=== PATIENT | male | born 1950 | race Caucasian/White ===

== ENCOUNTER 2025-01-10 10:57 | Outpatient (CLI) | payer MEDICARE, OTHER, SELFPAY ==
[2025-01-10 11:53] LABS: Albumin Level 4.6 g/dl (3.5-5.0); Chloride 103 mmol/L (98-107); Potassium 3.9 mmoL/L (3.5-5.1); Sodium 137 mmol/L (136-145)
[2025-01-10 11:56] LABS: Alanine Aminotransferase 32 U/L (12-78); Albumin/Globulin Ratio 1.7 (1.1-1.8); Alkaline Phosphatase 69 U/L (38-126); Anion Gap 9.9 mEq/L (5-15); Aspartate Amino Transferase 36 U/L (17-59); Bilirubin,Total 0.7 mg/dl (0.2-1.3); Blood Urea Nitrogen 18 mg/dl (9-20); Carbon Dioxide 28 mmol/L (22.0-30.0); Estimated Glomerular Filt Rate 111 ml/min (>60); GFR (African American) 134 ML/MIN (>60); Globulin 2.7 g/dL (1.3-3.2); Glucose 143 mg/dl (74-100); Iron 179 ug/dL (49-181); Total Protein,Serum 7.3 g/dl (6.3-8.2)
[2025-01-10 12:07] LABS: Total Iron Binding Capacity 423 ug/dL (261-462)
[2025-01-10 12:32] LABS: Ferritin 63.5 ng/ml (17.9-464)
[2025-01-10 12:55] LABS: INR 0.94 (0.9-1.1); Prothrombin Time 10.4 seconds (9.2-12.1)
[2025-01-10 14:04] LABS: Basophils % 0.4 % (0.1-2.0); Eosinophils # 0.1 K/mm3 (0.0-0.4); Eosinophils % 1.3 % (0.1-12.0); Hematocrit 44.6 % (42.0-52.0); Hemoglobin 15.1 g/dL (14.1-18.0); Lymphocytes # 2.2 K/mm3 (0.7-4.5); Lymphocytes % 30.2 % (10-50); Mean Corpuscular HGB Conc 33.9 g/dL (31.8-35.4); Mean Corpuscular Hemoglobin 31.2 pg (27.0-31.2); Mean Corpuscular Volume 92.1 fl (80-94); Mean Platelet Volume 9.1 fl (7.4-10.4); Monocytes # 0.4 K/mm3 (0.1-1.0); Monocytes % 5.9 % (1.7-9.3); Neutrophils # 4.4 K/mm3 (1.8-7.8); Neutrophils % 61.9 % (37.0-80.0); Platelet Count 227 K/mm3 (142-424); Red Blood Count 4.84 M/mm3 (4.60-6.20); White Blood Count 7.1 K/mm3 (4.8-10.8)
[2025-01-11 08:17] LABS: AFP, Tumor Marker 3.1 ng/mL (0.0-8.4)
[2025-01-13 00:08] LABS: ALT (SGPT) P5P 28 IU/L (0-55); AST (SGOT) P5P 31 IU/L (0-40); Alpha 2-Macroglobulins, Qn 432 mg/dL (110-276); Apolipoprotein A-1 127 mg/dL (101-178); Bilirubin, Total 0.2 mg/dL (0.0-1.2); Cholesterol, Total 189 mg/dL (100-199); Fibrosis Score 0.56 (0.00-0.21); GGT 52 IU/L (0-65); Glucose 144 mg/dL (70-99); Haptoglobin 285 mg/dL (34-355); NASH Score 0.68 (0.00-0.25); Steatosis Score 0.62 (0.00-0.40); Triglycerides 149 mg/dL (0-149)
== END 2025-01-10 23:59 | disposition home or self-care (01) ==
LOC: LAB 10:59
PROVIDERS: PCP Internal Medicine; Visit Provider Internal Medicine Gastroenterology
DX: K75.81 Nonalcoholic steatohepatitis (NASH) (principal); B19.20 Unspecified viral hepatitis C without hepatic coma; Z86.0101 Personal history of adenomatous and serrated colon polyps
CPT/HCPCS: 36415; 80053; 82105; 82172; 82247; 82465; 82728; 82947; 82977; 83010; 83540; 83550; 83883; 84450; 84460; 84478; 85025; 85610

== ENCOUNTER 2025-01-31 07:45 | Outpatient (CLI) | payer MEDICARE, OTHER, SELFPAY ==
--- NOTE | 2025-01-31 08:00 | US_ITS ---
FINAL REPORT CLINICAL HISTORY: Cirrhosis COMPARISON: None FINDINGS: HEPATIC ULTRASOUND Multiple transverse and longitudinal scans were performed of the right upper quadrant of the abdomen. FINDINGS: The liver is hyperechoic with a mildly nodular contour compatible with cirrhosis. No focal hepatic mass identified. No intrahepatic duct dilatation is identified. No evidence of common bile duct dilatation is identified. Doppler exam shows normal directional flow within patent hepatic and portal veins. No obvious gallstones are seen. No evidence of perihepatic fluid is identified. Right kidney is unremarkable. IMPRESSION: Cirrhotic appearance of the liver without evidence of biliary ductal dilatation Reviewed, Interpreted and Dictated by Skip Ness MD Transcribed by Miriam Chatman Authenticated and [facility]
--- NOTE | 2025-01-31 08:45 | CT_ITS ---
FINAL REPORT TECHNIQUE: Oral and IV contrast enhanced exam. Coronal and sagittal reconstructions obtained and reviewed. This study was performed with techniques to keep radiation doses as low as reasonably achievable, (ALARA). Individualized dose reduction techniques using automated exposure control or adjustment of mA and/or kV according to the patient''s size were employed. CLINICAL HISTORY: .ABD PAIN, HX DIVERTICULITIS, NAUSEA COMPARISON: None FINDINGS: Abdomen: No acute density is seen within the lung bases. The liver has a nodular contour suggestive of cirrhosis. There is a small cyst in the liver dome. The spleen is normal in size. Fatty replacement of the pancreas is noted. The remaining solid organs are negative. The gallbladder is unremarkable. The patient is status post gastric sleeve. No bowel obstruction is present. There is no free air. No fluid collection is seen. There is no adenopathy. Pelvis: No evidence of appendicitis. Pelvic bowel loops are unremarkable. The urinary bladder and prostate are unremarkable. There is no free fluid. No pelvic mass is seen. IMPRESSION: No acute findings. Underlying cirrhosis suspected. Reviewed, Interpreted and Dictated by Skip Ness MD Transcribed by Miriam Chatman Authenticated and [facility]
[2025-01-31] MEDS: SODIUM CHLORIDE 0.9% 10ML SYR (RAD ONLY) 10 ML IV (10:06)
[2025-01-31] MEDS: IOPAMIDOL-370 (76%);100ML BOTTLE 75 ML IV (10:07)
[2025-01-31] MEDS: BARIUM SULFATE(READI-CAT2);450ML BOTTLE 450 ML PO (10:07)
--- OUTSIDE RECORDS SUMMARY | 2025-02-01 21:43 | XMS_ITS | Clinical Summary ---
Author Organization [facility] , [facility] Address [address] [place] [address] Phone Care Team Providers Care Bacteriology Professor Name Role Phone Tiffany SCHMITT, Nikolai Collins Unavailable [phone] Festus Huitron MD Unavailable [phone] Reason for Visit and Chief Complaint [Patient Encounter] Problems Includes: Problems addressed during this encounter and other active Problems All Visits Onset Date Resolved Date Provider Condition S tatus Joint Pain, Localized in the Left Shoulder 11/01/2024 Britni Cutler PA-C Active Last Documented On 5 8:57AM ; [facility] Joint Pain in the Right Knee 11/13/2021 Leta Allen MD Active Last Documented On 2 10:34AM ; [facility] Plan of Treatment Pending Tests Order Diagnosis Results Due Ordering Palmira Allen Labs - Aspiration Aspiration 07/23/22 Nikolai teresa MD Last Documented On 2 3:01PM ; [facility] Assessments Includes: Assessments from this encounter No Assessments Recorded Medical Equipment - Implanted Devices Includes: Current Devices No Medical Equipment Recorded Medications Includes: Medications discussed during this encounter and other current Medications Current Medications (continue as prescribed) Ozempic (0.25 or 0.5 MG/DOSE ) 2 MG/3ML Subcutaneous Solution Pen-injector 07/26/2024 Provider: Diagnosis: Last Documented On 4 10:39AM By Kelsey Parisi ; [facility] Mupirocin 2% External Ointment 07/21/2023 Provider: Mainor Sargent MD Diagnosis: Last Documented On 3 9:11AM By Julianna Saba ; [facility], [facility] HumaLOG Mix 75/25 KwikPen (7 5-25) 100 UNIT/ML Subcutaneous Suspension Pen-injector 07/19/2023 Provider: James Huitron MD Diagnosis: Last Documented On 3 3:35PM By Julianna Saba ; [facility], [facility] Sulfamethoxazole-Trimethoprim 800-160 MG Oral Tablet 0 07/19/2023 Provider: Diagnosis: Last Documented On 3 9:11AM By Julianna Saba ; [facility] metroNIDAZOLE 500 MG Oral Tablet 07/19/2023 Provider : Diagnosis: Last Documented On 3 9:11AM By Julianna Saba ; [facility], [facility] ALPRAZolam 0.5 MG Oral Tablet 07/11/2023 Provider: Festus Huitron MD Diagnosis: Last Documented On 3 9:11AM By Julianna Saba ; [facility] Meloxicam 15 MG Oral Tablet 07/09/2023 Provider: Festus Huitron MD Diagnosis: Last Documented On 3 9:11AM By Julianna Saba ; [facility], [facility] Diclofenac Sodium 1% External Gel 07/08/2023 Provide r: Marquez Landa MD Diagnosis: Last Documented On 3 9:11AM By Julianna Saba ; [facility] Lisinopril 20 MG Oral Tablet 06/30/2023 Provider: Festus Huitron MD Diagnosis: Last Documented On 3 3:35PM By Julianna Saba ; [facility] Medications Administered Includes: Administered Medications from this encounter No Administered Medications Recorded Results Includes: Results discussed during this encounter No Results Recorded For Specified Dates History of Present Illness Includes: History of Present Illness from this encounter No History of Present Illness Recorded Social History No Social History Recorded - Smoking Status Unknown Medical History Includes: Medical History addressed during this encounter No Medical History Recorded Family History Includes: Family History addressed during this encounter No Family History Recorded Review of Systems Includes: Review of Systems from this encounter No Review of Systems Recorded Mental Status Includes: Mental Status from this encounter No Mental Status Recorded Functional Status Includes: Functional Status from this encounter No Functional Status Recorded Physical Exam Includes: Physical Exam from this encounter No Physical Exam Recorded Allergies Includes: Active Allergies No Known Allergies Encounters Encounter Provider Location Date Check-In Time Check-Out Time Diagnosis [Patient Encounter] Nikolai Allen MD 3 4:57PM 11:59PM Insurance Includes: Active Insurance Policies Plan Name Member ID Group # Subscriber Relationship Effect jorje Dates 1 - Medicare Part B [facility] [id number] Leonardo S True Self 10/25/2020 - Un known 2 - [employer] [id number] Leonardo S True Self 10/25/2020 - Unknown Clinical Notes Includes: Clinical Notes from this encounter No Clinical Notes Recorded
--- OUTSIDE RECORDS SUMMARY | 2025-02-01 21:43 | XMS_ITS | Clinical Summary ---
Author Organization [facility] , [facility] Address [address] [place] [address] Phone Care Team Providers Care Inflated Pad Buffer Name Role Phone Tiffany SCHMITT, Nikolai Collins Unavailable U tereso Huitron MD, Festus Unavailable [phone] Reason for Visit and Chief Complaint The Chief Complaint is: L shoulder pain Problems Includes: Problems addressed during this encounter and other active Problems Current Visit Onset Date Resolved Date Provider Condsherieo n Status Joint Pain, Localized in the Left Shoulder 11/01/2024 Britni Cutler PA-C Active Last Documented On 5 8:57AM ; [facility], [facility] Past Visits Onset Date Resolved Date Provider Condition Status Joint Pain in the Right Knee 11/13/2021 Nikolai Allen MD Active Last Documented On 2 10:34AM ; [facility], [facility] Plan of Treatment No Plan of Treatment Recorded Assessments Includes: Assessments from this encounter Findings 74-year-old male presents with left shoulder and arm pain. He states about 2 weeks ago he was opening up a bottle when he felt a pop throughout the left elbow followed by increased pain, bruising and swelling throughout the entirety of the left arm. States over the past couple of weeks he has had worsening pain primarily in the left shoulder as well as significant bruising throughout the upper arm and into the forearm. He states overall his symptoms have improved. He states functionally he has full motion of the elbow and wrist. He does have a known history of rotator cuff injury and has had limited mobility in the left shoulder for quite some time. He does have a bit of weakness with lifting involving the left upper extremity. He has been taking Tylenol for pain. No numbness, tingling. - Last Documented On 11/01/2024 1:17PM ; [facility], [facility] Physical exam: - Last Documented On 11/01/2024 1:17PM ; [facility], [facility] Constitutional: Well-developed, well-groomed, well-nourished patient in no acute distress who appears stated age height and weight - Last Documented On 11/01/2024 1:17PM ; [facility], [facility] Psychiatric: Patient is alert and oriented to person place date and situation. Mood and affect are normal for current situation. - Last Documented On 11/01/2024 1:17PM ; [facility], [facility] Neurological: Sensation normal bilateral upper and lower extremities. - Last Documented On 11/01/2024 1:17PM ; [facility], [facility] Skin: No lesions noted on upper or lower extremities. Skin is dry warm and with normal turgor. - Last Documented On 11/01/2024 1:17PM ; [facility], [facility] Vascular: No swelling in upper or lower extremities. Dorsalis pedis pulses normal in lower extremities. - Last Documented On 11/01/2024 1:17PM ; [facility], [facility] Gait and Station: Normal gait without assistive device. Station normal. - Last Documented On 11/01/2024 1:17PM ; [facility], [facility] Right Shoulder: No atrophy. No tenderness to palpation. No crepitation. Active range of motion: Abduction 150?, forward flexion 170?, external rotation 90?, internal rotation to level T10. Passive range of motion: Not limited. Stability: No anterior, no posterior, no inferior laxity. Strength: Forward flexion 5/5, internal rotation 5/5, external rotation 5/5. Negative drop arm test. Negative empty can test. Negative Orozco. Negative cross arm test. Negative liftoff test. Negative Speed's test. Negative apprehension test. Sensation is intact in the radial, ulnar, and median nerve distributions. 2+ radial pulse. - Last Documented On 11/01/2024 1:17PM ; [facility], [facility] Left Arm: Ecchymosis throughout the upper arm and forearm. No tenderness in the elbow. Distal biceps tendon is intact. Full motion of the elbow and wrist. Active range of motion of the shoulder: Abduction 150?, forward flexion 150?, external rotation 90?, internal rotation to level T10. Passive range of motion: pain with terminal flexion. Stability: No anterior, no posterior, no inferior laxity. Strength: Forward flexion 3/5, internal rotation 4/5, external rotation 4/5. Negative drop arm test. Negative empty can test. Negative Orozco. Negative cross arm test. Negative liftoff test.Positive Speed's test. Negative apprehension test. Sensation is intact in the radial, ulnar, and median nerve distributions. 2+ radial pulse. - Last Documented On 11/01/2024 1:17PM ; [facility], [facility] Cervical spine: No tenderness to palpation. No pain with flexion, extension, lateral rotation, or lateral bending of the cervical spine. Negative Spurling's test. - Last Documented On 11/01/2024 1:17PM ; [facility], [facility] Assessment/plan: - Last Documented On 11/01/2024 1:17PM ; [facility], [facility] Left shoulder proximal biceps tear - Last Documented On 11/01/2024 1:17PM ; [facility], [facility] Physical exam and radiograph findings were discussed with the patient. Discussed he does have degenerative changes in his shoulder and likely has weakness due to chronic cuff tearing. We discussed the bruising is likely a result of injury to the proximal biceps as he does have full function of the elbow and wrist. I am giving him a physical therapy order today to continue working on strengthening. If symptoms worsen any point he will contact our office. For now he can follow up as needed. - Last Documented On 11/01/2024 1:17PM ; [facility], [facility] Medical Equipment - Implanted Devices Includes: Current Devices No Medical Equipment Recorded Medications Includes: Medications discussed during this encounter and other current Medications Current Medications (continue as prescribed) Ozempic (0.25 or 0.5 MG/DOSE ) 2 MG/3ML Subcutaneous Solution Pen-injector 07/26/2024 Provider: Diagnosis: Last Documented On 4 10:39AM By Kelsey Parisi ; [facility], [facility] Mupirocin 2% External Ointment 07/21/2023 Provider: Mainor Sargent MD Diagnosis: Last Documented On 3 9:11AM By Julianna Saba ; [facility], [facility] HumaLOG Mix 75/25 KwikPen (7 5-25) 100 UNIT/ML Subcutaneous Suspension Pen-injector 07/19/2023 Provider: James Huitron MD Diagnosis: Last Documented On 3 3:35PM By Julianna Saba ; [facility], [facility] Sulfamethoxazole-Trimethoprim 800-160 MG Oral Tablet 0 07/19/2023 Provider: Diagnosis: Last Documented On 3 9:11AM By Julianna Saba ; [facility] metroNIDAZOLE 500 MG Oral Tablet 07/19/2023 Provider : Diagnosis: Last Documented On 3 9:11AM By Julianna Saba ; [facility] ALPRAZolam 0.5 MG Oral Tablet 07/11/2023 Provider: Festus Huitron MD Diagnosis: Last Documented On 3 9:11AM By Julianna Saba ; [facility], [facility] Meloxicam 15 MG Oral Tablet 07/09/2023 Provider: Festus Huitron MD Diagnosis: Last Documented On 3 9:11AM By Julianna Saba ; [facility], [facility] Diclofenac Sodium 1% External Gel 07/08/2023 Provide r: Marquez Landa MD Diagnosis: Last Documented On 3 9:11AM By Julianna Saba ; [facility], [facility] Lisinopril 20 MG Oral Tablet 06/30/2023 Provider: Festus Huitron MD Diagnosis: Last Documented On 3 3:35PM By Julianna Saba ; [facility], [facility] Past Medications on file traMADol HCl 50 MG Oral Tablet 12/15/2022 - 12/20/2022 Provider: Nikolai teresa MD Diagnosis: 1-2 po q 4-6h Last Documented On 3 11:51AM By Sourav Allen ; [facility], [facility] HYDROcodone-Acetaminophen 10 -325 MG Oral Tablet 12/15/2022 - 12/25/2022 Provider: Nikolai Allen MD Diagnosis: 1trl0-3m Last Documented On 3 2:08PM By Sourav Allen ; [facility], [facility] Ondansetron HCl 4 MG Oral Tablet 12/07/2022 - 12/12/2022 Provider: Nikolai Allen MD Diagnosis: [id number] Last Documented On 3 9:56AM By Dottie Acosta ; [facility] MS Contin 15 MG Oral Tablet Extended Release 11/24/2022 - 12/01/2022 Provider: Nikolai Allen MD Diagnosis: 1 tab every 12 hours Last Documented On 3 11:22AM By Sourav Allen ; [facility] HYDROcodone-Acetaminophen 10 -325 MG Oral Tablet 11/24/2022 - 12/04/2022 Provider: Nikolai Allen MD Diagnosis: 1-2 po q 4-6h Last Documented On 3 11:21AM By Sourav Allen ; [facility] Ondansetron HCl 4 MG Oral Tablet 11/24/2022 - 11/29/2022 Provider: Nikolai Allen MD Diagnosis: [id number] Last Documented On 3 11:21AM By Sourav Allen ; [facility] Meloxicam 15 MG Oral Tablet 11/24/2022 - 12/24/2022 Provider: Nikolai teresa MD Diagnosis: once a day Last Documented On 3 11:21AM By Sourav Allen ; [facility] Colace 100 MG Oral Capsule 11/24/2022 - 02/22/2023 Provider: Nikolai teresa MD Diagnosis: 1-2 tabs daily Last Documented On 3 11:21AM By Sourav Allen ; [facility] Cefadroxil 500 MG Oral Capsule 11/24/2022 - 11/27/2022 Provider: Nikolai teresa MD Diagnosis: twice a day Last Documented On 3 11:21AM By Sourav Allen ; [facility] Aspirin 81 MG Oral Tablet Delayed Release 11/24/2022 - 03/30/2023 Provider: Nikolai Allen MD Diagnosis: twice a day Last Documented On 3 11:21AM By Sourav Allen ; [facility] traMADol HCl 50 MG Oral Tablet 11/24/2022 - 11/29/2022 Provider: Nikolai teresa MD Diagnosis: 1-2 po q 4-6h Last Documented On 3 11:21AM By Sourav Allen ; [facility] Vitamin D3 50 MCG (1999 [place]) Oral Tablet 11/03/2022 - 12/03/2022 Provider: Carrie PABLO Diagnosis: once a day Last Documented On 3 2:43PM By Carrie Sandoval ; [facility] Medications Administered Includes: Administered Medications from this encounter No Administered Medications Recorded Vital Signs Includes: Vital Signs from this encounter Vital Name 11/01/2024 08:57A Height (in) 76 Weight (lb) 225 Body Mass Index 27.4 Body Surface Area 2.3 Note: hj Last Documented: On 11/01/2024 8:57AM ; [facility] Results Includes: Results discussed during this encounter No Results Recorded For Specified Dates History of Present Illness Includes: History of Present Illness from this encounter ANTHONY Dozier is a 74 year old male. - Allergy list reviewed - Problem list reviewed - Medication list reviewed Social History No Social History Recorded - Smoking Status Unknown Procedures and Surgical History Includes: Procedures from this encounter Procedures Code Diagnosis Performing Provider Service Location Service Date X-RAY EXAM OF SHOULDER 2-3 VIEWS (LEFT) 71958 Strain of musc/fasc/tend prt biceps, left arm, in Britni Cutler PA-C [facility] 11/01/2024 Last Documented On 5 10:02AM ; [facility] X-RAY EXAM OF FOREARM 2 VIEWS (LEFT) 41639 Strain of musc/fasc/tend prt biceps, left arm, in Britni Cutler PA-C [facility] 11/01/2024 Last Documented On 5 10:02AM ; [facility] Medical History Includes: Medical History addressed during [...] Exam Includes: Physical Exam from this encounter Allergies Includes: Active Allergies No Known Allergies Encounters Encounter Provider Location Date Check-In Time Check-Out Time Diagnosis Next Available Non-Specified Physician Britni Cutler PA-C [facility] 11/01/19 25 8:50AM 9:29AM Insurance Includes: Active Insurance Policies Plan Name Member ID Group # Subscriber Relationship Effect jorje Dates 1 - Medicare Part [place] of [place] [id number] Leonardo Dozier Self 10/25/2020 - Un known 2 - [employer] [id number] Leonardo Gaines True Self 10/25/2020 - Unknown Clinical Notes Includes: Clinical Notes from this encounter * Progress note Date Encounter Last Documented by 11/01/2024 Next Available Non-S pecified Physician Last documented on 11/01/2024; 1:17 PM, Britni Cutler PA-C; [facility], [facility] Active Problems & Conditions - Joint Pain in the Right Knee - Joint Pain, Localized in the Left Shoulder Chief Complaint The Chief Complaint is: L shoulder pain. History of Present Illness Leonardo Dozier is a 74 year old male. - Allergy list reviewed - Problem list reviewed - Medication list reviewed Current Medication - ALPRAZolam 0.5 MG Oral Tablet 30 days, 0 refills - Diclofenac Sodium 1% External Gel 7 days, 0 refills - HumaLOG Mix 75/25 KwikPen (75-25) 100 UNIT/ML Subcutaneous Suspension Pen- injector use as directed 81 days, 0 refills - Lisinopril 20 MG Oral Tablet use as directed 90 days, 0 refills - Meloxicam 15 MG Oral Tablet 90 days, 0 refills - metroNIDAZOLE 500 MG Oral Tablet 10 days, 0 refills - Mupirocin 2% External Ointment 30 days, 0 refills - Ozempic (0.25 or 0.5 MG/DOSE) 2 MG/3ML Subcutaneous Solution Pen-injector 28 days, 0 refills - Sulfamethoxazole-Trimethoprim 800-160 MG Oral Tablet 10 days, 0 refills Allergies - No Known Allergies Physical Findings - Vitals taken 11/01/2024 08:57 am hj Height 76 in Weight 225 lbs Body Mass Index 27.4 kg/m2 Body Surface Area 2.3 m2 Tests Two-view radiographs left forearm ordered and reviewed by me reveal no acute bony abnormalities, fracture or dislocation Four view radiographs left shoulder reveal moderate degenerative changes, no acute bony abnormalities, fracture or dislocation Assessment 74-year-old male presents with left shoulder and arm pain. He states about 2 weeks ago he was opening up a bottle when he felt a pop throughout the left elbow followed by increased pain, bruising and swelling throughout the entirety of the left arm. States over the past couple of weeks he has had worsening pain primarily in the left shoulder as well as significant bruising throughout the upper arm and into the forearm. He states overall his symptoms have improved. He states functionally he has full motion of the elbow and wrist. He does have a known history of rotator cuff injury and has had limited mobility in the left shoulder for quite some time. He does have a bit of weakness with lifting involving the left upper extremity. He has been taking Tylenol for pain. No numbness, tingling. Physical exam: Constitutional: Well-developed, well-groomed, well-nourished patient in no acute distress who appears stated age height and weight Psychiatric: Patient is alert and oriented to person place date and situation. Mood and affect are normal for current situation. Neurological: Sensation normal bilateral upper and lower extremities. Skin: No lesions noted on upper or lower extremities. Skin is dry warm and with normal turgor. Vascular: No swelling in upper or lower extremities. Dorsalis pedis pulses normal in lower extremities. Gait and Station: Normal gait without assistive device. Station normal. Right Shoulder: No atrophy. No tenderness to palpation. No crepitation. Active range of motion: Abduction 150-, forward flexion 170-, external rotation 90-, internal rotation to level T10. Passive range of motion: Not limited. Stability: No anterior, no posterior, no inferior laxity. Strength: Forward flexion 5/5, internal rotation 5/5, external rotation 5/5. Negative drop arm test. Negative empty can test. Negative Orozco. Negative cross arm test. Negative liftoff test. Negative Speed's test. Negative apprehension test. Sensation is intact in the radial, ulnar, and median nerve distributions. 2+ radial pulse. Left Arm: Ecchymosis throughout the upper arm and forearm. No tenderness in the elbow. Distal biceps tendon is intact. Full motion of the elbow and wrist. Active range of motion of the shoulder: Abduction 150-, forward flexion 150-, external rotation 90-, internal rotation to level T10. Passive range of motion: pain with terminal flexion. Stability: No anterior, no posterior, no inferior laxity. Strength: Forward flexion 3/5, internal rotation 4/5, external rotation 4/5. Negative drop arm test. Negative empty can test. Negative Orozco. Negative cross arm test. Negative liftoff test.Positive Speed's test. Negative apprehension test. Sensation is intact in the radial, ulnar, and median nerve distributions. 2+ radial pulse. Cervical spine: No tenderness to palpation. No pain with flexion, extension, lateral rotation, or lateral bending of the cervical spine. Negative Spurling's test. Assessment/plan: Left shoulder proximal biceps tear Physical exam and radiograph findings were discussed with the patient. Discussed he does have degenerative changes in his shoulder and likely has weakness due to chronic cuff tearing. We discussed the bruising is likely a result of injury to the proximal biceps as he does have full function of the elbow and wrist. I am giving him a physical therapy order today to continue working on strengthening. If symptoms worsen any point he will contact our office. For now he can follow up as needed. Notes This dictation was done with voice recognition software and may contain errors and omissions. Care Team - Festus Huitron MD
--- OUTSIDE RECORDS SUMMARY | 2025-02-01 21:43 | XMS_ITS ---
Care Plan - [facility] Created on: February 01, 2025 Leonardo Dozier : 1950 Sex: Male Author Organization [facility] Address [address] [place] [address] Phone Care Team Providers Care Insurance Account Assistant Name Role Phone Tiffany SCHMITT, Nikolai Collins Unavailable [phone] Festus Huitron MD Unavailable [phone]
--- OUTSIDE RECORDS SUMMARY | 2025-02-01 21:43 | XMS_ITS | Continuity of Care Document ---
[facility] Organization [facility] Address [address] [place] [address] Care Team Providers Care Spot Worker Name Role Phone PAMELA COVARRUBIAS Primary Care Provider Assessment No assessment recorded. Plan of Treatment Reminders Order Date Submit Date Provider Last Modified By Organization Details Last Modified Time Details Appointments AT RISK/R OUTINE CARE 025 11:00AM Kendal Gannon DPM Not available Not available Not available Lab None record ed. Referral None record ed. Procedures None record ed. Surgeries None record ed. Imaging None record ed. Medication Orders None record ed. Patient TargetsNo targets recorded. Patient InstructionsNo instructions recorded. Reason for Referral None Reported. Problems Name Problem SNOMED Code Status Onset Date Resolution Date Notes Provider Name and Address Organization Details Recorded Time Onychomyco sis 840981543 Active 2022 Linda Alvarado [facility] 3 10:04:19 Pain in left foot 8395341676008 07 Active 2022 Linda Alvarado [facility] 3 10:04:22 Pain in right foot 0660349643087 07 Active 2022 Linda Alvarado [facility] 3 10:04:24 Ulcer of right foot 492310673 Active 2022 Linda Alvarado [facility] 3 10:04:36 Cellulitis of right foot 9056066273554 9105 Active 2022 Linda Alvarado [facility] 3 10:07:04 Peripheral neuropathy due to type 2 diabetes mellitus 8123226933300 Active 2022 Kendal Gannon DPM [address] [place] [address], [phone] , [facility] 3 10:20:48 Chronic osteomyeli tis of right foot 8829438066049 104 Active 2022 Kendal Gannon DPM [address] [place] [address], [phone] , [facility] 3 13:29:50 Acquired hammer toe of right foot 1887909548787 105 Active 2023 Kendal Gannon DPM [address] [place] [address], [phone] , [facility] 4 09:18:54 Acquired keratoderm a 766431380 Active 2024 Kendal Gannon DPM [address] [place] [address], [phone] , [facility] 5 11:05:32 Cirrhosis of liver 20969422 Active 2024 Kendal Gannon DPM [address] [place] [address], [phone] , [facility] 5 11:29:03 Problem Notes None recorded. 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 Procedure Notes None recorded. Medical Equipment None Reported. Medications Name Sig Start Date Stop Date Status Note LastModified by Organization Details LastModified Time amoxicillin 500 mg capsule active Not Available Not Available Not Available doxycycline hyclate 100 mg capsule TAKE 1 CAPSULE BY MOUTH TWICE DAILY TIL GONE active Not Available Not Available No t Available nabumetone 750 mg tablet active Not Available Not Available Not Available clindamycin HCl 300 mg capsule TAKE 1 CAPSULE BY MOUTH EVERY 8 HOURS UNTIL GONE active Not Available Not Available N ot Available tizanidine 4 mg tablet TAKE 1 TABLET BY MOUTH EVERY 12 HOURS NEEDED active Not Available Not Available No t Available meloxicam 15 mg tablet TAKE 1 TABLET BY MOUTH EVERY DAY WITH FOOD active Not Available Not Available No t Available lisinopril 20 mg tablet TAKE 1 TABLET BY MOUTH EVERY OTHER DAY AT BEDTIME active Not Available Not Available N ot Available ondansetron HCl 4 mg tablet TAKE 1 TABLET BY MOUTH EVERY 4 TO 6 HOURS NEEDED active Not Available Not Available No t Available metronidazol e 500 mg tablet TAKE 1 TABLET BY MOUTH FOUR TIMES DAILY FOR 10 DAYS active Not Available Not Available Not Available ciprofloxaci n 500 mg tablet TAKE 1 TABLET BY MOUTH TWICE DAILY FOR 10 DAYS active Not Available Not Available No t Available sulfamethoxa zole 800 mg-trimethop rim 160 mg tablet TAKE 1 TABLET BY MOUTH TWICE DAILY FOR 10 DAYS active Not Available Not Available No t Available hydrocodone 10 mg-acetamino phen 325 mg tablet TAKE 1 TABLET BY MOUTH TWICE DAILY active Not Available Not Available No t Available doxycycline monohydrate 100 mg tablet TAKE 1 TABLET BY MOUTH TWICE DAILY FOR 7 DAYS active Not Available Not Available No t Available tramadol 50 mg tablet TAKE 1-2 TABLETS BY MOUTH EVERY 4-6 HOURS NEEDED. active Not Available Not Available N ot Available ondansetron 8 mg disintegrati ng tablet DISSOLVE 1 TABLET ON THE TONGUE EVERY 12 HOURS active Not Available Not Available No t Available dexamethason e 0.5 mg/5 mL oral solution RINSE AND SPIT OUT THREE TIMES DAILY active Not Available Not Available No t Available dexamethason e 0.5 mg/5 mL oral elixir RINSE AND SPIT THREE TIMES DAILY DIRECTED active Not Available Not Available Not Available cefadroxil 500 mg capsule active Not Available Not Available Not Available alprazolam 0.5 mg tablet active Not Available Not Available Not Available linezolid 600 mg tablet TAKE 1 TABLET BY MOUTH TWICE DAILY active Not Available Not Available No t Available doxycycline monohydrate 100 mg capsule TAKE 1 CAPSULE BY MOUTH TWICE DAILY active Not Available Not Available No t Available hydrocodone 7.5 mg-acetamino phen 325 mg tablet TAKE 1 TABLET BY MOUTH EVERY 4 TO 6 HOURS NEEDED active Not Available Not Available No t Available esomeprazole magnesium 40 mg capsule,rivka yed release TAKE 1 CAPSULE BY MOUTH DAILY active Not Available Not Available Not Available buspirone 10 mg tablet TAKE 1 TABLET BY MOUTH TWICE DAILY active Not Available Not Available No t Available lisinopril 10 mg tablet TAKE 1 TABLET BY MOUTH DAILY active Not Available Not Available Not Available promethazine 25 mg tablet TAKE 1 TABLET BY MOUTH TWICE DAILY active Not Available Not Available No t Available betamethason e dipropionate 0.05 % topical cream APPLY A THIN LAYER TOPICALLY TO THE AFFECTED AREA 3-4 TIMES DAILY active Not Available Not Available Not Available acetaminophe n 300 mg-codeine 60 mg tablet TAKE 1 TABLET BY MOUTH TWICE DAILY active Not Available Not Available No t Available mupirocin 2 % topical ointment APPLY 1 GRAM TOPICALLY TO WOUNDS ONCE DAILY active Not Available Not Available N ot Available levofloxacin 750 mg tablet TAKE 1 TABLET BY MOUTH DAILY active Not Available Not Available Not Available zolpidem 10 mg tablet TAKE 1 TABLET BY MOUTH AT BEDTIME NEEDED FOR SLEEP active Not Available Not Available No t Available methylpredni solone 4 mg tablets in a dose pack FOLLOW PACKAGE DIRECTIONS active Not Available Not Available N ot Available colchicine 0.6 mg tablet TAKE 1 TABLET BY MOUTH THREE TIMES DAILY NEEDED FOR GOUT FLARE UP active Not Available Not Available No t Available ketoconazole 2 % topical cream APPLY TOPICALLY TO THE AFFECTED AREA TWICE DAILY active Not Available Not Available No t Available doxycycline hyclate 100 mg tablet TAKE 1 TABLET BY MOUTH TWICE DAILY FOR 10 DAYS active Not Available Not Available No t Available Ventolin HFA 90 mcg/actuatio n aerosol inhaler INHALE 2 PUFFS BY MOUTH FOUR TIMES DAILY NEEDED active Not Available Not Available No t Available rosuvastatin 10 mg tablet TAKE 1 TABLET BY MOUTH AT BEDTIME active Not Available Not Available No t Available rosuvastatin 20 mg tablet active Not Available Not Available Not Available chlorhexidin e gluconate 0.12 % mouthwash RINSE AND SPIT 15 ML ORALLY TWICE DAILY active Not Available Not Available Not Available Januvia 25 mg tablet active Not Available Not Available No t Available Humalog Mix 75-25 KwikPen U-100 insulin 100 unit/mL subcutaneous pen INJECT 25 UNITS UNDER THE SKIN EVERY MORNING AND 10 UNITS EVERY PM - TITRATE TO A MAX OF 50 UNITS DAILY active Not Available Not Available Not Available diclofenac 1 % topical gel APPLY 4 GRAMS TO AFFECTED AREA FOUR TIMES DAILY active Not Available Not Available Not Available cholecalcife rol (vitamin D3) 50 mcg (2,000 unit) tablet TAKE 1 TABLET BY MOUTH ONCE DAILY active Not Available Not Available No t Available Allergy Relief (fexofenadin e) 180 mg tablet TAKE 1 TABLET BY MOUTH DAILY active Not Available Not Available Not Available Dalvance 500 mg intravenous solution Inject 500 mg by intravenous route, for right foot cellulitis. 2022 active Not Available Not Available Not Avai lable Trulicity 1.5 mg/0.5 mL subcutaneous pen injector ADMINISTER 1.5 MG UNDER THE SKIN 1 TIME EVERY WEEK active Not Available Not Available N ot Available Trulicity 0.75 mg/0.5 mL subcutaneous pen injector ADMINISTER 0.75 MG UNDER THE SKIN 1 TIME EVERY WEEK active Not Available Not Available N ot Available naloxone 4 mg/actuation nasal spray SPRAY 1 SPRAY INTO 1 NOSTRIL NEEDED FOR OPIOID REVERSAL - FOLLOW DIRECTIONS ON PACKAGE active Not Available Not Available N ot Available TRUEplus Ketone strips USE IF NEEDED FOR HIGH BLOOD SUGAR active Not Available Not Available No t Available FreeStyle Neris 2 Sensor kit CHANGE EVERY 10 DAYS active Not Available Not Available No t Available Ozempic 0.25 mg or 0.5 mg (2 mg/3 mL) subcutaneous pen injector INJECT 0.25MG UNDER THE SKIN WEEKLY FOR 4 WEEKS THEN INCREASE TO 0.5 MG WEEKLY active Not Available Not Available No t Available Vitals Date Recorded Body height Body mass index (BMI) Body weight Heart rate Body temperature Pain severity - 0-10 verbal numeric rating [Score] - Reported Systolic blood pressure Diastolic blood pressure Provider Name and Address Organization Details Last Updated DateTime 5 193.04 cm 27.6 kg/m2 233175. 47 g 71 /min 97.8 [degF] 0 120 mm[Hg] 74 mm[Hg] Rose Marie Wen [facility] 5 10:19:39 Social History Question Answer Notes LastModified by Organization D etails LastModified Time Do You Smoke? No Information not available 09/21/2023 Do You Drink? No Information not available 09/21/2023 Illicit Drug Use? No Informa tion not available 09/21/2023 Children? Yes Information no t available 09/21/2023 Sex: Unknown Functional Status None recorded. Mental Status None recorded. Family History Nothing Reported. Medical History Condition Response Diabetes Y Past Encounters Encounter ID Performer Location Encounter Start Date Encounter Closed Date Diagnosis/Indication Diagnosis SNOMED-CT Code Diagnosis ICD10 Code Diagnosis Note [id number] Kendal Gannon DPM [facility] [address] [place] [address] 01/17/2025 10:06:41 01/17/2025 10:58:28 Onychomycosis 618800919 B35.1 Discussed exam findings, diagnosis, and all treatment options with patient Reviewed with patient the causes and etiology of nail fungus vs dystrophic changes in the nails due to other causes not associated with fungal elements. Discussed all treatment options for the nail/s which include, topical medication , oral antifungal medication , permanent removal of the nail/s, and avulsion of the nail/s with PAS stain to check for fungal elements. Patient was informed of risks and side effects associated with each respective treatment. Discussed the nail/s may be dystrophic due to repetitive trauma, and potential for nail appearance to remain as is. Advised the patient that the appearance of nail/s is not considered to be harmful. Peripheral neuropathy due to type 2 diabetes mellitus 3670789778 107 E11.42 ~ Patient has Type 2 Diabetes Mellitus with polyneurop athy. The patient was given a full diabetes assessment which includes assessment of the patient's skin (presence of keratoderm a/ulcer), their neurologic al assessment (neuropath y), the patient's nails, vascular status and the quality and fit of their shoes. The patient was educated regarding their risk for ulceration and amputation . Full assessment of the patient's needs from a palliative standpoint was performed including nails, skin, swelling and need for any other nail or ancillary studies. Pain in right foot 67313 [id number] 76943 M79.671 Pain in left foot 663497 0503 04730 M79.672 Acquired keratoderma 400 875810 L85.1 Discussed in detail the etiology and pathology of keratosisD iscussed in detail treatment options which include shoe accommodat ions, cream applicatio n, and debridemen t.Warned of the potential to return.Dis cussed appropriat e shoe gear in order to reduce the pressure points on the plantar aspect of both feet.Discu ssed appropriat e use of emollient. Cirrhosis of liver 007 K74.60 Stable from podiatric perspectiv e, stated to continue to follow up with treating provider. If any acute issues arise patient advised to immediatel y call treating provider and patient confirms understand ing of such Health Concerns Section Related Observation LastModified by Organization Detai ls LastModified Time None Recorded Concern Status LastModified by Organization Details LastModified Time None Recorded Payers Encounter Date Sequence Insurance Name Policy Number Policy Saez Covered Member ID Saez Member ID Guarantor Name 01/17/2025 1 [place] [id number] Leonardo Gaines True [id number] Leonardo True 01/17/2025 2 [facility] (MEDICARE SUPPLEMENT) [id number] Leonardo Gaines True [id number] Leonardo True Notes Date Note Type Note Provider Name and Address Organization Details Recorded Time 01/17/2025 text/html Patient presents for diabetic evaluation and for diabetic foot care. This patient was last seen by their physician treating their diabetes approximately:1 month ago This patient's last blood sugar was 160mg/dl and last HbA1C 6.7% The patient admits to neuropathy symptoms associated with numbness, tingling, or burning. Patient complains of toenails that are painful, long, thickened, discolored, and interfering with shoe gear. Kendal Gannon DPM [facility] [place], [address], [facility] 01/17/2025 11:29:29
--- OUTSIDE RECORDS SUMMARY | 2025-02-01 21:44 | XMS_ITS | Clinical Summary ---
Author Organization [facility] Address [address] [place] [address] Phone Care Team Providers Care Nurse Practitioner Name Role Phone Tiffany SCHMITT, Nikolai Collins Unavailable [phone] Tomy SCHMITT, Festus Unavailable [phone] Reason for Visit and Chief Complaint The Chief Complaint is: Left knee pain Problems Includes: Problems addressed during this encounter and other active Problems All Visits Onset Date Resolved Date Provider Condition S tatus Joint Pain, Localized in the Left Shoulder 11/01/2024 Britni Cutler PA-C Active Last Documented On 5 8:57AM ; [facility] Joint Pain in the Right Knee 11/13/2021 Leta Allen MD Active Last Documented On 2 10:34AM ; [facility] Plan of Treatment Fall Risk Assessment: This patient has been identified as a fall risk. Balance/gait along with postural blood pressure, vision and home fall hazards have been assessed. Medications have been reviewed, and recommendations made with regard to contributing factors for future falls. Plan of care: Consideration of vitamin D supplementation along with balance and strength training with consideration for formal physical therapy has been discussed with the patient. - Last Documented On 08/04/2024 9:59AM ; [facility], [facility] NON-SURGICAL PLAN: MAINTAIN GOOD SHOES MAINTAIN HEALTHY WEIGHT CAN CALL FOR LEFT KNEE CORTISONE INJECTION PRN PAIN IN INJECTION CLINIC SURGICAL PLAN: CAN CALL TO SCHEDULE LEFT TKA. [facility]. - Last Documented On 08/04/2024 9:59AM ; [facility] PCP CLEARANCE FOLLOW UP: PRN PAIN - Last Documented On 08/04/2024 9:59AM ; [facility] Pending Tests Order Diagnosis Results Due Ordering Palmira Allen Labs - Aspiration Aspiration 07/23/22 Nikolai teresa MD Last Documented On 2 3:01PM ; [facility] Assessments Includes: Assessments from this encounter Findings SEVERE LEFT KNEE DJD. SO FAR DOING WELL WITH INJECTIONS. VERY PLEASED WITH RIGHT TKA. DOUBT REFERRED PAIN FROM LEFT HIP CAUSING KNEE PAIN SINCE PATIENT GETS GOOD RELIEF FROM INJECTIONS AT THIS TIME. - Last Documented On 08/04/2024 9:59AM ; [facility] Medical Equipment - Implanted Devices Includes: Current Devices No Medical Equipment Recorded Medications Includes: Medications discussed during this encounter and other current Medications Current Medications (continue as prescribed) Ozempic (0.25 or 0.5 MG/DOSE ) 2 MG/3ML Subcutaneous Solution Pen-injector 07/26/2024 Provider: Diagnosis: Last Documented On 4 10:39AM By Kelsey Parisi ; [facility] Mupirocin 2% External Ointment 07/21/2023 Provider: Mainor Sargent MD Diagnosis: Last Documented On 3 9:11AM By Julianna Saba ; [facility] HumaLOG Mix 75/25 KwikPen (7 5-25) 100 UNIT/ML Subcutaneous Suspension Pen-injector 07/19/2023 Provider: James Huitron MD Diagnosis: Last Documented On 3 3:35PM By Julianna Saba ; [facility] Sulfamethoxazole-Trimethoprim 800-160 MG Oral Tablet 0 07/19/2023 Provider: Diagnosis: Last Documented On 3 9:11AM By Julianna Saba ; [facility] metroNIDAZOLE 500 MG Oral Tablet 07/19/2023 Provider : Diagnosis: Last Documented On 3 9:11AM By Julianna Saba ; [facility] ALPRAZolam 0.5 MG Oral Tablet 07/11/2023 Provider: Festus Huitron MD Diagnosis: Last Documented On 3 9:11AM By Julianna Saba ; [facility] Meloxicam 15 MG Oral Tablet 07/09/2023 Provider: Festus Huitron MD Diagnosis: Last Documented On 3 9:11AM By Julianna Saba ; [facility] Diclofenac Sodium 1% External Gel 07/08/2023 Provide r: Marquez Landa MD Diagnosis: Last Documented On 3 9:11AM By Julianna Saba ; [facility] Lisinopril 20 MG Oral Tablet 06/30/2023 Provider: Festus Huitron MD Diagnosis: Last Documented On 3 3:35PM By Julianna Saba ; [facility] Past Medications on file traMADol HCl 50 MG Oral Tablet 12/15/2022 - 12/20/2022 Provider: Nikolai teresa MD Diagnosis: 1-2 po q 4-6h Last Documented On 3 11:51AM By Sourav Allen ; [facility] HYDROcodone-Acetaminophen 10 -325 MG Oral Tablet 12/15/2022 - 12/25/2022 Provider: Nikolai Allen MD Diagnosis: [id number] Last Documented On 3 2:08PM By Sourav Allen ; [facility] Ondansetron HCl 4 MG Oral Tablet 12/07/2022 - 12/12/2022 Provider: Nikolai Allen MD Diagnosis: [id number] Last Documented On 3 9:56AM By Dottie Aocsta ; [facility] MS Contin 15 MG Oral Tablet Extended Release 11/24/2022 - 12/01/2022 Provider: Nikolai Allen MD Diagnosis: 1 tab every 12 hours Last Documented On 3 11:22AM By Sourav Allen ; [facility] HYDROcodone-Acetaminophen 10 -325 MG Oral Tablet 11/24/2022 - 12/04/2022 Provider: Nikolai Allen MD Diagnosis: 1-2 po q 4-6h Last Documented On 3 11:21AM By Sourav Allen ; [facility] Ondansetron HCl 4 MG Oral Tablet 11/24/2022 - 11/29/2022 Provider: Nikolai Allen MD Diagnosis: [id number] Last Documented On 3 11:21AM By Sourav Allen ; [facility] Meloxicam 15 MG Oral Tablet 11/24/2022 - 12/24/2022 Provider: Nikolai teresa MD Diagnosis: once a day Last Documented On 3 11:21AM By Sourav Allen ; [facility] Colace 100 MG Oral Capsule 11/24/2022 - 02/22/2023 Provider: Nikolai teresa MD Diagnosis: 1-2 tabs daily Last Documented On 3 11:21AM By Sourav Allen ; [facility] Cefadroxil 500 MG Oral Capsule 11/24/2022 - 11/27/2022 Provider: Nikolai teresa MD Diagnosis: twice a day Last Documented On 11:21AM By Sourav Allen ; [facility] Aspirin 81 MG Oral Tablet Delayed Release 11/24/2022 - 03/30/2023 Provider: Nikolai Allen MD Diagnosis: twice a day Last Documented On 11:21AM By Sourav Allen ; [facility], [facility] traMADol HCl 50 MG Oral Tablet 11/24/2022 - 11/29/2022 Provider: Nikolai teresa MD Diagnosis: 1-2 po q 4-6h Last Documented On 3 11:21AM By Sourav Allen ; [facility] Vitamin D3 50 MCG (1999 [place]) Oral Tablet 11/03/2022 - 12/03/2022 Provider: Carrie PABLO Diagnosis: once a day Last Documented On 2:43PM By Carrie Sandoval ; [facility] Medications Administered Includes: Administered Medications from this encounter No Administered Medications Recorded Vital Signs Includes: Vital Signs from this encounter Vital Name 08/03/2024 10:42A Height (in) 76 Weight (lb) 225 Body Mass Index 27.4 Body Surface Area 2.3 Note: sv Last Documented: On 08/03/2024 10:43A M ; [facility] Results Includes: Results discussed during this encounter No Results Recorded For Specified Dates History of Present Illness Includes: History of Present Illness from this encounter ANTHONY Dozier is a 74 year old male. - Allergy list reviewed - Problem list reviewed - Medication list reviewed - Pain is occasional (25% of the time) - Patient pain level from 1-10: 3 - History of Physical Therapy - History of Injections - No previous treatment. Social History Description Last Updated Exercising regularly 03/04/2023 Last Documented On 4 10:09AM ; [facility] Tobacco non-user 02/19/2023 Last Documented On 4 10:09AM ; [facility] Not a current smoker. 02/19/2023 Last Documented On 4 10:09AM ; [facility] Non-smoker 11/13/2021 Last Documented On 4 10:09AM ; [facility] Caffeine use 11/13/2021 Last Documented On 4 10:09AM ; [facility] No recent change in diet 11/13/2021 Last Documented On 4 10:09AM ; [facility] Not using alcohol 11/13/2021 Last Documented On 4 10:09AM ; [facility] Not using drugs 11/13/2021 Last Documented On 4 10:09AM ; [facility] Smoking Status Unknown Procedures and Surgical History Includes: Procedures from this encounter Procedures Code Diagnosis Performing Provider Service Location Service Date X-RAY EXAM OF KNEE 3 VIEWS (LEFT) 35116 Unilateral primary osteoarthritis, left knee Nikolai Allen MD [facility] 08/03/2024 Last Documented On 4 11:22AM ; [facility] X-RAY EXAM OF PELVIS 1-2 VIEWS [id number] Bilateral primary osteoarthritis of hip Nikolai Allen MD [facility] 08/03/2024 Last Documented On 4 11:22AM ; [facility] an X-ray was performed [facility] 07/29/23 [id number] Last Documented On 4 10:09AM ; [facility] Surgical History Last Updated History of total knee arthroplasty 12/15 Last Documented On 4 10:09AM ; [facility] Medical History Includes: Medical History addressed during this encounter Description Last Updated Use of CPAP 08/03/2024 Last Documented On 4 9:59AM ; [facility] History of arthritis 12/15/2022 Last Documented On 4 10:09AM ; [facility] History of diverticulitis of colon 12/15 Last Documented On 4 10:09AM ; [facility] History of Liver Disease 12/15/2022 Last Documented On 4 10:09AM ; [facility] History of diabetes mellitus 11/13/2021 Last Documented On 4 10:09AM ; [facility] History of Sleep Apnea 11/13/2021 Last Documented On 4 10:09AM ; [facility] Past Surgical History: 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 11/13/2021 Last Documented On 4 10:09AM ; [facility] Recent immunization for flu 06/25/2021 Last Documented On 4 10:09AM ; [facility] Recent immunization for pneumococcal pne umonia 06/25/2021 11/13/2021 Last Documented On 4 10:09AM ; [facility] Past medical and surgical history non-co ntributory 11/13/2021 Last Documented On 4 10:09AM ; [facility] Family History Includes: Family History addressed during this encounter Description Last Updated Diabetes mellitus 12/15/2022 Last Documented On 4 10:09AM ; [facility] Family history of cancer 12/15/2022 Last Documented On 4 10:09AM ; [facility] No significant family history 11/13/2021 Last Documented On 4 10:09AM ; [facility] Review of Systems Includes: Review of Systems from this encounter Systemic: Not feeling tired, no recent weight loss, and no recent weight gain. Head: No headache and no sinus pain. 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 No Glasses/Contacts and no Glaucoma. Otolaryngeal: No hearing loss and no tinnitus. Cardiovascular: No chest pain or discomfort, no palpitations, no Hypertension, and no High Cholesterol. Pulmonary: No daytime asthma symptoms and no chronic cough. No wheezing. Gastrointestinal: No heartburn. Abdominal pain. No Indigestion, no Peptic Ulcer, no GI Stomach Bleed, no Ulcers, and no Acid Reflux. Endocrine: No hot flashes and no muscle weakness. Diabetes. No Hypothyroid and no Hyperthyroid. Hematologic: No easy bleeding, no tendency for easy bruising, and no Anemia. Musculoskeletal: Arthritis. No lower back pain. No soft tissue swelling. Pain localized to one or more joints. Neurological: No dizziness, no convulsions, and no numbness. Psychological: No anxiety, no emotional lability, no depression, and no insomnia. Not crying for no reason. Skin: No dry skin. No Ulcers. Scars. No rash. Allergic and Immunologic: No complaint of seasonal allergic reaction. Mental Status Includes: Mental Status from this encounter Description No anxiety Functional Status Includes: Functional Status from this encounter No Functional Status Recorded Physical Exam Includes: Physical Exam from this encounter Allergies Includes: Active Allergies No Known Allergies Encounters Encounter Provider Location Date Check-In Time Check-Out Time Diagnosis Follow Up Nikolai Allen MD [facility] 08/03/20 9:54AM 11:19AM Insurance Includes: Active Insurance Policies Plan Name Member ID Group # Subscriber Relationship Effect jorje Dates 1 - Medicare Part B [facility] [id number] Leonardo Dozier Self 10/25/2020 - Un known 2 - [employer] [place] [id number] Leonardo Dozier Self 10/25/2020 - Unknown Clinical Notes Includes: Clinical Notes from this encounter * Progress note Date Encounter Last Documented by 08/03/2024 Follow Up Last documented on 08/04/2024; 9:59 AM, Nikolai Allen MD; [facility] Active Problems & Conditions - Joint Pain in the Right Knee Chief Complaint The Chief Complaint is: Left knee pain. Referred Here Referred by self. History of Present Illness Leonardo Dozier is a 74 year old male. - Allergy list reviewed - Problem list reviewed - Medication list reviewed - Pain is occasional (25% of the time) - Patient pain level from 1-10: 3 - History of Physical Therapy - History of Injections - No previous treatment. Current Medication - ALPRAZolam 0.5 MG Oral [...] MG Oral Tablet 10 days, 0 refills Past Medical/Surgical History Reported: Use of CPAP. Immunization History: Recent immunization for flu 06/25/2021 and for pneumococcal pneumonia. Diagnoses: Sleep Apnea Liver Disease. Diverticulitis of colon. Diabetes mellitus. Arthritis Past medical and surgical history non-contributory. Surgical: - Past Surgical History: 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 - Total knee arthroplasty Social History Not a current smoker. Current diet: No recent change in diet. Caffeine use: Caffeine use. Tobacco use: Tobacco non-user and non-smoker. Alcohol: Not using alcohol. Drug Use: Not using drugs. Habits: Exercising regularly. Allergies - No Known Allergies Family History Cancer No significant family history Diabetes mellitus Review Of Systems Systemic: Not feeling tired, no recent weight loss, and no recent weight gain. Head: No headache and no sinus pain. 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 No Glasses/Contacts and no Glaucoma. Otolaryngeal: No hearing loss and no tinnitus. Cardiovascular: No chest pain or discomfort, no palpitations, no Hypertension, and no High Cholesterol. Pulmonary: No daytime asthma symptoms and no chronic cough. No wheezing. Gastrointestinal: No heartburn. Abdominal pain. No Indigestion, no Peptic Ulcer, no GI Stomach Bleed, no Ulcers, and no Acid Reflux. Endocrine: No hot flashes and no muscle weakness. Diabetes. No Hypothyroid and no Hyperthyroid. Hematologic: No easy bleeding, no tendency for easy bruising, and no Anemia. Musculoskeletal: Arthritis. No lower back pain. No soft tissue swelling. Pain localized to one or more joints. Neurological: No dizziness, no convulsions, and no numbness. Psychological: No anxiety, no emotional lability, no depression, and no insomnia. Not crying for no reason. Skin: No dry skin. No Ulcers. Scars. No rash. Allergic and Immunologic: No complaint of seasonal allergic reaction. Physical Findings - Vitals taken 08/03/2024 10:42 am sv Height 76 in Weight 225 lbs Body Mass Index 27.4 kg/m2 Body Surface Area 2.3 m2 PATIENT ORIENTED WITH NORMAL APPEARANCE GAIT: MINIMALLY ANTALGIC BILATERAL HIPS: ROM: FLEXION: 110 DEGREES IR: 20 DEGREES ER: 40 DEGREES RIGHT KNEE: ROM: 0-125 DEGREES NO EFFUSION 1 MM MEDIAL AND LATERAL GAPPING AT DANGLING WELL HEALED INCISION LEFT KNEE: ROM: 5-125 DEGREES MINIMAL EFFUSION POOR PATELLAR MOBILITY SKIN WNL Tests LEFT KNEE XR (3 VIEWS): BONE ON BONE PELVIS XR (1 VIEW): MODERATE BILATERAL HIP DJD Assessment SEVERE LEFT KNEE DJD. SO FAR DOING WELL WITH INJECTIONS. VERY PLEASED WITH RIGHT TKA. DOUBT REFERRED PAIN FROM LEFT HIP CAUSING KNEE PAIN SINCE PATIENT GETS GOOD RELIEF FROM INJECTIONS AT THIS TIME. Previous Tests Imaging: X-Ray: An X-ray was performed bgo 07/29/23. Plan Fall Risk Assessment: This patient has been identified as a fall risk. Balance/gait along with postural blood pressure, vision and home fall hazards have been assessed. Medications have been reviewed, and recommendations made with regard to contributing factors for future falls. Plan of care: Consideration of vitamin D supplementation along with balance and strength training with consideration for formal physical therapy has been discussed with the patient. NON-SURGICAL PLAN: MAINTAIN GOOD SHOES MAINTAIN HEALTHY WEIGHT CAN CALL FOR LEFT KNEE CORTISONE INJECTION PRN PAIN IN INJECTION CLINIC SURGICAL PLAN: CAN CALL TO SCHEDULE LEFT TKA. [facility]ERY [facility] CANDIDATE. PCP CLEARANCE FOLLOW UP: PRN PAIN Notes This dictation was done with voice recognition software and may contain errors and omissions. transcribed by Marco A Cali The patient gave verbal consent in the office today to receive our educational STREAMD text messages as they prepare and recover from surgery. They understand that this is an automated program, that their responses are not monitored by our office, and that they should not use the messaging program to communicate with our office directly. For urgent medical advice, they know to either call our office or 911 for emergencies Care Team - Festus Huitron MD
--- OUTSIDE RECORDS SUMMARY | 2025-02-01 21:44 | XMS_ITS | Data Portability ---
Author Organization [facility] IP Address [address] [place] [address] Care Team Providers Care Fine Arts Instructor Name Role Phone PAMELA COVARRUBIAS Primary Care [...] Address Organization Details Recorded Time Onychomyco sis 324213124 Active 2022 Linda Alvarado [facility] 3 10:04:19 Pain in left foot 9777422875202 07 Active 2022 Linda Alvarado [facility] 3 10:04:22 Pain in right foot 9253201887070 07 Active 2022 Linda Alvarado [facility] 3 10:04:24 Ulcer of right foot 548619014 Active 2022 Linda Alvarado [facility] 3 10:04:36 Cellulitis of right foot 6738330730633 9105 Active 2022 Linda Alvarado [facility] 3 10:07:04 Peripheral neuropathy due to type 2 diabetes mellitus 2818321424976 Active 2022 Kendal Gannon DPM [address] [place] [address], [phone] , [facility] 3 10:20:48 Chronic osteomyeli tis of right foot 3300913624478 104 Active 2022 Kendal Gannon DPM [address] [place] [address], [address] , [facility] 3 13:29:50 Acquired hammer toe of right foot 1292063433235 105 Active 2023 Kendal Gannon DPM [address] [place] [address], [phone] , [facility] 4 09:18:54 Acquired keratoderm a 893921528 Active 2024 Kendal Gannon DPM [address] [place] [address], [phone] , [facility] 5 11:05:32 Cirrhosis of liver 46714519 Active 2024 Kendal Gannon DPM [address] [place] [address], [phone] , [facility] 5 11:29:03 Problem Notes None recorded. Procedures Surgical History Date Name Laterality Status Provider Name and Address Organization Details Recorded Time 01/18/20 25 Nail Debridement (6-10) completed Kendal Gannon DPM [address] [place] [address], [phone], [facility] 01/17/2025 11:28:25 01/18/20 25 DebrideKeratoma CA2-4 completed Kendal Gannon DPM [address] [place] [address], [phone], [facility] 01/17/2025 11:28:41 11/08/19 25 Nail Debridement (6-10) completed Linda Alvarado [facility] 11/08/2024 10:44:41 11/08/19 25 DebrideKeratoma CA2-4 completed Kendal Gannon DPM [address] [place] [address], [phone], [facility] 11/08/2024 11:06:21 05/17/20 24 Nail Debridement (6-10) completed Kendal Gannon DPM [address] [place], [address], [facility] 05/17/2024 09:20:57 09/21/20 23 Ulcer Debridement: all levels completed Linda Alvarado [facility] 09/21/2023 10:06:50 09/21/20 23 Nail Debridement (6-10) completed Linda Alvarado [facility] 09/21/2023 10:04:50 Imaging Results None recorded. Procedure [...] height Body mass index (BMI) Body weight Provider Name and Address Organization Details Last Updated DateTime 07/04/2024 193.04 cm 28 kg/m2 080957.25 g Mikki [facility] 07/04/2024 10:11:38 Date Recorded Body height Body mass index (BMI) Body weight Provider Name and Address Organization Details Last Updated DateTime 07/18/2024 193.04 cm 28 kg/m2 282632.25 g Mikki [facility] 07/18/2024 11:20:06 Date Recorded Body height Body mass index (BMI) Body weight Heart rate Body temperature Pain severity - 0-10 verbal numeric rating [Score] - Reported Systolic blood pressure Diastolic blood pressure Provider Name and Address Organization Details Last Updated DateTime 193.04 cm 27.6 kg/m2 762690. 47 g 71 /min 97.8 [degF] 0 120 mm[Hg] 74 mm[Hg] Rose Marie Wen [facility] 10:19:39 Social History Question Answer Notes LastModified [...] SNOMED-CT Code Diagnosis ICD10 Code Diagnosis Note [id number] Kendal Gannon DPM [place] [address] [place] [address] 09/21/2023 09:15:45 09/21/2023 10:07:28 Onychomycosis 811886795 B35.1 Pain in left foot 933650 3793 55025 M79.672 Pain in right foot 19452 68635 60979 M79.671 Xrays taken, reviewed, and discussed. Ulcer of right foot 8300 58035 L97.512 Culture taken today.Disc ussed importance of offloading , nutrition, and glucose control to optimize healing. Cellulitis of right foot 5327959479 8619440 L03.115 With associated underlying osteomyeli tis.Discus sed condition and treatment options with patient. He has the understand ing of amputation versus 6 weeks PICC versus Dalvance treatment and involved risks and benefits. Will monitor closely. He is okay with amputation if needed. Peripheral neuropathy due to type 2 diabetes mellitus 7831306787 107 E11.42 ~ Patient has Type 2 [...] for any other nail or ancillary studies. [id number] Kendal Gannon DPM [place] [address] [place] [address] 09/28/2023 10:25:37 09/28/2023 11:20:25 Ulcer of right foot 449339340 L97.512 Culture taken 09/21/23 - no resulted yetDiscuss ed importance of offloading , nutrition, and glucose control to optimize healing. Pain in right foot 35294 26575 49122 M79.671 Cellulitis of right foot 9095518778 6831400 L03.115 Resolved with oral antibiotic s.Associat ed with underlying osteomyeli tis.Discus sed condition and treatment options with patient. He has the understand ing of amputation versus 6 weeks PICC versus Dalvance treatment and involved risks and benefits. Discussed possible need to for infectious disease referral if patient wishes to proceed with antibiotic treatment. Peripheral neuropathy due to type 2 diabetes mellitus 9418739678 107 E11.42 ~ Patient has Type 2 [...] for any other nail or ancillary studies. Chronic os teomyelitis of right foot 8094612515 480093 M86.671 Right proximal and distal phalanx on radiograph sMRI performed last week ordered by Dr. Landa - awaiting resultsPat ient currently obtaining multiple opinions on treatment. He has an appointmen t with [facility] in two days and will discuss with them and make his final decision.D iscussed importance of making a decision within the next few days to decrease chances of infection progressin g requiring a more proximal amputation .Patient denies systemic symptoms today.Loca l erythema today on exam without ascending cellulitis .Continue PO antibiotic s per wound care for now.Joierosa t will inform the office of his decision of amputation versus continued wound care and antibiotic treatment after 's appointmen t with wound care. [id number] Kendal Gannon DPM [place] [address] [place] [address] 05/17/2024 08:54:14 05/17/2024 09:32:13 Pain in right foot 7945690110 13313 M79.671 Ulcer of right foot 8300 25281 L97.512 Discussed importance of offloading , nutrition, and glucose control to optimize healing.Co ntinue wound care per [facility] and continue weekly visitsCont inue clindamyci n to complete 10 daysVascul ar: followed by Dr. Reed, no interventi on needed (per patient) Peripheral neuropathy due to type 2 diabetes mellitus 5762435802 107 E11.42 ~ Patient has Type 2 [...] for any other nail or ancillary studies. Onychomycosis 310478842 B35.1 Discussed exam findings, diagnosis, and all [...] nail/s is not considered to be harmful. Pain in left foot 555934 7701 35927 M79.672 Acquired h ammer toe of right foot 6536414351 530148 M20.41 The patient was educated regarding how to mechanical ly stabilize their deformity. The patient was given education about shoe recommenda tions specific to the condition. The patient was educated about custom orthotics and how appropriat e shoes and orthotics can prevent further worsening of the deformity. The patient was educated about how bad shoe habits can worsen the condition. NSAIDs, P.T., injections , and other conservati ve treatments were discussed. Both surgical and non-surgic al treatments were discussed, but conservati ve options were emphasized . [id number] Kendal Gannon DPM [place] [address] [place] [address] 06/06/2024 11:10:10 06/06/2024 11:44:05 Pain in right foot 9112972523 08714 M79.671 Ulcer of right foot 8300 73019 L97.512 Discussed importance of offloading , nutrition, and glucose control to optimize healing.Co no [facility] and continue weekly visitsCurr ently on Linezolid - complete as prescribed Vascular: followed by Dr. Reed, no interventi on needed (per patient)Of fload in surgical shoe.Colla gen powder daily. Per patient wound care clinic had hydrofera blue applicatio n daily - I feel the addition of collagen powder may speed up the healing process. Peripheral neuropathy due to type 2 diabetes mellitus 3163810099 107 E11.42 ~ Patient has Type 2 [...] for any other nail or ancillary studies. [id number] Kendal Gannon DPM [place] [address] [place] [address] 06/20/2024 10:38:51 06/20/2024 11:53:48 Pain in right foot 7598854955 90988 M79.671 Ulcer of right foot 8300 58434 L97.512 Discussed importance of offloading , nutrition, and glucose control to optimize healing.Co [facility] and continue weekly visitsRece syl had one dose of ?Dalvance per ID. MRI 06/13/24: no osteomyeli tis.Vascul ar: followed by Dr. Reed, no interventi on needed (per patient)Of fload in surgical shoe.Colla gen powder daily. Peripheral neuropathy due to type 2 diabetes mellitus 4338698770 107 E11.42 ~ Patient has Type 2 [...] for any other nail or ancillary studies. [id number] [facility] [address] [place] [address] 07/04/2024 10:04:04 07/04/2024 10:50:40 Pain in right foot 3287456103 92381 M79.671 Ulcer of right foot 8300 09426 L97.512 Discussed importance of offloading , nutrition, and glucose control to optimize healing.[facility] and continue weekly visitsMRI 06/13/24: no osteomyeli tis.Vascul ar: followed by Dr. Reed, no interventi on needed (per patient)Of fload in surgical shoe.Colla gen powder daily. Peripheral neuropathy due to type 2 diabetes mellitus 9669406753 107 E11.42 ~ Patient has Type 2 [...] for any other nail or ancillary studies. [id number] RAMON Giron[facility] [address] [place] [address] 07/18/2024 10:45:02 07/18/2024 11:35:00 Ulcer of right foot 880092625 L97.512 Discussed importance of offloading , nutrition, and glucose control to optimize healing.Co [facility] and continue weekly visitsMRI 06/13/24: no osteomyeli tis.Vascul ar: followed by Dr. Reed, no interventi on needed (per patient)Of fload in surgical shoe.Colla gen powder daily. Pain in right foot 70507 00174 72329 M79.671 Peripheral neuropathy due to type 2 diabetes mellitus 1226045040 107 E11.42 ~ Patient has Type 2 [...] for any other nail or ancillary studies. [id number] [facility] [address] [place] [address] 08/01/2024 10:55:18 08/01/2024 11:33:25 Ulcer of right foot 532709539 L97.512 Discussed importance of offloading , nutrition, and glucose control to optimize healing.[facility] and continue weekly visitsMRI 06/13/24: no osteomyeli tis.Vascul ar: followed by Dr. Reed, no interventi on needed (per patient)Of fload in surgical shoe.Padde d bandage daily.Disc ussed flexor right 2nd Pain in right foot 05258 19175 76702 M79.671 Peripheral neuropathy due to type 2 diabetes mellitus 4866531361 107 E11.42 ~ Patient has Type 2 [...] for any other nail or ancillary studies. [id number] Kendal Gannon DPM [place] [address] [place] [address] 11/08/2024 10:21:42 11/08/2024 11:21:34 Pain in right foot 5308830579 09476 M79.671 Peripheral neuropathy due to type 2 diabetes mellitus 9269366233 107 E11.42 ~ Patient has Type 2 [...] other nail or ancillary studies. Pain in left foot 047485 9115 44418 M79.672 Onychomycosis 636136065 B35.1 Discussed exam findings, diagnosis, and all [...] nail/s is not considered to be harmful. Acquired keratoderma 400 608280 L85.1 Discussed in detail the etiology and pathology of keratosisD iscussed in detail treatment options which include shoe accommodat ions, cream applicatio n, and debridemen t.Warned of the potential to return.Dis cussed appropriat e shoe gear in order to reduce the pressure points on the plantar aspect of both feet.Discu ssed appropriat e use of emollient. [id number] Kendal Gannon DPM [place] [address] [place] [address] 01/17/2025 10:06:41 01/17/2025 10:58:28 Onychomycosis 993708470 B35.1 Discussed exam findings, diagnosis, and all [...] neuropathy due to type 2 diabetes mellitus 4027132565 107 E11.42 ~ Patient has Type 2 [...] or ancillary studies. Pain in right foot 16933 47452 44776 M79.671 Pain in left foot 590839 7275 95216 M79.672 Acquired keratoderma 400 306287 L85.1 Discussed in detail the etiology and [...] by Organization Details LastModified Time None Recorded Advance Directives Directive None Recorded Payers Encounter Date Sequence Insurance Name Policy Number Policy Saez Covered Member ID Saez Member ID Guarantor Name 07/04/2024 1 [place] [id number] Leonardo S True [id number] Leonardo True 07/04/2024 2 [employer] [place] [place] [place]PP[place]) [id number] Leonardo S True [id number] Leonardo True 07/18/2024 1 [place] [id number] Leonardo S True [id number] Leonardo True 07/18/2024 2 [employer] [place] (MEDICARE [place]PP[place]) [id number] Leonardo S True [id number] Leonardo True 08/01/2024 1 [place] [id number] Leonardo S True [id number] Leonardo True 08/01/2024 2 [employer] [place] (MEDICARE [place]PP[place]) [id number] Leonardo S True [id number] Leonardo True 11/08/2024 1 [place] [id number] Leonardo S True [id number] Leonardo True 11/08/2024 2 [employer] [place]MEDICARE SUPP[place]) [id number] Leonardo S True [id number] Leonardo True 01/17/2025 1 [place] [id number] Leonardo S True [id number] Leonardo True 01/17/2025 2 [employer] [place] (MEDICARE SUPPLEMENT) [id number] Leonardo S True [id number] Leonardo True Notes Date Note Type Note Provider Name and Address Organization Details Recorded Time 07/04/2024 text/html Patient presents today for right foot ulcer f/u. Kendal Gannon DPM [address] [place] [address], [address] [place] [address], [facility] 07/04/2024 10:51:10 07/18/2024 text/html Patient presents today for a ulcer f/u. patient states he went to wound care today and the doctor debrided the ulcer area. Patient states he does daily dressing changes. Patient states the area looks wet. Patient is a diabetic. Patient states the apwbY0V: 6.4%BS: 155DLS by PCP: 06/17/24 Kendal Gannon DPM [address] [place] [address], [address] [place] [address], [facility] 07/18/2024 11:34:03 08/01/2024 text/html Patient presents today for a ulcer f/u. Patient states he seen wound care today, and the doctor told him he is 99% healed. Patient is a diabetic. Patient states the geymD8C: 6.4%BS: 155DLS by PCP: 06/17/24 Kendal Gannon DPM [address] [place] [address], [address] [place] [address], [facility] 08/01/2024 13:13:56 11/08/2024 text/html Patient presents today for medically necessary diabetic foot care and evaluation. They have complaint of continued diabetes with known pedal complaints. They continue to have elongated, dystrophic, thickened, and discolored nails and soft tissue skin lesions that cause problems with ambulation and with shoe gear. They have no new pedal complaints. The patient reports that their blood sugar was; 272 mg/dL The patient reports that their HbA1c was: 6.5 The patient relates that they are following with PCP for their Diabetes Management. The date last seen was: 10/09/24 Kendal Gannon DPM [address] [place] [address], [address] [place] [address], [facility] 11/08/2024 11:06:56 01/17/2025 text/html Patient presents for diabetic evaluation [...] interfering with shoe gear. Kendal Gannon DPM [address] [place], [address], [facility] 01/17/2025 11:29:29
--- OUTSIDE RECORDS SUMMARY | 2025-02-01 21:44 | XMS_ITS | Data Portability ---
Author Organization [facility] Address [address] [place] [address] Assessment Encounter Date Assessment Date Assessment LastModified by Organization Details LastModified Time 11/24/2017 11/24/2017 RTC in 4-6 weeks. UTD flu. He remembers getting both pneumonia vaccines from his pharmacy. He is going to check on records of these. Not available 11/24/2017 15:59:09 12/22/2017 12/22/2017 RTC in 2-3 months, I will get a CXR then. UTD flu. I spent greater than 25 minutes [id number]-bv-fqki time with my patient today and over half of that time was spent in counseling and coordination of care. [email or web address] Not available 12/22/2017 14:04:45 03/02/2018 03/02/2018 RTC in October 2018 with LFTs, CXR, Mark. Get flu shot in fall. [email or web address] Not available 2018 07:11:13 Plan of Treatment Reminders Order Date Submit Date Provider Last Modified By Organization Details Last Modified Time Details Appointments None recorded. Lab None recorded. Referral None recorded. Procedures None recorded. Surgeries None recorded. Imaging None recorded. Medication Orders Ventolin HFA 90 mcg/actuat ion aerosol inhaler 2017 018 INTERFACE [facility] #[id number], [address], [place], [place], [id number], 8 14:31:36 fexofenadi ne 180 mg tablet 2017 018 INTERFACE [facility] #[id number], [address], [place], [place], [id number], 8 14:31:10 fluticason e propionate 50 mcg/actuat ion nasal spray,susp ension 2017 018 INTERFACE [facility] #63760, [address], [place], [place], [id number], 8 14:31:13 ipratropiu m bromide 42 mcg (0.06 %) nasal spray 2017 018 INTERFACE [facility] #[id number], [address], [place], [place], [id number], 8 14:32:19 fexofenadi ne 180 mg tablet [address] [facility] #72954, [address], [place], [place], [id number], 8 11:51:42 fluticason e propionate 50 mcg/actuat ion nasal spray,susp ension 2017 018 INTERFACE [facility] #55501, [address], [place], [place], [id number], 8 11:51:50 ipratropiu m bromide 42 mcg (0.06 %) nasal spray 2017 018 INTERFACE [facility] #69058, [address], [place], [place], [id number], 8 11:51:47 Neilmed Sinus Rinse Complete with packet [address] [facility] #72223, [address], [place], [place], [id number], 8 11:51:42 amoxicilli n 875 mg-potassi um clavulanat e 125 mg tablet 2017 018 [email or web address] [facility] #94844, [address], [place], [place], [id number], 8 14:04:23 Spiriva Respimat 2.5 mcg/actuat ion solution for inhalation 2017 018 [email or web address] [facility] #81185, [address], [place], [place], [id number], 8 15:58:05 Symbicort 80 mcg-4.5 mcg/actuat ion HFA aerosol inhaler 2017 018 [facility] #05168, [address], [place], [place], [id number], 8 15:58:05 fluticason e propionate 50 mcg/actuat ion nasal spray,susp ension 2017 018 [facility]FACE [facility], [address], [place], [place], [id number], 8 15:58:57 ipratropiu m bromide 42 mcg (0.06 %) nasal spray 2017 [facility]FACE [facility], [address], [place], [place], [id number], 8 15:58:54 Patient TargetsNo targets recorded. 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 Results Created Date Observation Date Name Description Value Unit Range Abnormal Flag Note LastModifiedBy Organization Detail LastModifiedTime 12/20/19 18 12/21/2017 eb ia, quant , plasm a ammonia 45 umol/ L < or = 47 normal TEST PERFO RMED AT: [facility] [address] [place] [address] RACHEL JOHNSON M.D. Not Available [facility] [address] [place] [address], [address], 12/21/2017 08:21:02 12/20/19 18 12/20/2017 CBC w/ auto diff white blood cells 7.6 K/uL 3.8-10 .8 normal Not Available [facility] [address] [place] [address], [address], 12/20/2017 16:02:32 12/20/19 18 12/20/2017 CBC w/ auto diff red blood cells 4.81 M/uL 4.20-5 .80 normal Not Available [facility] [address] [place] [address], [address], 12/20/2017 16:02:32 12/20/19 18 12/20/2017 CBC w/ auto diff hemoglobin 15.2 g/dL 14.0-1 8.0 normal Not Available [facility] [address] [place] [address], [address], 12/20/2017 16:02:32 12/20/19 18 12/20/2017 CBC w/ auto diff hematocrit 43.8 % 40.0-5 2.0 normal Not Available [facility] [address] [place] [address], [address], 12/20/2017 16:02:32 12/20/19 18 12/20/2017 CBC w/ auto diff MCV 91 fL 80-100 normal Not Available [facility] [address] [place] [address], [address], 12/20/2017 16:02:32 12/20/19 18 12/20/2017 CBC w/ auto diff MCH 32 pg 26-35 normal Not Available [facility] [address] [place] [address], [address], 12/20/2017 16:02:32 12/20/19 18 12/20/2017 CBC w/ auto diff MCHC 35 g/dL 32-36 normal Not Available [facility] [address] [place] [address], [address], 12/20/2017 16:02:32 12/20/19 18 12/20/2017 CBC w/ auto diff RDW 13.2 % 11.0-1 5.0 normal Not Available [facility] [address] [place] [address], [address], 12/20/2017 16:02:32 12/20/19 18 12/20/2017 CBC w/ auto diff MPV 7.4 fL 6.2-10 .5 normal Not Available [facility] [address] [place] [address], [address], 12/20/2017 16:02:32 12/20/19 18 12/20/2017 CBC w/ auto diff platelet count 229 K/uL 130-40 0 normal Not Available [facility] [address] [place] [address], [address], 12/20/2017 16:02:32 12/20/19 18 12/20/2017 CBC w/ auto diff neutrophil,a bsolute 4.3 K/uL 1.6-8. 4 normal Not Available [facility] [address] [place] [address], [address], 12/20/2017 16:02:32 12/20/19 18 12/20/2017 CBC w/ auto diff lymphocyte,a bsolute 2.5 K/uL 0.4-5. 1 normal Not Available [facility] [address] [place] [address], [address], 12/20/2017 16:02:32 12/20/19 18 12/20/2017 CBC w/ auto diff monocyte,abs olute 0.5 K/uL 0.0-1. 2 normal Not Available [facility] [address] [place] [address], [address], 12/20/2017 16:02:32 12/20/19 18 12/20/2017 CBC w/ auto diff eosinophil,a bsolute 0.2 K/uL 0.0-0. 8 normal Not Available [facility] [address] [place] [address], [address], 12/20/2017 16:02:32 12/20/19 18 12/20/2017 CBC w/ auto diff basophil,abs olute 0.0 K/uL 0.0-0. 3 normal Not Available [facility] [address] [place] [address], [address], 12/20/2017 16:02:32 12/20/19 18 12/20/2017 CBC w/ auto diff % neutrophils 57.1 % 42.0-7 8.0 normal Not Available [facility] [address] [place] [address], [address], 12/20/2017 16:02:32 12/20/19 18 12/20/2017 CBC w/ auto diff % lymphocytes 33.1 % 11.0-4 7.0 normal Not Available [facility] [address] [place] [address], [address], 12/20/2017 16:02:32 12/20/19 18 12/20/2017 CBC w/ auto diff % monocytes 6.8 % 0.0-11 .0 normal Not Available [facility] [address] [place] [address], [address], 12/20/2017 16:02:32 12/20/19 18 12/20/2017 CBC w/ auto diff % eosinophils 2.4 % 0.0-7. 0 normal Not Available [facility] [address] [place] [address], [address], 12/20/2017 16:02:32 12/20/19 18 12/20/2017 CBC w/ auto diff % basophils 0.6 % 0.0-3. 0 normal Not Available [facility] [address] [place] [address], [address], 12/20/2017 16:02:32 12/20/19 18 12/20/2017 CBC w/ auto diff nucleated red cells 0.2 % 0.0-0. 9 normal Not Available [facility] [address] [place] [address], [address], 12/20/2017 16:02:32 12/20/19 18 12/20/2017 CBC w/ auto diff nucleated RBCs, absolute 0.01 K/uL not estab. normal Not Available [facility] [address] [place] [address], [address], 12/20/2017 16:02:32 12/20/19 18 12/20/2017 CMP, serum or plasm a glucose 188 mg/dL 74-100 high Not Available [facility] [address] [place] [address], [address], 12/20/2017 11:50:15 12/20/19 18 12/20/2017 CMP, serum or plasm a blood urea nitrogen 11 mg/dL 6-20 normal Not Available [facility] [address] [place] [address], [address], 12/20/2017 11:50:15 12/20/19 18 12/20/2017 CMP, serum or plasm a creatinine 0.76 mg/dL 0.70-1 .25 normal Not Available [facility] [address] [place] [address], [address], 12/20/2017 11:50:15 12/20/19 18 12/20/2017 CMP, serum or plasm a BUN/creatini ne ratio 14 (calc ) 10-20 normal Not Available [facility] [address] [place] [address], [address], 12/20/2017 11:50:15 12/20/19 18 12/20/2017 CMP, serum or plasm a GFR 110 >= 60 normal Not Available [facility] [address] [place], [address], 12/20/2017 11:50:15 12/20/19 18 12/20/2017 CMP, serum or plasm a GFR non- 95 >= 60 normal NOT E NEW calcu latio n for GFR is based on the Natio nal Kidne y Found ation CKD-E PI equat ion and allow s for repor ting GFR value s great er than 60 mL/mi n/1.7 3 m2. This calcu latio n has not been valid ated for patie nts less than 18 yrs., pregn ant women and Hispa nics. Chron ic kidne y disea se is defin ed as kidne y damag e or GFR less than 60 mL/mi n/1.7 3 m2 for 3 month s or longe r. . Not Available [facility] [address] [place] [address], [address], 12/20/2017 11:50:15 12/20/19 18 12/20/2017 CMP, serum or plasm a sodium 141 mmol/ L 136-14 5 normal Not Available [facility] [address] [place], [address], 12/20/2017 11:50:15 12/20/19 18 12/20/2017 CMP, serum or plasm a potassium 4.3 mmol/ L 3.4-5. 0 normal Not Available [facility] [address] [place] [address], [address], 12/20/2017 11:50:15 12/20/19 18 12/20/2017 CMP, serum or plasm a chloride 101 mmol/ L 98-107 normal Not Available [facility] [address] [place] [address], [address], 12/20/2017 11:50:15 12/20/19 18 12/20/2017 CMP, serum or plasm a carbon dioxide 23 mmol/ L 20-32 normal Not Available [facility] [address] [place] [address], [address], 12/20/2017 11:50:15 12/20/19 18 12/20/2017 CMP, serum or plasm a anion gap 17 (calc ) 7-25 normal Not Available [facility] [address] [place] [address], [address], 12/20/2017 11:50:15 12/20/19 18 12/20/2017 CMP, serum or plasm a calcium 9.0 mg/dL 8.6-10 .2 normal Not Available [facility] [address] [place] [address], [address], 12/20/2017 11:50:15 12/20/19 18 12/20/2017 CMP, serum or plasm a total protein 7.7 g/dL 6.4-8. 3 normal Not Available [facility] [address] [place] [address], [address], 12/20/2017 11:50:15 12/20/19 18 12/20/2017 CMP, serum or plasm a albumin 4.4 g/dL 3.5-5. 2 normal Not Available [facility] [address] [place] [address], [address], 12/20/2017 11:50:15 12/20/19 18 12/20/2017 CMP, serum or plasm a globulin 3.3 g/dL_ (calc ) 1.5-4. 5 normal Not Available [facility] [address] [place] [address], [address], 12/20/2017 11:50:15 12/20/19 18 12/20/2017 CMP, serum or plasm a albumin/glob ulin ratio 1.3 (calc ) 1.1-2. 5 normal Not Available [facility] [address] [place] [address], [address], 12/20/2017 11:50:15 12/20/19 18 12/20/2017 CMP, serum or plasm a bilirubin, total 0.5 mg/dL 0.1-1. 2 normal Not Available [facility] [address] [place] [address], [address], 12/20/2017 11:50:15 12/20/19 18 12/20/2017 CMP, serum or plasm a alkaline phosphatase 46 U/L 40-130 normal Not Available [facility] [address] [place] [address], [address], 12/20/2017 11:50:15 12/20/19 18 12/20/2017 CMP, serum or plasm a AST 37 U/L 0-40 normal Not Available [facility] [address] [place] [address], [address], 12/20/2017 11:50:15 12/20/19 18 12/20/2017 CMP, serum or plasm a ALT 55 U/L 0-41 high Not Available [facility] [address] [place] [address], [address], 12/20/2017 11:50:15 12/20/19 18 12/20/2017 lipid panel , serum HDL cholesterol 56 mg/dL 56-242 normal Not Available [facility] [address] [place] [address], [address], 12/20/2017 11:46:34 12/20/19 18 12/20/2017 lipid panel , serum triglyceride s 170 mg/dL 0-149 high TRIGL YCERI DE RANGE S DORON L: < 150 BORDE RLINE HIGH: 150 - 199 HIGH: 200 - 499 VERY HIGH: > OR = 500 Not Available [facility] [address] [place] [address], [address], 12/20/2017 11:46:34 12/20/19 18 12/20/2017 lipid panel , serum cholesterol 198 mg/dL 0-199 normal FREEDOM STERO L (TOTA L) RANGE S EDGARDO ABLE: < 200 BORDE RLINE : 200 - 239 HIGHE R RISK: > 239 Not Available [facility] [address] [place] [address], [address], 12/20/2017 11:46:34 12/20/19 18 12/20/2017 lipid panel , serum LDL cholesterol 108 mg/dL _(devi c) 0-99 high LDL FREEDOM STERO L RANGE S OPTIM AL: < 100 NEAR/ ABOVE OPTIM AL: 100 - 129 BORDE RLINE HIGH: 130 - 159 HIGH: 160 - 189 VERY HIGH: > OR = 190 Not Available [facility] [address] [place] [address], [address], 12/20/2017 11:46:34 12/20/19 18 12/20/2017 TSH, serum or plasm a TSH 3.510 uIU/m L 0.290- 5.500 normal Not Available [facility] [address] [place] [address], [address], 12/20/2017 11:39:14 12/20/19 18 12/20/2017 T4, free, serum T4,free 0.93 NG/dL 0.93-1 .70 normal Not Available [facility] [address] [place] [address], [address], 12/20/2017 11:37:37 12/20/19 18 12/20/2017 PT/IN R prothrombin time 11.4 secon ds 9.4-11 .4 normal Not Available [facility] [address] [place] [address], [address], 12/20/2017 11:30:37 12/20/19 18 12/20/2017 PT/IN R INR 1.1 2.0-3. 0 low INR OF 2.0 TO 3.0 RECOM PRAVEENA D FOR: PROPH YLAXI S AND TREAT MENT OF VENOU S THROM BOSIS TREAT MENT OF PULMO NARY EMBOL ISM PREVE NTION OF SYSTE JANEY EMBOL ISM TISSU E HEART VALVE S, VALVU LAR HEART DISEA SE ACUTE MYOCA RDIAL INFAR CTION , ATRIA L FIBRI LLATI ON INR OF 2.5 TO 3.5 RECOM PRAVEENA D FOR: RECUR RENT SYSTE JANEY EMBOL ISM MECHA NICAL PROST HETIC VALVE S Not Available [facility] [address] [place] [address], [address], 12/20/2017 11:30:37 04/19/20 18 04/21/2018 eb ia, quant , plasm a ammonia 43 umol/ L < or = 47 normal TEST PERFO RMED AT: [facility] [address] [facility] [place] [address] RACHEL JOHNSON M.D. Not Available [facility] [address] [place] [address], [address], 04/21/2018 08:20:36 04/19/20 18 04/19/2018 CMP, serum or plasm a glucose 256 mg/dL 74-100 high Not Available [facility] [address] [place] [address], [address], 04/19/2018 13:38:40 04/19/20 18 04/19/2018 CMP, serum or plasm a blood urea nitrogen 12 mg/dL 6-20 normal Not Available [facility] [address] [place] [address], [address], 04/19/2018 13:38:40 04/19/20 18 04/19/2018 CMP, serum or plasm a creatinine 0.74 mg/dL 0.70-1 .25 normal Not Available [facility] [address] [place] [address], [address], 04/19/2018 13:38:40 04/19/20 18 04/19/2018 CMP, serum or plasm a BUN/creatini ne ratio 16 (calc ) 10-20 normal Not Available [facility] [address] [place] [address], [address], 04/19/2018 13:38:40 04/19/20 18 04/19/2018 CMP, serum or plasm a sodium 136 mmol/ L 136-14 5 normal Not Available [facility] [address] [place] [address], [address], 04/19/2018 13:38:40 04/19/20 18 04/19/2018 CMP, serum or plasm a potassium 4.0 mmol/ L 3.4-5. 0 normal Not Available [facility] [address] [place] [address], [address], 04/19/2018 13:38:40 04/19/20 18 04/19/2018 CMP, serum or plasm a chloride 96 mmol/ L 98-107 low Not Available [facility] [address] [place] [address], [address], 04/19/2018 13:38:40 04/19/20 18 04/19/2018 CMP, serum or plasm a carbon dioxide 23 mmol/ L 20-32 normal Not Available [facility] [address] [place] [address], [address], 04/19/2018 13:38:40 04/19/20 18 04/19/2018 CMP, serum or plasm a anion gap 17 (calc ) 7-25 normal Not Available [facility] [address] [place] [address], [address], 04/19/2018 13:38:40 04/19/20 18 04/19/2018 CMP, serum or plasm a calcium 9.2 mg/dL 8.6-10 .2 normal Not Available [facility] [address] [place] [address], [address], 04/19/2018 13:38:40 04/19/20 18 04/19/2018 CMP, serum or plasm a total protein 7.4 g/dL 6.4-8. 3 normal Not Available [facility] [address] [place], [address], 04/19/2018 13:38:40 04/19/20 18 04/19/2018 CMP, serum or plasm a albumin 4.4 g/dL 3.5-5. 2 normal Not Available [facility] [address] [place] [address], [address], 04/19/2018 13:38:40 04/19/20 18 04/19/2018 CMP, serum or plasm a globulin 3.0 g/dL_ (calc ) 1.5-4. 5 normal Not Available [facility] [address] [place] [address], [address], 04/19/2018 13:38:40 04/19/20 18 04/19/2018 CMP, serum or plasm a albumin/glob ulin ratio 1.5 (calc ) 1.1-2. 5 normal Not Available [facility] [address] [place] [address], [address], 04/19/2018 13:38:40 04/19/20 18 04/19/2018 CMP, serum or plasm a bilirubin, total 0.4 mg/dL 0.1-1. 2 normal Not Available [facility] [address] [place] [address], [address], 04/19/2018 13:38:40 04/19/20 18 04/19/2018 CMP, serum or plasm a alkaline phosphatase 55 U/L 40-130 normal Not Available [facility] [address] [place] [address], [address], 04/19/2018 13:38:40 04/19/20 18 04/19/2018 CMP, serum or plasm a AST 42 U/L 0-40 high Not Available [facility] [address] [place] [address], [address], 04/19/2018 13:38:40 04/19/20 18 04/19/2018 CMP, serum or plasm a ALT 71 U/L 0-41 high Not Available [facility] [address] [place], [address], 04/19/2018 13:38:40 04/19/20 18 04/19/2018 CMP, serum or plasm a GFR 111 >= 60 normal Not Available [facility] [address] [place], [address], 04/19/2018 13:38:40 04/19/20 18 04/19/2018 CMP, serum or plasm a GFR non- 95 >= 60 normal NOT E Calcu latio n for GFR is based on the Natio nal Kidne y Found ation CKD-E PI equat ion and allow s for repor ting GFR value s great er than 60 mL/mi n/1.7 3 m2. This calcu latio n has not been valid ated for patie nts less than 18 yrs., pregn ant women and Hispa nics. Chron ic kidne y disea se is defin ed as kidne y damag e or GFR less than 60 mL/mi n/1.7 3 m2 for 3 month s or longe r. . Not Available [facility] [address] [place], [address], 04/19/2018 13:38:40 04/19/20 18 04/19/2018 PT/IN R prothrombin time 9.9 secon ds 9.2-11 .2 normal Not Available [facility] [address] [place], [address], 04/19/2018 13:28:51 04/19/20 18 04/19/2018 PT/IN R INR 1.0 2.0-3. 0 low INR OF 2.0 TO 3.0 RECOM PRAVEENA D FOR: PROPH YLAXI S AND TREAT MENT OF VENOU S THROM BOSIS TREAT MENT OF PULMO NARY EMBOL ISM PREVE NTION OF SYSTE JANEY EMBOL ISM TISSU E HEART VALVE S, VALVU LAR HEART DISEA SE ACUTE MYOCA RDIAL INFAR CTION , ATRIA L FIBRI LLATI ON INR OF 2.5 TO 3.5 RECOM PRAVEENA D FOR: RECUR RENT SYSTE JANEY EMBOL ISM MECHA NICAL PROST HETIC VALVE S Not Available [facility] [address] [place] [address], [address], 04/19/2018 13:28:51 04/19/20 18 04/19/2018 CBC w/ auto diff white blood cells 7.6 K/uL 3.8-10 .8 normal Not Available [facility] [address] [place] [address], [address], 04/19/2018 13:03:02 04/19/20 18 04/19/2018 CBC w/ auto diff red blood cells 4.79 M/uL 4.20-5 .80 normal Not Available [facility] [address] [place] [address], [address], 04/19/2018 13:03:02 04/19/20 18 04/19/2018 CBC w/ auto diff hemoglobin 15.3 g/dL 14.0-1 8.0 normal Not Available [facility] [address] [place] [address], [address], 04/19/2018 13:03:02 04/19/20 18 04/19/2018 CBC w/ auto diff hematocrit 43.5 % 40.0-5 2.0 normal Not Available [facility] [address] [place] [address], [address], 04/19/2018 13:03:02 04/19/20 18 04/19/2018 CBC w/ auto diff MCV 91 fL 80-100 normal Not Available [facility] [address] [place] [address], [address], 04/19/2018 13:03:02 04/19/20 18 04/19/2018 CBC w/ auto diff MCH 32 pg 26-35 normal Not Available [facility] [address] [place] [address], [address], 04/19/2018 13:03:02 04/19/20 18 04/19/2018 CBC w/ auto diff MCHC 35 g/dL 32-36 normal Not Available [facility] [address] [place] [address], [address], 04/19/2018 13:03:02 04/19/20 18 04/19/2018 CBC w/ auto diff RDW 12.8 % 11.0-1 5.0 normal Not Available [facility] [address] [place] [address], [address], 04/19/2018 13:03:02 04/19/20 18 04/19/2018 CBC w/ auto diff MPV 7.6 fL 6.2-10 .5 normal Not Available [facility] [address] [place] [address], [address], 04/19/2018 13:03:02 04/19/20 18 04/19/2018 CBC w/ auto diff platelet count 204 K/uL 130-40 0 normal Not Available [facility] [address] [place] [address], [address], 04/19/2018 13:03:02 04/19/20 18 04/19/2018 CBC w/ auto diff neutrophil,a bsolute 4.2 K/uL 1.6-8. 4 normal Not Available [facility] [address] [place] [address], [address], 04/19/2018 13:03:02 04/19/20 18 04/19/2018 CBC w/ auto diff lymphocyte,a bsolute 2.5 K/uL 0.4-5. 1 normal Not Available [facility] [address] [place] [address], [address], 04/19/2018 13:03:02 04/19/20 18 04/19/2018 CBC w/ auto diff monocyte,abs olute 0.6 K/uL 0.0-1. 2 normal Not Available [facility] [address] [place] [address], [address], 04/19/2018 13:03:02 04/19/20 18 04/19/2018 CBC w/ auto diff eosinophil,a bsolute 0.3 K/uL 0.0-0. 8 normal Not Available [facility] [address] [place], [place] [address], [address], 04/19/2018 13:03:02 04/19/20 18 04/19/2018 CBC w/ auto diff basophil,abs olute 0.0 K/uL 0.0-0. 3 normal Not Available [facility] [address] [place] [address], [address], 04/19/2018 13:03:02 04/19/20 18 04/19/2018 CBC w/ auto diff % neutrophils 55.0 % 42.0-7 8.0 normal Not Available [facility] [address] [place] [address], [address], 04/19/2018 13:03:02 04/19/20 18 04/19/2018 CBC w/ auto diff % lymphocytes 33.3 % 11.0-4 7.0 normal Not Available [facility] [address] [place] [address], [address], 04/19/2018 13:03:02 04/19/20 18 04/19/2018 CBC w/ auto diff % monocytes 8.0 % 0.0-11 .0 normal Not Available [facility] [address] [place] [address], [address], 04/19/2018 13:03:02 04/19/20 18 04/19/2018 CBC w/ auto diff % eosinophils 3.3 % 0.0-7. 0 normal Not Available [facility] [address] [place] [address], [address], 04/19/2018 13:03:02 04/19/20 18 04/19/2018 CBC w/ auto diff % basophils 0.4 % 0.0-3. 0 normal Not Available [facility] [address] [place] [address], [address], 04/19/2018 13:03:02 04/19/20 18 04/19/2018 CBC w/ auto diff nucleated red cells 0.0 % 0.0-0. 9 normal Not Available [facility] [address] [place] [address], [address], 04/19/2018 13:03:02 04/19/20 18 04/19/2018 CBC w/ auto diff nucleated RBCs, absolute 0.00 K/uL not estab. normal Not Available [facility] [address] [place] [address], [address], 04/19/2018 13:03:02 07/28/20 18 07/28/2018 parti al throm bopla stin time, activ ated (aptt ), plasm a (post -hepa rin) PTT (APTT) 25.3 secon ds 24.2-3 2.2 normal Not Available [facility] [address] [place] [address], [address], 07/28/2018 17:23:02 07/28/20 18 07/28/2018 PT/IN R prothrombin time 10.7 secon ds 9.1-11 .3 normal Not Available [facility] [address] [place] [address], [address], 07/28/2018 17:23:01 07/28/20 18 07/28/2018 PT/IN R INR 1.1 2.0-3. 0 low INR OF 2.0 TO 3.0 RECOM PRAVEENA D FOR: PROPH YLAXI S AND TREAT MENT OF VENOU S THROM BOSIS TREAT MENT OF PULMO NARY EMBOL ISM PREVE NTION OF SYSTE JANEY EMBOL ISM TISSU E HEART VALVE S, VALVU LAR HEART DISEA SE ACUTE MYOCA RDIAL INFAR CTION , ATRIA L FIBRI LLATI ON INR OF 2.5 TO 3.5 RECOM PRAVEENA D FOR: RECUR RENT SYSTE JANEY EMBOL ISM MECHA NICAL PROST HETIC VALVE S Not Available [facility] [address] [place] [address], [address], 07/28/2018 17:23:01 07/28/20 18 07/28/2018 CBC w/ auto diff white blood cells 10.0 K/uL 3.8-10 .8 normal Not Available [facility] [address] [place], [address], 07/28/2018 17:17:12 07/28/20 18 07/28/2018 CBC w/ auto diff red blood cells 4.57 M/uL 4.20-5 .80 normal Not Available [facility] [address] [place] [address], [address], 07/28/2018 17:17:12 07/28/20 18 07/28/2018 CBC w/ auto diff hemoglobin 14.7 g/dL 14.0-1 8.0 normal Not Available [facility] [address] [place] [address], [address], 07/28/2018 17:17:12 07/28/20 18 07/28/2018 CBC w/ auto diff hematocrit 41.7 % 40.0-5 2.0 normal Not Available [facility] [address] [place] [address], [address], 07/28/2018 17:17:12 07/28/20 18 07/28/2018 CBC w/ auto diff MCV 91 fL 80-100 normal Not Available [facility] [address] [place] [address], [address], 07/28/2018 17:17:12 07/28/20 18 07/28/2018 CBC w/ auto diff MCH 32 pg 26-35 normal Not Available [facility] [address] [place] [address], [address], 07/28/2018 17:17:12 07/28/20 18 07/28/2018 CBC w/ auto diff MCHC 35 g/dL 32-36 normal Not Available [facility] [address] [place] [address], [address], 07/28/2018 17:17:12 07/28/20 18 07/28/2018 CBC w/ auto diff RDW 12.9 % 11.0-1 5.0 normal Not Available [facility] [address] [place] [address], [address], 07/28/2018 17:17:12 07/28/20 18 07/28/2018 CBC w/ auto diff MPV 7.2 fL 6.2-10 .5 normal Not Available [facility] [address] [place] [address], [address], 07/28/2018 17:17:12 07/28/20 18 07/28/2018 CBC w/ auto diff platelet count 238 K/uL 130-40 0 normal Not Available [facility] [address] [place] [address], [address], 07/28/2018 17:17:12 07/28/20 18 07/28/2018 CBC w/ auto diff neutrophil,a bsolute 6.5 K/uL 1.6-8. 4 normal Not Available [facility] [address] [place] [address], [address], 07/28/2018 17:17:12 07/28/20 18 07/28/2018 CBC w/ auto diff lymphocyte,a bsolute 2.7 K/uL 0.4-5. 1 normal Not Available [facility] [address] [place] [address], [address], 07/28/2018 17:17:12 07/28/20 18 07/28/2018 CBC w/ auto diff monocyte,abs olute 0.7 K/uL 0.0-1. 2 normal Not Available [facility] [address] [place] [address], [address], 07/28/2018 17:17:12 07/28/20 18 07/28/2018 CBC w/ auto diff eosinophil,a bsolute 0.1 K/uL 0.0-0. 8 normal Not Available [facility] [address] [place] [address], [address], 07/28/2018 17:17:12 07/28/20 18 07/28/2018 CBC w/ auto diff basophil,abs olute 0.1 K/uL 0.0-0. 3 normal Not Available [facility] [address] [place] [address], [address], 07/28/2018 17:17:12 07/28/20 18 07/28/2018 CBC w/ auto diff % neutrophils 65.0 % 42.0-7 8.0 normal Not Available [facility] [address] [place] [address], [address], 07/28/2018 17:17:12 07/28/20 18 07/28/2018 CBC w/ auto diff % lymphocytes 26.6 % 11.0-4 7.0 normal Not Available [facility] [address] [place] [address], [address], 07/28/2018 17:17:12 07/28/20 18 07/28/2018 CBC w/ auto diff % monocytes 6.7 % 0.0-11 .0 normal Not Available [facility] [address] [place] [address], [address], 07/28/2018 17:17:12 07/28/20 18 07/28/2018 CBC w/ auto diff % eosinophils 1.1 % 0.0-7. 0 normal Not Available [facility] [address] [place] [address], [address], 07/28/2018 17:17:12 07/28/20 18 07/28/2018 CBC w/ auto diff % basophils 0.6 % 0.0-3. 0 normal Not Available [facility] [address] [place] [address], [address], 07/28/2018 17:17:12 07/28/20 18 07/28/2018 CBC w/ auto diff nucleated red cells 0.0 % 0.0-0. 9 normal Not Available [facility] [address] [place] [address], [address], 07/28/2018 17:17:12 07/28/20 18 07/28/2018 CBC w/ auto diff nucleated RBCs, absolute 0.00 K/uL not estab. normal Not Available [facility] [address] [place] [address], [address], 07/28/2018 17:17:12 07/28/20 18 07/28/2018 CMP, serum or plasm a glucose 247 mg/dL 74-100 high Not Available [facility] [address] [place] [address], [address], 07/28/2018 17:09:26 07/28/20 18 07/28/2018 CMP, serum or plasm a blood urea nitrogen 15 mg/dL 6-20 normal Not Available [facility] [address] [place] [address], [address], 07/28/2018 17:09:26 07/28/20 18 07/28/2018 CMP, serum or plasm a creatinine 0.79 mg/dL 0.70-1 .25 normal Not Available [facility] [address] [place] [address], [address], 07/28/2018 17:09:26 07/28/20 18 07/28/2018 CMP, serum or plasm a BUN/creatini ne ratio 19 (calc ) 10-20 normal Not Available [facility] [address] [place] [address], [address], 07/28/2018 17:09:26 07/28/20 18 07/28/2018 CMP, serum or plasm a sodium 138 mmol/ L 136-14 5 normal Not Available [facility] [address] [place] [address], [address], 07/28/2018 17:09:26 07/28/20 18 07/28/2018 CMP, serum or plasm a potassium 4.3 mmol/ L 3.4-5. 0 normal Not Available [facility] [address] [place] [address], [address], 07/28/2018 17:09:26 07/28/20 18 07/28/2018 CMP, serum or plasm a chloride 100 mmol/ L 98-107 normal Not Available [facility] [address] [place] [address], [address], 07/28/2018 17:09:26 07/28/20 18 07/28/2018 CMP, serum or plasm a carbon dioxide 23 mmol/ L 20-32 normal Not Available [facility] [address] [place] [address], [address], 07/28/2018 17:09:26 07/28/20 18 07/28/2018 CMP, serum or plasm a anion gap 15 (calc ) 7-25 normal Not Available [facility] [address] [place] [address], [address], 07/28/2018 17:09:26 07/28/20 18 07/28/2018 CMP, serum or plasm a calcium 9.1 mg/dL 8.6-10 .2 normal Not Available [facility] [address] [place] [address], [address], 07/28/2018 17:09:26 07/28/20 18 07/28/2018 CMP, serum or plasm a total protein 7.5 g/dL 6.4-8. 3 normal Not Available [facility] [address] [place] [address], [address], 07/28/2018 17:09:26 07/28/20 18 07/28/2018 CMP, serum or plasm a albumin 4.3 g/dL 3.5-5. 2 normal Not Available [facility] [address] [place] [address], [address], 07/28/2018 17:09:26 07/28/20 18 07/28/2018 CMP, serum or plasm a globulin 3.2 g/dL_ (calc ) 1.5-4. 5 normal Not Available [facility] [address] [place] [address], [address], 07/28/2018 17:09:26 07/28/20 18 07/28/2018 CMP, serum or plasm a albumin/glob ulin ratio 1.3 (calc ) 1.1-2. 5 normal Not Available [facility] [address] [place] [address], [address], 07/28/2018 17:09:26 07/28/20 18 07/28/2018 CMP, serum or plasm a bilirubin, total 0.4 mg/dL 0.1-1. 2 normal Not Available [facility] [address] [place] [address], [address], 07/28/2018 17:09:26 07/28/20 18 07/28/2018 CMP, serum or plasm a alkaline phosphatase 60 U/L 40-130 normal Not Available [facility] [address] [place] [address], [address], 07/28/2018 17:09:26 07/28/20 18 07/28/2018 CMP, serum or plasm a AST 33 U/L 0-40 normal Not Available [facility] [address] [place] [address], [address], 07/28/2018 17:09:26 07/28/20 18 07/28/2018 CMP, serum or plasm a ALT 52 U/L 0-41 high Not Available [facility] [address] [place] [address], [address], 07/28/2018 17:09:26 07/28/20 18 07/28/2018 CMP, serum or plasm a GFR 107 >= 60 normal Not Available [facility] [address] [place], [address], 07/28/2018 17:09:26 07/28/20 18 07/28/2018 CMP, serum or plasm a GFR non- 93 >= 60 normal NOT E Calcu latio n for GFR is based on the Natio nal Kidne y Found ation CKD-E PI equat ion and allow s for repor ting GFR value s great er than 60 mL/mi n/1.7 3 m2. This calcu latio n has not been valid ated for patie nts less than 18 yrs., pregn ant women and Hispa nics. Chron ic kidne y disea se is defin ed as kidne y damag e or GFR less than 60 mL/mi n/1.7 3 m2 for 3 month s or longe r. . Not Available [facility] [address] [place], [address], 07/28/2018 17:09:26 02/01/20 19 01/31/2019 micro album in/cr eatin ine, mass ratio , urine microalbumin , random 41 mg/L 0-19 high Not Available [facility] [address] [place], [address], 01/31/2019 16:23:31 02/01/20 19 01/31/2019 micro album in/cr eatin ine, mass ratio , urine creatinine,u r,random 235 mg/dL normal NO DORON L RANGE ESTAB LISHE D FOR RANDO M URINE . Not Available [facility] [address] [place], [address], 01/31/2019 16:23:31 02/01/20 19 01/31/2019 micro album in/cr eatin ine, mass ratio , urine MA/creatinin e ratio 17 mcg/m g 0-29 normal Doron l MA/Cr eatin ine ratio is defin ed as less than 30 mcg/m g and incre ased urina ry album in excre tion is defin ed as great er than or equal to 30 mcg/m g. Becau se of varia bilit y in urina ry album in excre tion, 2 of 3 speci mens colle cted withi n a 3 to 6 month perio d shoul d be abnor mal befor e consi jed g a patie nt to have album inuri a. Exerc ise withi n 24 hrs., infec tion, fever , CHF, marke d hyper glyce burak, menst ruati on, and marke d hyper tensi on february eleva te MA/CR indep enden tly of [facility] y perez e. REFER ENCE: [employer]. [employer] [facility] [place], 2016 Vol 39, Suppl 1. Not Available [facility] [address] [place] [address], [address], 01/31/2019 16:23:31 02/01/2001/31/2019 lipid panel , serum HDL cholesterol 50 mg/dL 56-242 low Not Available [facility] [address] [place] [address], [address], 01/31/2019 14:14:02/01/2001/31/2019 lipid panel , serum triglyceride s 116 mg/dL 0-149 normal TRIGL YCERI DE RANGE S DORON L: < 150 BORDE RLINE HIGH: 150 - 199 HIGH: 200 - 499 VERY HIGH: > OR = 500 Not Available [facility] [address] [place] [address], [address], 01/31/2019 14:14:02/01/20 19 01/31/2019 lipid panel , serum cholesterol 158 mg/dL 0-199 normal FREEDOM STERO L (TOTA L) RANGE S EDGARDO ABLE: < 200 BORDE RLINE : 200 - 239 HIGHE R RISK: > 239 Not Available [facility] [address] [place] [address], [address], 01/31/2019 14:14:02/01/2001/31/2019 lipid panel , serum LDL cholesterol 85 mg/dL _(devi c) 0-99 normal LDL FREEDOM STERO L RANGE S OPTIM AL: < 100 NEAR/ ABOVE OPTIM AL: 100 - 129 BORDE RLINE HIGH: 130 - 159 HIGH: 160 - 189 VERY HIGH: > OR = 190 Not Available [facility] [address] [place] [address], [address], 01/31/2019 14:14:02/01/2001/31/2019 TSH, serum or plasm a TSH 1.070 uIU/m L 0.290- 5.500 normal Not Available [facility] [address] [place] [address], [address], 01/31/2019 14:08:12 02/01/20 19 01/31/2019 T3, free, serum or plasm a T3 free 2.86 pg/mL 2.00-4 .40 normal Not Available [facility] [address] [place] [address], [address], 01/31/2019 14:07:53 02/01/2001/31/2019 T4, free, serum T4,free 1.13 NG/dL 0.93-1 .70 normal Not Available [facility] [address] [place] [address], [address], 01/31/2019 14:07:52 02/01/20 19 01/31/2019 CBC w/ auto diff white blood cells 8.4 K/uL 3.8-10 .8 normal Not Available [facility] [address] [place] [address], [address], 01/31/2019 15:28:59 02/01/2001/31/2019 CBC w/ auto diff red blood cells 4.46 M/uL 4.20-5 .80 normal Not Available [facility] [address] [place] [address], [address], 01/31/2019 15:28:59 02/01/2001/31/2019 CBC w/ auto diff hemoglobin 14.2 g/dL 14.0-1 8.0 normal Not Available [facility] [address] [place] [address], [address], 01/31/2019 15:28:59 02/01/2001/31/2019 CBC w/ auto diff hematocrit 40.5 % 40.0-5 2.0 normal Not Available [facility] [address] [place] [address], [address], 01/31/2019 15:28:59 02/01/2001/31/2019 CBC w/ auto diff MCV 91 fL 80-100 normal Not Available [facility] [address] [place] [address], [address], 01/31/2019 15:28:59 02/01/20 19 01/31/2019 CBC w/ auto diff MCH 32 pg 26-35 normal Not Available [facility] [address] [place] [address], [address], 01/31/2019 15:28:59 02/01/20 19 01/31/2019 CBC w/ auto diff MCHC 35 g/dL 32-36 normal Not Available [facility] [address] [place] [address], [address], 01/31/2019 15:28:59 02/01/2001/31/2019 CBC w/ auto diff RDW 13.0 % 11.0-1 5.0 normal Not Available [facility] [address] [place] [address], [address], 01/31/2019 15:28:59 02/01/20 19 01/31/2019 CBC w/ auto diff MPV 7.3 fL 6.2-10 .5 normal Not Available [facility] [address] [place] [address], [address], 01/31/2019 15:28:59 02/01/2001/31/2019 CBC w/ auto diff platelet count 234 K/uL 130-40 0 normal Not Available [facility] [address] [place] [address], [address], 01/31/2019 15:28:59 02/01/2001/31/2019 CBC w/ auto diff neutrophil,a bsolute 5.7 K/uL 1.6-8. 4 normal Not Available [facility] [address] [place] [address], [address], 01/31/2019 15:28:59 02/01/20 19 01/31/2019 CBC w/ auto diff lymphocyte,a bsolute 1.9 K/uL 0.4-5. 1 normal Not Available [facility] [address] [place] [address], [address], 01/31/2019 15:28:59 02/01/20 19 01/31/2019 CBC w/ auto diff monocyte,abs olute 0.7 K/uL 0.0-1. 2 normal Not Available [facility] [address] [place] [address], [address], 01/31/2019 15:28:59 02/01/20 19 01/31/2019 CBC w/ auto diff eosinophil,a bsolute 0.1 K/uL 0.0-0. 8 normal Not Available [facility] [address] [place] [address], [address], 01/31/2019 15:28:59 02/01/2001/31/2019 CBC w/ auto diff basophil,abs olute 0.0 K/uL 0.0-0. 3 normal Not Available [facility] [address] [place] [address], [address], 01/31/2019 15:28:59 02/01/2001/31/2019 CBC w/ auto diff % neutrophils 68.5 % 42.0-7 8.0 normal Not Available [facility] [address] [place] [address], [address], 01/31/2019 15:28:59 02/01/2001/31/2019 CBC w/ auto diff % lymphocytes 22.4 % 11.0-4 7.0 normal Not Available [facility] [address] [place] [address], [address], 01/31/2019 15:28:59 02/01/2001/31/2019 CBC w/ auto diff % monocytes 7.8 % 0.0-11 .0 normal Not Available [facility] [address] [place] [address], [address], 01/31/2019 15:28:59 02/01/2001/31/2019 CBC w/ auto diff % eosinophils 1.0 % 0.0-7. 0 normal Not Available [facility] [address] [place] [address], [address], 01/31/2019 15:28:59 02/01/20 19 01/31/2019 CBC w/ auto diff % basophils 0.3 % 0.0-3. 0 normal Not Available [facility] [address] [place] [address], [address], 01/31/2019 15:28:59 02/01/20 19 01/31/2019 CBC w/ auto diff nucleated red cells 0.1 % 0.0-0. 9 normal Not Available [facility] [address] [place] [address], [address], 01/31/2019 15:28:59 02/01/20 19 01/31/2019 CBC w/ auto diff nucleated RBCs, absolute 0.01 K/uL not estab. normal Not Available [facility] [address] [place] [address], [address], 01/31/2019 15:28:59 02/01/2001/31/2019 CMP, serum or plasm a glucose 217 mg/dL 74-100 high Not Available [facility] [address] [place] [address], [address], 01/31/2019 14:21:26 02/01/2001/31/2019 CMP, serum or plasm a blood urea nitrogen 9 mg/dL 6-20 normal Not Available [facility] [address] [place] [address], [address], 01/31/2019 14:21:26 02/01/2001/31/2019 CMP, serum or plasm a creatinine 0.67 mg/dL 0.70-1 .25 low Not Available [facility] [address] [place] [address], [address], 01/31/2019 14:21:26 02/01/2001/31/2019 CMP, serum or plasm a BUN/creatini ne ratio 13 (calc ) 10-20 normal Not Available [facility] [address] [place] [address], [address], 01/31/2019 14:21:26 02/01/20 19 01/31/2019 CMP, serum or plasm a sodium 138 mmol/ L 136-14 5 normal Not Available [facility] [address] [place] [address], [address], 01/31/2019 14:21:26 02/01/20 19 01/31/2019 CMP, serum or plasm a potassium 3.8 mmol/ L 3.4-5. 0 normal Not Available [facility] [address] [place] [address], [address], 01/31/2019 14:21:26 02/01/20 19 01/31/2019 CMP, serum or plasm a chloride 101 mmol/ L 98-107 normal Not Available [facility] [address] [place] [address], [address], 01/31/2019 14:21:26 02/01/20 19 01/31/2019 CMP, serum or plasm a carbon dioxide 20 mmol/ L 20-32 normal Not Available [facility] [address] [place] [address], [address], 01/31/2019 14:21:26 02/01/2001/31/2019 CMP, serum or plasm a anion gap 17 (calc ) 7-25 normal Not Available [facility] [address] [place] [address], [address], 01/31/2019 14:21:26 02/01/2001/31/2019 CMP, serum or plasm a calcium 9.2 mg/dL 8.6-10 .2 normal Not Available [facility] [address] [place] [address], [address], 01/31/2019 14:21:26 02/01/20 19 01/31/2019 CMP, serum or plasm a total protein 7.4 g/dL 6.4-8. 3 normal Not Available [facility] [address] [place] [address], [address], 01/31/2019 14:21:26 02/01/2001/31/2019 CMP, serum or plasm a albumin 4.4 g/dL 3.5-5. 2 normal Not Available [facility] [address] [place] [address], [address], 01/31/2019 14:21:26 02/01/2001/31/2019 CMP, serum or plasm a globulin 3.0 g/dL_ (calc ) 1.5-4. 5 normal Not Available [facility] [address] [place] [address], [address], 01/31/2019 14:21:26 02/01/2001/31/2019 CMP, serum or plasm a albumin/glob ulin ratio 1.5 (calc ) 1.1-2. 5 normal Not Available [facility] [address] [place] [address], [address], 01/31/2019 14:21:26 02/01/2001/31/2019 CMP, serum or plasm a bilirubin, total 0.6 mg/dL 0.1-1. 2 normal Not Available [facility] [address] [place] [address], [address], 01/31/2019 14:21:26 02/01/2001/31/2019 CMP, serum or plasm a alkaline phosphatase 67 U/L 40-130 normal Not Available [facility] [address] [place], [address], 01/31/2019 14:21:26 02/01/2001/31/2019 CMP, serum or plasm a AST 34 U/L 0-40 normal Not Available [facility] [address] [place] [address], [address], 01/31/2019 14:21:26 02/01/202019 CMP, serum or plasm a ALT 43 U/L 0-41 high Not Available [facility] [address] [place], [address], 01/31/2019 14:21:26 02/01/20 19 01/31/2019 CMP, serum or plasm a GFR 115 >= 60 normal Not Available [facility] [address] [place], [address], 01/31/2019 14:21:26 02/01/20 19 01/31/2019 CMP, serum or plasm a GFR non- 99 >= 60 normal NOT E NEW calcu latio n for GFR is based on the Natio nal Kidne y Found ation CKD-E PI equat ion and allow s for repor ting GFR value s great er than 60 mL/mi n/1.7 3 m2. This calcu latio n has not been valid ated for patie nts less than 18 yrs., pregn ant women and Hispa nics. Chron ic kidne y disea se is defin ed as kidne y damag e or GFR less than 60 mL/mi n/1.7 3 m2 for 3 month s or longe r. Not Available [facility] [place], [address], 01/31/2019 14:21:26 02/08/20 19 02/08/2019 parti al throm bopla stin time, activ ated (aptt ), plasm a (post -hepa rin) PTT (APTT) 25.4 secon ds 22.5-3 0.1 normal PLEAS E NOTE: NEW DORON L RANGE Not Available [facility] [address] [place], [address], 02/08/2019 10:17:43 02/08/2002/08/2019 PT/IN R prothrombin time 11.2 secon ds 9.1-11 .1 high PLEAS E NOTE: NEW DORON L RANGE Not Available [facility] [address] [place], [address], 02/08/2019 10:17:42 02/08/20 19 02/08/2019 PT/IN R INR 1.1 2.0-3. 0 low INR OF 2.0 TO 3.0 RECOM PRAVEENA D FOR: PROPH YLAXI S AND TREAT MENT OF VENOU S THROM BOSIS TREAT MENT OF PULMO NARY EMBOL ISM PREVE NTION OF SYSTE JANEY EMBOL ISM TISSU E HEART VALVE S, VALVU LAR HEART DISEA SE ACUTE MYOCA RDIAL INFAR CTION , ATRIA L FIBRI LLATI ON INR OF 2.5 TO 3.5 RECOM PRAVEENA D FOR: RECUR RENT SYSTE JANEY EMBOL ISM MECHA NICAL PROST HETIC VALVE S Not Available [facility] [address] [place] [address], [address], 02/08/2019 10:17:42 06/27/20 19 06/27/2019 parti al throm bopla stin time, activ ated (aptt ), plasm a (post -hepa rin) PTT (APTT) 24.8 secon ds 22.5-3 0.1 normal Not Available [facility] [address] [place] [address], [address], 06/27/2019 17:27:56 06/27/2006/27/2019 PT/IN R prothrombin time 10.7 secon ds 9.1-11 .1 normal Not Available [facility] [address] [place] [address], [address], 06/27/2019 17:27:56 06/27/2006/27/2019 PT/IN R INR 1.1 2.0-3. 0 low INR OF 2.0 TO 3.0 RECOM PRAVEENA D FOR: PROPH YLAXI S AND TREAT MENT OF VENOU S THROM BOSIS TREAT MENT OF PULMO NARY EMBOL ISM PREVE NTION OF SYSTE JANEY EMBOL ISM TISSU E HEART VALVE S, VALVU LAR HEART DISEA SE ACUTE MYOCA RDIAL INFAR CTION , ATRIA L FIBRI LLATI ON INR OF 2.5 TO 3.5 RECOM PRAVEENA D FOR: RECUR RENT SYSTE JANEY EMBOL ISM MECHA NICAL PROST HETIC VALVE S Not Available [facility] [address] [place] [address], [address], 06/27/2019 17:27:56 06/27/2006/27/2019 CMP, serum or plasm a glucose 114 mg/dL 74-100 high Not Available [facility] [address] [place] [address], [address], 06/27/2019 11:48:10 06/27/2006/27/2019 CMP, serum or plasm a blood urea nitrogen 13 mg/dL 6-20 normal Not Available [facility] [address] [place] [address], [address], 06/27/2019 11:48:10 06/27/2006/27/2019 CMP, serum or plasm a creatinine 0.62 mg/dL 0.70-1 .25 low Not Available [facility] [address] [place] [address], [address], 06/27/2019 11:48:10 06/27/2006/27/2019 CMP, serum or plasm a BUN/creatini ne ratio 21 (calc ) 10-20 high Not Available [facility] [address] [place] [address], [address], 06/27/2019 11:48:10 06/27/2006/27/2019 CMP, serum or plasm a sodium 140 mmol/ L 136-14 5 normal Not Available [facility] [address] [place] [address], [address], 06/27/2019 11:48:10 06/27/2006/27/2019 CMP, serum or plasm a potassium 3.9 mmol/ L 3.4-5. 0 normal Not Available [facility] [address] [place] [address], [address], 06/27/2019 11:48:10 06/27/2006/27/2019 CMP, serum or plasm a chloride 101 mmol/ L 98-107 normal Not Available [facility] [address] [place] [address], [address], 06/27/2019 11:48:10 06/27/2006/27/2019 CMP, serum or plasm a carbon dioxide 24 mmol/ L 20-32 normal Not Available [facility] [address] [place] [address], [address], 06/27/2019 11:48:10 06/27/2006/27/2019 CMP, serum or plasm a anion gap 15 (calc ) 7-25 normal Not Available [facility] [address] [place] [address], [address], 06/27/2019 11:48:10 06/27/2006/27/2019 CMP, serum or plasm a calcium 9.3 mg/dL 8.6-10 .2 normal Not Available [facility] [address] [place] [address], [address], 06/27/2019 11:48:10 06/27/2006/27/2019 CMP, serum or plasm a total protein 7.2 g/dL 6.4-8. 3 normal Not Available [facility] [address] [place] [address], [address], 06/27/2019 11:48:10 06/27/2006/27/2019 CMP, serum or plasm a albumin 4.4 g/dL 3.5-5. 2 normal Not Available [facility] [address] [place] [address], [address], 06/27/2019 11:48:10 06/27/2006/27/2019 CMP, serum or plasm a globulin 2.8 g/dL_ (calc ) 1.5-4. 5 normal Not Available [facility] [address] [place] [address], [address], 06/27/2019 11:48:10 06/27/2006/27/2019 CMP, serum or plasm a albumin/glob ulin ratio 1.6 (calc ) 1.1-2. 5 normal Not Available [facility] [address] [place] [address], [address], 06/27/2019 11:48:10 06/27/2006/27/2019 CMP, serum or plasm a bilirubin, total 0.6 mg/dL 0.1-1. 2 normal Not Available [facility] [address] [place] [address], [address], 06/27/2019 11:48:10 06/27/2006/27/2019 CMP, serum or plasm a alkaline phosphatase 66 U/L 40-130 normal Not Available [facility] [address] [place] [address], [address], 06/27/2019 11:48:10 06/27/2006/27/2019 CMP, serum or plasm a AST 24 U/L 0-40 normal Not Available [facility] [address] [place] [address], [address], 06/27/2019 11:48:10 06/27/2006/27/2019 CMP, serum or plasm a ALT 26 U/L 0-41 normal Not Available [facility] [address] [place] [address], [address], 06/27/2019 11:48:10 06/27/2006/27/2019 CMP, serum or plasm a GFR 118 >= 60 normal Not Available [facility] [address] [place] [address], [address], 06/27/2019 11:48:10 06/27/2006/27/2019 CMP, serum or plasm a GFR non- 102 >= 60 normal NOT E NEW calcu latio n for GFR is based on the Natio nal Kidne y Found ation CKD-E PI equat ion and allow s for repor ting GFR value s great er than 60 mL/mi n/1.7 3 m2. This calcu latio n has not been valid ated for patie nts less than 18 yrs., pregn ant women and Hispa nics. Chron ic kidne y disea se is defin ed as kidne y damag e or GFR less than 60 mL/mi n/1.7 3 m2 for 3 month s or longe r. Not Available [facility] [address] [place] [address], [address], 06/27/2019 11:48:10 06/27/2006/27/2019 CBC w/ auto diff white blood cells 6.8 K/uL 3.8-10 .8 normal Not Available [facility] [address] [place] [address], [address], 06/27/2019 11:42:24 06/27/2006/27/2019 CBC w/ auto diff red blood cells 4.26 M/uL 4.20-5 .80 normal Not Available [facility] [address] [place] [address], [address], 06/27/2019 11:42:24 06/27/2006/27/2019 CBC w/ auto diff hemoglobin 13.6 g/dL 14.0-1 8.0 low Not Available [facility] [address] [place] [address], [address], 06/27/2019 11:42:24 06/27/2006/27/2019 CBC w/ auto diff hematocrit 39.6 % 40.0-5 2.0 low Not Available [facility] [address] [place] [address], [address], 06/27/2019 11:42:24 06/27/2006/27/2019 CBC w/ auto diff MCV 93 fL 80-100 normal Not Available [facility] [address] [place] [address], [address], 06/27/2019 11:42:24 06/27/2006/27/2019 CBC w/ auto diff MCH 32 pg 26-35 normal Not Available [facility] [address] [place] [address], [address], 06/27/2019 11:42:24 06/27/20 19 06/27/2019 CBC w/ auto diff MCHC 34 g/dL 32-36 normal Not Available [facility] [address] [place] [address], [address], 06/27/2019 11:42:24 06/27/2006/27/2019 CBC w/ auto diff RDW 13.0 % 11.0-1 5.0 normal Not Available [facility] [address] [place] [address], [address], 06/27/2019 11:42:24 06/27/2006/27/2019 CBC w/ auto diff MPV 6.6 fL 6.2-10 .5 normal Not Available [facility] [address] [place] [address], [address], 06/27/2019 11:42:24 06/27/2006/27/2019 CBC w/ auto diff platelet count 213 K/uL 130-40 0 normal Not Available [facility] [address] [place] [address], [address], 06/27/2019 11:42:24 06/27/2006/27/2019 CBC w/ auto diff neutrophil,a bsolute 4.4 K/uL 1.6-8. 4 normal Not Available [facility] [address] [place] [address], [address], 06/27/2019 11:42:24 06/27/2006/27/2019 CBC w/ auto diff lymphocyte,a bsolute 1.8 K/uL 0.4-5. 1 normal Not Available [facility] [address] [place] [address], [address], 06/27/2019 11:42:24 06/27/2006/27/2019 CBC w/ auto diff monocyte,abs olute 0.4 K/uL 0.0-1. 2 normal Not Available [facility] [address] [place] [address], [address], 06/27/2019 11:42:24 06/27/2006/27/2019 CBC w/ auto diff eosinophil,a bsolute 0.1 K/uL 0.0-0. 8 normal Not Available [facility] [address] [place] [address], [address], 06/27/2019 11:42:24 06/27/2006/27/2019 CBC w/ auto diff basophil,abs olute 0.1 K/uL 0.0-0. 3 normal Not Available [facility] [address] [place] [address], [address], 06/27/2019 11:42:24 06/27/2006/27/2019 CBC w/ auto diff % neutrophils 64.6 % 42.0-7 8.0 normal Not Available [facility] [address] [place] [address], [address], 06/27/2019 11:42:24 06/27/2006/27/2019 CBC w/ auto diff % lymphocytes 25.9 % 11.0-4 7.0 normal Not Available [facility] [address] [place] [address], [address], 06/27/2019 11:42:24 06/27/2006/27/2019 CBC w/ auto diff % monocytes 6.5 % 0.0-11 .0 normal Not Available [facility] [address] [place] [address], [address], 06/27/2019 11:42:24 06/27/2006/27/2019 CBC w/ auto diff % eosinophils 2.2 % 0.0-7. 0 normal Not Available [facility] [address] [place] [address], [address], 06/27/2019 11:42:24 06/27/2006/27/2019 CBC w/ auto diff % basophils 0.8 % 0.0-3. 0 normal Not Available [facility] [address] [place] [address], [address], 06/27/2019 11:42:24 06/27/2006/27/2019 CBC w/ auto diff nucleated red cells 0.0 % 0.0-0. 9 normal Not Available [facility] [address] [place] [address], [address], 06/27/2019 11:42:24 06/27/2006/27/2019 CBC w/ auto diff nucleated RBCs, absolute 0.00 K/uL not estab. normal Not Available [facility] [address] [place] [address], [address], 06/27/2019 11:42:24 03/12/20 20 03/12/2020 CMP, serum or plasm a glucose 129 mg/dL 74-100 high Not Available [facility] [address] [place] [address], [address], 03/12/2020 20:41:54 03/12/20 20 03/12/2020 CMP, serum or plasm a blood urea nitrogen 10 mg/dL 6-20 normal Not Available [facility] [address] [place] [address], [address], 03/12/2020 20:41:54 03/12/20 20 03/12/2020 CMP, serum or plasm a creatinine 0.71 mg/dL 0.70-1 .25 normal Not Available [facility] [address] [place] [address], [address], 03/12/2020 20:41:54 03/12/20 20 03/12/2020 CMP, serum or plasm a BUN/creatini ne ratio 14 (calc ) 10-20 normal Not Available [facility] [address] [place] [address], [address], 03/12/2020 20:41:54 03/12/20 20 03/12/2020 CMP, serum or plasm a sodium 137 mmol/ L 136-14 5 normal Not Available [facility] [address] [place] [address], [address], 03/12/2020 20:41:54 03/12/20 20 03/12/2020 CMP, serum or plasm a potassium 4.1 mmol/ L 3.4-5. 0 normal Not Available [facility] [address] [place] [address], [address], 03/12/2020 20:41:54 03/12/20 20 03/12/2020 CMP, serum or plasm a chloride 98 mmol/ L 98-107 normal Not Available [facility] [address] [place] [address], [address], 03/12/2020 20:41:54 03/12/20 20 03/12/2020 CMP, serum or plasm a carbon dioxide 24 mmol/ L 20-32 normal Not Available [facility] [address] [place] [address], [address], 03/12/2020 20:41:54 03/12/20 20 03/12/2020 CMP, serum or plasm a anion gap 15 (calc ) 7-25 normal Not Available [facility] [address] [place] [address], [address], 03/12/2020 20:41:54 03/12/20 20 03/12/2020 CMP, serum or plasm a calcium 9.4 mg/dL 8.6-10 .2 normal Not Available [facility] [address] [place] [address], [address], 03/12/2020 20:41:54 03/12/20 20 03/12/2020 CMP, serum or plasm a total protein 7.3 g/dL 6.4-8. 3 normal Not Available [facility] [address] [place] [address], [address], 03/12/2020 20:41:54 03/12/20 20 03/12/2020 CMP, serum or plasm a albumin 4.3 g/dL 3.5-5. 2 normal Not Available [facility] [address] [place] [address], [address], 03/12/2020 20:41:54 03/12/20 20 03/12/2020 CMP, serum or plasm a globulin 3.0 g/dL_ (calc ) 1.5-4. 5 normal Not Available [facility] [address] [place] [address], [address], 03/12/2020 20:41:54 03/12/20 20 03/12/2020 CMP, serum or plasm a albumin/glob ulin ratio 1.4 (calc ) 1.1-2. 5 normal Not Available [facility] [address] [place] [address], [address], 03/12/2020 20:41:54 03/12/20 20 03/12/2020 CMP, serum or plasm a bilirubin, total 0.5 mg/dL 0.1-1. 2 normal Not Available [facility] [address] [place] [address], [address], 03/12/2020 20:41:54 03/12/20 20 03/12/2020 CMP, serum or plasm a alkaline phosphatase 70 U/L 40-130 normal Not Available [facility] [address] [place] [address], [address], 03/12/2020 20:41:54 03/12/20 20 03/12/2020 CMP, serum or plasm a AST 18 U/L 0-40 normal Not Available [facility] [address] [place] [address], [address], 03/12/2020 20:41:54 03/12/20 20 03/12/2020 CMP, serum or plasm a ALT 18 U/L 0-41 normal Not Available [facility] [address] [place] [address], [address], 03/12/2020 20:41:54 03/12/20 20 03/12/2020 CMP, serum or plasm a GFR 111 >= 60 normal Not Available [facility] [address] [place], [address], 03/12/2020 20:41:54 03/12/20 20 03/12/2020 CMP, serum or plasm a GFR non- 96 >= 60 normal NOT E NEW calcu latio n for GFR is based on the Natio nal Kidne y Found ation CKD-E PI equat ion and allow s for repor ting GFR value s great er than 60 mL/mi n/1.7 3 m2. This calcu latio n has not been valid ated for patie nts less than 18 yrs., pregn ant women and Hispa nics. Chron ic kidne y disea se is defin ed as kidne y damag e or GFR less than 60 mL/mi n/1.7 3 m2 for 3 month s or longe r. Not Available [facility] [address] [place] [address], [address], 03/12/2020 20:41:54 03/12/20 20 03/12/2020 parti al throm bopla stin time, activ ated (aptt ), plasm a (post -hepa rin) PTT (APTT) 23.9 secon ds 21.1-3 0.4 normal PLEAS E NOTE: NEW DORON L RANGE Not Available [facility] [place], [address], 03/12/2020 13:50:42 03/12/20 20 03/12/2020 PT/IN R prothrombin time 11.0 secon ds 9.0-11 .2 normal PLEAS E NOTE: NEW DORON L RANGE Not Available [facility] [address] [place], [address], 03/12/2020 13:50:41 03/12/2003/12/2020 PT/IN R INR 1.1 2.0-3. 0 low INR OF 2.0 TO 3.0 RECOM PRAVEENA D FOR: PROPH YLAXI S AND TREAT MENT OF VENOU S THROM BOSIS TREAT MENT OF PULMO NARY EMBOL ISM PREVE NTION OF SYSTE JANEY EMBOL ISM TISSU E HEART VALVE S, VALVU LAR HEART DISEA SE ACUTE MYOCA RDIAL INFAR CTION , ATRIA L FIBRI LLATI ON INR OF 2.5 TO 3.5 RECOM PRAVEENA D FOR: RECUR RENT SYSTE JANEY EMBOL ISM MECHA NICAL PROST HETIC VALVE S Not Available [facility] [address] [place] [address], [address], 03/12/2020 13:50:41 03/12/20 20 03/12/2020 CBC w/ auto diff white blood cells 7.5 K/uL 3.8-10 .8 normal Not Available [facility] [address] [place] [address], [address], 03/12/2020 13:41:33 03/12/20 20 03/12/2020 CBC w/ auto diff red blood cells 4.40 M/uL 4.20-5 .80 normal Not Available [facility] [address] [place] [address], [address], 03/12/2020 13:41:33 03/12/20 20 03/12/2020 CBC w/ auto diff hemoglobin 13.9 g/dL 14.0-1 8.0 low Not Available [facility] [address] [place] [address], [address], 03/12/2020 13:41:33 03/12/20 20 03/12/2020 CBC w/ auto diff hematocrit 39.6 % 40.0-5 2.0 low Not Available [facility] [address] [place] [address], [address], 03/12/2020 13:41:33 03/12/20 20 03/12/2020 CBC w/ auto diff MCV 90 fL 80-100 normal Not Available [facility] [address] [place] [address], [address], 03/12/2020 13:41:33 03/12/20 20 03/12/2020 CBC w/ auto diff MCH 32 pg 26-35 normal Not Available [facility] [address] [place] [address], [address], 03/12/2020 13:41:33 03/12/20 20 03/12/2020 CBC w/ auto diff MCHC 35 g/dL 32-36 normal Not Available [facility] [address] [place] [address], [address], 03/12/2020 13:41:33 03/12/20 20 03/12/2020 CBC w/ auto diff RDW 14.1 % 11.0-1 5.0 normal Not Available [facility] [address] [place] [address], [address], 03/12/2020 13:41:33 03/12/20 20 03/12/2020 CBC w/ auto diff MPV 6.2 fL 6.2-10 .5 normal Not Available [facility] [address] [place] [address], [address], 03/12/2020 13:41:33 03/12/20 20 03/12/2020 CBC w/ auto diff platelet count 270 K/uL 130-40 0 normal Not Available [facility] [address] [place] [address], [address], 03/12/2020 13:41:33 03/12/20 20 03/12/2020 CBC w/ auto diff neutrophil,a bsolute 4.5 K/uL 1.6-8. 4 normal Not Available [facility] [address] [place] [address], [address], 03/12/2020 13:41:33 03/12/20 20 03/12/2020 CBC w/ auto diff lymphocyte,a bsolute 2.3 K/uL 0.4-5. 1 normal Not Available [facility] [address] [place] [address], [address], 03/12/2020 13:41:33 03/12/20 20 03/12/2020 CBC w/ auto diff monocyte,abs olute 0.5 K/uL 0.0-1. 2 normal Not Available [facility] [address] [place] [address], [address], 03/12/2020 13:41:33 03/12/20 20 03/12/2020 CBC w/ auto diff eosinophil,a bsolute 0.1 K/uL 0.0-0. 8 normal Not Available [facility] [address] [place] [address], [address], 03/12/2020 13:41:33 03/12/20 20 03/12/2020 CBC w/ auto diff basophil,abs olute 0.1 K/uL 0.0-0. 3 normal Not Available [facility] [address] [place] [address], [address], 03/12/2020 13:41:33 03/12/20 20 03/12/2020 CBC w/ auto diff % neutrophils 60.2 % 42.0-7 8.0 normal Not Available [facility] [address] [place] [address], [address], 03/12/2020 13:41:33 03/12/20 20 03/12/2020 CBC w/ auto diff % lymphocytes 31.2 % 11.0-4 7.0 normal Not Available [facility] [address] [place] [address], [address], 03/12/2020 13:41:33 03/12/20 20 03/12/2020 CBC w/ auto diff % monocytes 6.3 % 0.0-11 .0 normal Not Available [facility] [address] [place] [address], [address], 03/12/2020 13:41:33 03/12/20 20 03/12/2020 CBC w/ auto diff % eosinophils 1.5 % 0.0-7. 0 normal Not Available [facility] [address] [place] [address], [address], 03/12/2020 13:41:33 03/12/20 20 03/12/2020 CBC w/ auto diff % basophils 0.8 % 0.0-3. 0 normal Not Available [facility] [address] [place] [address], [address], 03/12/2020 13:41:33 03/12/20 20 03/12/2020 CBC w/ auto diff nucleated red cells 0.0 % 0.0-0. 9 normal Not Available [facility] [address] [place] [address], [address], 03/12/2020 13:41:33 03/12/20 20 03/12/2020 CBC w/ auto diff nucleated RBCs, absolute 0.00 K/uL not estab. normal Not Available [facility] [address] [place] [address], [address], 03/12/2020 13:41:33 10/07/20 20 10/09/2020 eb ia, quant , plasm a ammonia 67 umol/ L < or = 72 normal TEST PERFO RMED AT: [facility] [address] [place] [address] RACHEL JOHNSON M.D. Not Available [facility] [address] [place] [address], [address], 10/09/2020 12:35:58 10/07/2010/09/2020 afp (alph a-fet oprot ein) tumor marke r, serum or plasm a AFP, tumor marker 3.9 NG/mL <6.1 normal This test was perfo rmed using the [employer] an Coult er chemi lumin escen t metho d. Value s obtai glenny from diffe rent assay metho ds canno t be used inter gong eably . AFP level s, regar dless of value , shoul d not be inter prete d as absol [place] evide nce of the prese nce or absen ce of disea se. TEST PERFO RMED AT: [facility] [place] [address] [place] [address] DARIEN Gaines MD Not Available [facility] [address] [place] [address], [address], 10/09/2020 12:35:58 10/07/20 20 10/09/2020 CMP, serum or plasm a glucose 116 mg/dL 74-100 high Not Available [facility] [address] [place] [address], [address], 10/09/2020 09:27:27 10/07/20 20 10/09/2020 CMP, serum or plasm a blood urea nitrogen 14 mg/dL 6-20 normal Not Available [facility] [address] [place] [address], [address], 10/09/2020 09:27:27 10/07/2010/09/2020 CMP, serum or plasm a creatinine 0.59 mg/dL 0.70-1 .25 low Not Available [facility] [address] [place] [address], [address], 10/09/2020 09:27:27 10/07/20 20 10/09/2020 CMP, serum or plasm a BUN/creatini ne ratio 24 (calc ) 10-20 high Not Available [facility] [address] [place] [address], [address], 10/09/2020 09:27:27 10/07/20 20 10/09/2020 CMP, serum or plasm a sodium 139 mmol/ L 136-14 5 normal Not Available [facility] [address] [place] [address], [address], 10/09/2020 09:27:27 10/07/20 20 10/09/2020 CMP, serum or plasm a potassium 4.1 mmol/ L 3.4-5. 0 normal Not Available [facility] [address] [place] [address], [address], 10/09/2020 09:27:27 10/07/20 20 10/09/2020 CMP, serum or plasm a chloride 102 mmol/ L 98-107 normal Not Available [facility] [address] [place] [address], [address], 10/09/2020 09:27:27 10/07/20 20 10/09/2020 CMP, serum or plasm a carbon dioxide 23 mmol/ L 20-32 normal Not Available [facility] [address] [place] [address], [address], 10/09/2020 09:27:27 10/07/20 20 10/09/2020 CMP, serum or plasm a anion gap 14 (calc ) 7-25 normal Not Available [facility] [address] [place] [address], [address], 10/09/2020 09:27:27 10/07/20 20 10/09/2020 CMP, serum or plasm a calcium 9.2 mg/dL 8.6-10 .2 normal Not Available [facility] [address] [place] [address], [address], 10/09/2020 09:27:27 10/07/20 20 10/09/2020 CMP, serum or plasm a total protein 6.9 g/dL 6.4-8. 3 normal Not Available [facility] [address] [place] [address], [address], 10/09/2020 09:27:27 10/07/20 20 10/09/2020 CMP, serum or plasm a albumin 4.4 g/dL 3.5-5. 2 normal Not Available [facility] [address] [place] [address], [address], 10/09/2020 09:27:27 10/07/2010/09/2020 CMP, serum or plasm a globulin 2.5 g/dL_ (calc ) 1.5-4. 5 normal Not Available [facility] [address] [place] [address], [address], 10/09/2020 09:27:27 10/07/20 20 10/09/2020 CMP, serum or plasm a albumin/glob ulin ratio 1.8 (calc ) 1.1-2. 5 normal Not Available [facility] [address] [place] [address] [place], [address], 10/09/2020 09:27:27 10/07/2010/09/2020 CMP, serum or plasm a bilirubin, total 0.4 mg/dL 0.1-1. 2 normal Not Available [facility] [address] [place] [address], [address], 10/09/2020 09:27:27 10/07/2010/09/2020 CMP, serum or plasm a alkaline phosphatase 67 U/L 40-130 normal Not Available [facility] [address] [place] [address], [phone], 10/09/2020 09:27:27 10/07/2010/09/2020 CMP, serum or plasm a AST 23 U/L 0-40 normal Not Available [facility] [address] [place] [address], [address], 10/09/2020 09:27:27 10/07/2010/09/2020 CMP, serum or plasm a ALT 23 U/L 0-41 normal Not Available [facility] [address] [place] [address], [address], 10/09/2020 09:27:27 10/07/2010/09/2020 CMP, serum or plasm a GFR 119 >= 60 normal Not Available [facility] [address] [place], [address], 10/09/2020 09:27:27 10/07/2010/09/2020 CMP, serum or plasm a GFR non- 103 >= 60 normal NOT E NEW calcu latio n for GFR is based on the Natio nal Kidne y Found ation CKD-E PI equat ion and allow s for repor ting GFR value s great er than 60 mL/mi n/1.7 3 m2. This calcu latio n has not been valid ated for patie nts less than 18 yrs., pregn ant women and Hispa nics. Chron ic kidne y disea se is defin ed as kidne y damag e or GFR less than 60 mL/mi n/1.7 3 m2 for 3 month s or longe r. Not Available [facility] [address] [place] [address], [address], 10/09/2020 09:27:27 10/07/20 20 10/09/2020 iron + total iron- steven ng capac ity (TIBC ), serum iron 168 ug/dL 59-158 high Not Available [facility] [address] [place] [address], [address], 10/09/2020 09:27:25 10/07/2010/09/2020 iron + total iron- steven ng capac ity (TIBC ), serum total iron binding cap. 347 ug/dL _(devi c) 250-45 0 normal Not Available [facility] [address] [place] [address], [address], 10/09/2020 09:27:25 10/07/2010/09/2020 iron + total iron- steven ng capac ity (TIBC ), serum unsat.iron binding cap. 179 ug/dL 112-34 7 normal Not Available [facility] [address] [place] [address], [address], 10/09/2020 09:27:25 10/07/2010/09/2020 iron + total iron- steven ng capac ity (TIBC ), serum % saturation 48 %_(ca lc) 20-50 normal Not Available [facility] [address] [place] [address], [address], 10/09/2020 09:27:25 10/07/2010/09/2020 shirlene tin, serum or plasm a ferritin 72.4 NG/mL 30.0-4 00.0 normal Not Available [facility] [address] [place] [address], [address], 10/09/2020 09:20:49 10/07/2010/07/2020 PT/IN R prothrombin time 10.5 secon ds 9.0-11 .2 normal Not Available [facility] [address] [place] [address], [address], 10/07/2020 13:35:41 10/07/20 20 10/07/2020 PT/IN R INR 1.0 2.0-3. 0 low INR OF 2.0 TO 3.0 RECOM PRAVEENA D FOR: PROPH YLAXI S AND TREAT MENT OF VENOU S THROM BOSIS TREAT MENT OF PULMO NARY EMBOL ISM PREVE NTION OF SYSTE JANEY EMBOL ISM TISSU E HEART VALVE S, VALVU LAR HEART DISEA SE ACUTE MYOCA RDIAL INFAR CTION , ATRIA L FIBRI LLATI ON INR OF 2.5 TO 3.5 RECOM PRAVEENA D FOR: RECUR RENT SYSTE JANEY EMBOL ISM MECHA NICAL PROST HETIC VALVE S Not Available [facility] [address] [place] [address], [address], 10/07/2020 13:35:41 10/07/20 20 10/07/2020 CBC w/ auto diff white blood cells 7.0 K/uL 3.8-10 .8 normal Not Available [facility] [address] [place] [address], [address], 10/07/2020 13:31:19 10/07/20 20 10/07/2020 CBC w/ auto diff red blood cells 4.30 M/uL 4.20-5 .80 normal Not Available [facility] [address] [place] [address], [address], 10/07/2020 13:31:19 10/07/20 20 10/07/2020 CBC w/ auto diff hemoglobin 13.8 g/dL 14.0-1 8.0 low Not Available [facility] [address] [place] [address], [address], 10/07/2020 13:31:19 10/07/20 20 10/07/2020 CBC w/ auto diff hematocrit 39.2 % 40.0-5 2.0 low Not Available [facility] [address] [place], [address], 10/07/2020 13:31:19 10/07/20 20 10/07/2020 CBC w/ auto diff MCV 91 fL 80-100 normal Not Available [facility] [address] [place] [address], [address], 10/07/2020 13:31:19 10/07/20 20 10/07/2020 CBC w/ auto diff MCH 32 pg 26-35 normal Not Available [facility] [address] [place] [address], [address], 10/07/2020 13:31:19 10/07/2010/07/2020 CBC w/ auto diff MCHC 35 g/dL 32-36 normal Not Available [facility] [address] [place] [address], [address], 10/07/2020 13:31:19 10/07/20 20 10/07/2020 CBC w/ auto diff RDW 13.3 % 11.0-1 5.0 normal Not Available [facility] [address] [place] [address], [address], 10/07/2020 13:31:19 10/07/20 20 10/07/2020 CBC w/ auto diff MPV 6.7 fL 6.2-10 .5 normal Not Available [facility] [address] [place] [address], [address], 10/07/2020 13:31:19 10/07/20 20 10/07/2020 CBC w/ auto diff platelet count 219 K/uL 130-40 0 normal Not Available [facility] [address] [place] [address], [address], 10/07/2020 13:31:19 10/07/20 20 10/07/2020 CBC w/ auto diff neutrophil,a bsolute 4.3 K/uL 1.6-8. 4 normal Not Available [facility] [address] [place], [address], 10/07/2020 13:31:19 10/07/20 20 10/07/2020 CBC w/ auto diff lymphocyte,a bsolute 1.9 K/uL 0.4-5. 1 normal Not Available [facility] [address] [place] [address], [address], 10/07/2020 13:31:19 10/07/20 20 10/07/2020 CBC w/ auto diff monocyte,abs olute 0.6 K/uL 0.0-1. 2 normal Not Available [facility] [address] [place] [address], [address], 10/07/2020 13:31:19 10/07/20 20 10/07/2020 CBC w/ auto diff eosinophil,a bsolute 0.1 K/uL 0.0-0. 8 normal Not Available [facility] [address] [place] [address], [address], 10/07/2020 13:31:19 10/07/20 20 10/07/2020 CBC w/ auto diff basophil,abs olute 0.0 K/uL 0.0-0. 3 normal Not Available [facility] [address] [place] [address], [address], 10/07/2020 13:31:19 10/07/20 20 10/07/2020 CBC w/ auto diff % neutrophils 61.7 % 42.0-7 8.0 normal Not Available [facility] [address] [place] [address], [address], 10/07/2020 13:31:19 10/07/20 20 10/07/2020 CBC w/ auto diff % lymphocytes 27.8 % 11.0-4 7.0 normal Not Available [facility] [address] [place] [address], [address], 10/07/2020 13:31:19 10/07/20 20 10/07/2020 CBC w/ auto diff % monocytes 8.5 % 0.0-11 .0 normal Not Available [facility] [address] [place], [address], 10/07/2020 13:31:19 10/07/20 20 10/07/2020 CBC w/ auto diff % eosinophils 1.4 % 0.0-7. 0 normal Not Available [facility] [address] [place] [address], [address], 10/07/2020 13:31:19 10/07/20 20 10/07/2020 CBC w/ auto diff % basophils 0.6 % 0.0-3. 0 normal Not Available [facility] [address] [place] [address], [address], 10/07/2020 13:31:19 10/07/20 20 10/07/2020 CBC w/ auto diff nucleated red cells 0.0 % 0.0-0. 9 normal Not Available [facility] [address] [place] [address], [address], 10/07/2020 13:31:19 10/07/20 20 10/07/2020 CBC w/ auto diff nucleated RBCs, absolute 0.00 K/uL not estab. normal Not Available [facility] [address] [place] [address], [address], 10/07/2020 13:31:19 03/27/20 21 03/31/2021 afp (alph a-fet oprot ein) tumor marke r, serum or plasm a AFP, tumor marker 4.2 NG/mL <6.1 normal This test was perfo rmed using the [employer] an Pro V&Vt er chemi lumin escen t metho d. Value s obtai glenny from diffe rent assay metho ds canno t be used inter gong eably . AFP level s, regar dless of value , shoul d not be inter prete d as absol [place] evide nce of the prese nce or absen ce of disea se. TEST PERFO RMED AT: [facility] [address] [facility] [place] [address] DARIEN Gaines MD Not Available [facility] [address] [place] [address], [address], 03/31/2021 10:25:45 03/27/20 21 03/27/2021 CMP, serum or plasm a glucose 151 mg/dL 74-100 high Not Available [facility] [address] [place] [address], [address], 03/27/2021 14:02:05 03/27/20 21 03/27/2021 CMP, serum or plasm a blood urea nitrogen 18 mg/dL 6-20 normal Not Available [facility] [address] [place] [address], [address], 03/27/2021 14:02:05 03/27/20 21 03/27/2021 CMP, serum or plasm a creatinine 0.70 mg/dL 0.70-1 .20 normal Not Available [facility] [address] [place] [address], [address], 03/27/2021 14:02:05 03/27/20 21 03/27/2021 CMP, serum or plasm a BUN/creatini ne ratio 26 (calc ) 10-20 high Not Available [facility] [address] [place] [address], [address], 03/27/2021 14:02:05 03/27/20 21 03/27/2021 CMP, serum or plasm a sodium 138 mmol/ L 136-14 5 normal Not Available [facility] [address] [place] [address], [address], 03/27/2021 14:02:05 03/27/2003/27/2021 CMP, serum or plasm a potassium 4.0 mmol/ L 3.4-5. 0 normal Not Available [facility] [address] [place] [address], [address], 03/27/2021 14:02:05 03/27/20 21 03/27/2021 CMP, serum or plasm a chloride 103 mmol/ L 98-107 normal Not Available [facility] [address] [place] [address], [address], 03/27/2021 14:02:05 03/27/20 21 03/27/2021 CMP, serum or plasm a carbon dioxide 24 mmol/ L 22-29 normal Not Available [facility] [address] [place] [address], [address], 03/27/2021 14:02:05 03/27/20 21 03/27/2021 CMP, serum or plasm a anion gap 11 (calc ) 7-25 normal Not Available [facility] [address] [place] [address], [address], 03/27/2021 14:02:05 03/27/2003/27/2021 CMP, serum or plasm a calcium 9.1 mg/dL 8.6-10 .2 normal Not Available [facility] [address] [place] [address], [address], 03/27/2021 14:02:05 03/27/2003/27/2021 CMP, serum or plasm a total protein 7.1 g/dL 6.4-8. 3 normal Not Available [facility] [address] [place] [address], [address], 03/27/2021 14:02:05 03/27/2003/27/2021 CMP, serum or plasm a albumin 4.2 g/dL 3.5-5. 2 normal Not Available [facility] [address] [place] [address], [address], 03/27/2021 14:02:05 03/27/2003/27/2021 CMP, serum or plasm a globulin 2.9 g/dL_ (calc ) 1.5-4. 5 normal Not Available [facility] [address] [place] [address], [address], 03/27/2021 14:02:05 03/27/20 21 03/27/2021 CMP, serum or plasm a albumin/glob ulin ratio 1.4 (calc ) 1.1-2. 5 normal Not Available [facility] [address] [place] [address], [address], 03/27/2021 14:02:05 03/27/20 21 03/27/2021 CMP, serum or plasm a bilirubin, total 0.5 mg/dL 0.1-1. 2 normal Not Available [facility] [address] [place] [address], [address], 03/27/2021 14:02:05 03/27/2003/27/2021 CMP, serum or plasm a alkaline phosphatase 67 U/L 40-129 normal Not Available [facility] [address] [place] [address], [address], 03/27/2021 14:02:05 03/27/2003/27/2021 CMP, serum or plasm a AST 22 U/L 0-40 normal Not Available [facility] [address] [place] [address], [address], 03/27/2021 14:02:05 03/27/2003/27/2021 CMP, serum or plasm a ALT 26 U/L 0-41 normal Not Available [facility] [address] [place] [address], [address], 03/27/2021 14:02:05 03/27/2003/27/2021 CMP, serum or plasm a GFR 111 >= 60 normal Not Available [facility] [address] [place] [address], [address], 03/27/2021 14:02:05 03/27/2003/27/2021 CMP, serum or plasm a GFR non- 96 >= 60 normal NOT E Chron ic kidne y disea se is defin ed as kidne y damag e for more than 3 month s or a GFR less than 60 mL/mi n/1.7 3 m2 for great er than 3 month s. This calcu latio n has not been valid ated in pregn ant women . For pedia tric patie nts refer to Shikha Herrera Found ation https ://lindsay hu.dalia childress.o rg/pr dominique ional s/KDO QI/gf r_cal culat orPed Not Available [facility] [address] [place] [address], [address], 03/27/2021 14:02:05 03/27/20 21 03/27/2021 CBC w/ auto diff white blood cells 6.9 K/uL 3.8-10 .8 normal Not Available [facility] [address] [place] [address], [address], 03/27/2021 13:55:33 03/27/20 21 03/27/2021 CBC w/ auto diff red blood cells 4.28 M/uL 4.20-5 .80 normal Not Available [facility] [address] [place] [address], [address], 03/27/2021 13:55:33 03/27/20 21 03/27/2021 CBC w/ auto diff hemoglobin 13.7 g/dL 14.0-1 8.0 low Not Available [facility] [address] [place] [address], [address], 03/27/2021 13:55:33 03/27/20 21 03/27/2021 CBC w/ auto diff hematocrit 39.6 % 40.0-5 2.0 low Not Available [facility] [address] [place] [address], [address], 03/27/2021 13:55:33 03/27/20 21 03/27/2021 CBC w/ auto diff MCV 93 fL 80-100 normal Not Available [facility] [address] [place] [address], [address], 03/27/2021 13:55:33 03/27/20 21 03/27/2021 CBC w/ auto diff MCH 32 pg 26-35 normal Not Available [facility] [address] [place] [address], [address], 03/27/2021 13:55:33 03/27/20 21 03/27/2021 CBC w/ auto diff MCHC 35 g/dL 32-36 normal Not Available [facility] [address] [place] [address], [address], 03/27/2021 13:55:33 03/27/20 21 03/27/2021 CBC w/ auto diff RDW 12.9 % 11.0-1 5.0 normal Not Available [facility] [address] [place] [address], [address], 03/27/2021 13:55:33 03/27/20 21 03/27/2021 CBC w/ auto diff MPV 6.7 fL 6.2-10 .5 normal Not Available [facility] [address] [place] [address], [address], 03/27/2021 13:55:33 03/27/20 21 03/27/2021 CBC w/ auto diff platelet count 253 K/uL 130-40 0 normal Not Available [facility] [address] [place] [address], [address], 03/27/2021 13:55:33 03/27/20 21 03/27/2021 CBC w/ auto diff neutrophil,a bsolute 4.3 K/uL 1.6-8. 4 normal Not Available [facility] [address] [place] [address], [address], 03/27/2021 13:55:33 03/27/2003/27/2021 CBC w/ auto diff lymphocyte,a bsolute 1.9 K/uL 0.4-5. 1 normal Not Available [facility] [address] [place] [address], [address], 03/27/2021 13:55:33 03/27/20 21 03/27/2021 CBC w/ auto diff monocyte,abs olute 0.6 K/uL 0.0-1. 2 normal Not Available [facility] [address] [place] [address], [address], 03/27/2021 13:55:33 03/27/20 21 03/27/2021 CBC w/ auto diff eosinophil,a bsolute 0.1 K/uL 0.0-0. 8 normal Not Available [facility] [address] [place] [address], [address], 03/27/2021 13:55:33 03/27/20 21 03/27/2021 CBC w/ auto diff basophil,abs olute 0.0 K/uL 0.0-0. 3 normal Not Available [facility] [address] [place] [address], [address], 03/27/2021 13:55:33 03/27/20 21 03/27/2021 CBC w/ auto diff % neutrophils 62.5 % 42.0-7 8.0 normal Not Available [facility] [address] [place] [address], [address], 03/27/2021 13:55:33 03/27/20 21 03/27/2021 CBC w/ auto diff % lymphocytes 27.7 % 11.0-4 7.0 normal Not Available [facility] [address] [place] [address], [address], 03/27/2021 13:55:33 03/27/20 21 03/27/2021 CBC w/ auto diff % monocytes 8.2 % 0.0-11 .0 normal Not Available [facility] [address] [place] [address], [address], 03/27/2021 13:55:33 03/27/20 21 03/27/2021 CBC w/ auto diff % eosinophils 1.1 % 0.0-7. 0 normal Not Available [facility] [address] [place] [address] [place], [address], 03/27/2021 13:55:33 03/27/20 21 03/27/2021 CBC w/ auto diff % basophils 0.5 % 0.0-3. 0 normal Not Available [facility] [address] [place] [address], [address], 03/27/2021 13:55:33 03/27/20 21 03/27/2021 CBC w/ auto diff nucleated red cells 0.1 % 0.0-0. 9 normal Not Available [facility] [address] [place] [address], [address], 03/27/2021 13:55:33 03/27/20 21 03/27/2021 CBC w/ auto diff nucleated RBCs, absolute 0.00 K/uL not estab. normal Not Available [facility] [address] [place] [address], [address], 03/27/2021 13:55:33 03/27/20 21 03/27/2021 PT/IN R prothrombin time 11.1 secon ds 9.0-11 .4 normal PLEAS E NOTE: NEW DORON L RANGE Not Available [facility] [address] [place] [address], [address], 03/27/2021 13:28:40 03/27/20 21 03/27/2021 PT/IN R INR 1.1 2.0-3. 0 low INR OF 2.0 TO 3.0 RECOM PRAVEENA D FOR: PROPH YLAXI S AND TREAT MENT OF VENOU S THROM BOSIS TREAT MENT OF PULMO NARY EMBOL ISM PREVE NTION OF SYSTE JANEY EMBOL ISM TISSU E HEART VALVE S, VALVU LAR HEART DISEA SE ACUTE MYOCA RDIAL INFAR CTION , ATRIA L FIBRI LLATI ON INR OF 2.5 TO 3.5 RECOM PRAVEENA D FOR: RECUR RENT SYSTE JANEY EMBOL ISM MECHA NICAL PROST HETIC VALVE S Not Available [facility] [address] [place] [address], [address], 03/27/2021 13:28:40 07/08/20 21 07/10/2021 AFP, TUMOR MARKE R AFP, tumor marker 4.8 NG/mL <6.1 normal This test was perfo rmed using the [employer] Coul[employer] er chemi lumin escen t metho d. Value s obtai glenny from diffe rent assay metho ds canno t be used inter gong eably . AFP level s, regar dless of value , shoul d not be inter prete d as absol [place] evide nce of the prese nce or absen ce of disea se. TEST PERFO RMED AT: [facility] [address] [facility] [place] [address] DARIEN Gaines MD Not Available [facility] [address] [place] [address], [address], 07/10/2021 11:25:14 07/08/20 21 07/09/2021 SARS COV2 AB IGG, SPIKE sars cov2 Ab IgG, spike >20.00 index <1.00 high Refer ence Range INDEX INTER PRETA TION <1.00 Negat jorje > or = 1.00 Posit jorje This test is inten ded to help ident berta indiv idual s with antib odies to SARS- CoV-2 (COVI D-19) . The resul ts of this semi- quant itati ve test shoul d not be inter prete d as an indic ation or degre e of immun ity or prote ction from reinf ectio n. A test resul t that is 1.00 or more (Posi tive) means antib odies to SARS- CoV-2 were detec damaris in the blood sampl e by the test. This could mean that the indiv idual may have an immun e respo nse to a recen t or prior infec tion with SARS- CoV-2 . Posit jorje resul ts may occur after COVID -19 vacci natio n, but the clini devi signi fican ce of a posit jorje antib nitish resul t for indiv idual s that have recei otilia a COVID -19 vacci ne is unkno wn, and the perfo rmanc e of the test has not been estab lishe d in COVID -19 vacci nees. False posit jorje resul ts for the test may occur due to cross - react ivity from pre-e xisti ng antib odies or other possi ble cause s. A test resul t that is less than 1.00 (Nega tive) means that antib odies were not detec damaris in the blood sampl e by the test. This could mean that the indiv idual has not been previ ously infec damaris with SARS- CoV-2 . The clini devi signi fican ce of a negat jorje antib nitish resul t for indiv idual s that have recei otilia a COVID -19 vacci ne is unkno wn. The perfo rmanc e of the test has not been estab lishe d in COVID -19 vacci nees. False negat jorje resul ts for the test may occur if the indiv idual 's antib odies have not reach ed a suffi cient level for the test to be able to detec t them. Antib odies can take up to two to three weeks (some times longe r) to devel op after someo ne is infec damaris. How long antib odies to SARS- CoV-2 last after infec tion is not known . This test shoul d not be used to diagn ose an activ e SARS- CoV-2 infec tion. If an activ e infec tion is suspe cted, direc t molec ular or antig en testi ng for SARS- CoV-2 is recom praveena d. Pleas e revie w the Fact Sheet s avail able for healt hcare provi ders and patie nts using the carolyn[employer] wing websi juan: https ://lindsay w.Que stDia gnost ics.c om/ho me/Co vid-1 9/HCP /anti body/ fact- sheet 8 https ://lindsay w.Que stDia gnost ics.c om/ho me/Co vid-1 9/Pat ients / antib nitish/f act-s heet8 Healt hcare Provi ders: For addit ional infor jakob milton e refer to: http: //cesilia herring stdia gnost ics.c om/fa q/FAQ 219 (This link is being provi ded for infor jakob matthews/ educbryan perez purpo ses only. ) This test has been autho rized by the FDA under an Emerg ency Use Autho rizat ion (EUA) for use by autho rized labor atori es. The FDA autho rized label ing is avail able on the [employer] websi te: www.Q uestD iagno stics .Cater to u/ Covid 19. TEST PERFO RMED AT: [facility] [address] [facility] [place] [address] DARIEN Gaines MD Not Available [facility] [address] [place] [address], [address], 07/09/2021 15:46:11 07/08/20 21 07/09/2021 EB IA ammonia 42 umol/ L < or = 72 normal TEST PERFO RMED AT: [facility] [address] [place] [address] RACHEL JOHNSON M.D. Not Available [facility] [address] [place] [address], [phone], 07/09/2021 08:46:05 07/08/20 21 07/08/2021 COMP. METAB OLIC PANEL glucose 255 mg/dL 74-100 high Not Available [facility] [address] [place] [address], [address], 07/08/2021 13:40:23 07/08/20 21 07/08/2021 COMP. METAB OLIC PANEL blood urea nitrogen 15 mg/dL 6-20 normal Not Available [facility] [address] [place] [address], [address], 07/08/2021 13:40:23 07/08/20 21 07/08/2021 COMP. METAB OLIC PANEL creatinine 0.68 mg/dL 0.70-1 .28 low Not Available [facility] [address] [place] [address], [address], 07/08/2021 13:40:23 07/08/20 21 07/08/2021 COMP. METAB OLIC PANEL BUN/creatini ne ratio 22 (calc ) 10-20 high Not Available [facility] [address] [place] [address], [address], 07/08/2021 13:40:23 07/08/20 21 07/08/2021 COMP. METAB OLIC PANEL sodium 137 mmol/ L 136-14 5 normal Not Available [facility] [address] [place] [address], [address], 07/08/2021 13:40:23 07/08/20 21 07/08/2021 COMP. METAB OLIC PANEL potassium 4.1 mmol/ L 3.4-5. 0 normal Not Available [facility] [address] [place] [address], [address], 07/08/2021 13:40:23 07/08/20 21 07/08/2021 COMP. METAB OLIC PANEL chloride 102 mmol/ L 98-107 normal Not Available [facility] [address] [place] [address], [address], 07/08/2021 13:40:23 07/08/20 21 07/08/2021 COMP. METAB OLIC PANEL carbon dioxide 23 mmol/ L 22-31 normal Not Available [facility] [address] [place] [address], [address], 07/08/2021 13:40:23 07/08/20 21 07/08/2021 COMP. METAB OLIC PANEL anion gap 12 (calc ) 7-25 normal Not Available [facility] [address] [place] [address], [address], 07/08/2021 13:40:23 07/08/20 21 07/08/2021 COMP. METAB OLIC PANEL calcium 8.8 mg/dL 8.6-10 .2 normal Not Available [facility] [address] [place] [address], [phone], 07/08/2021 13:40:23 07/08/20 21 07/08/2021 COMP. METAB OLIC PANEL total protein 6.9 g/dL 6.4-8. 3 normal Not Available [facility] [address] [place] [address], [address], 07/08/2021 13:40:23 07/08/20 21 07/08/2021 COMP. METAB OLIC PANEL albumin 4.1 g/dL 3.5-5. 2 normal Not Available [facility] [address] [place] [address], [address], 07/08/2021 13:40:23 07/08/20 21 07/08/2021 COMP. METAB OLIC PANEL globulin 2.8 g/dL_ (calc ) 1.5-4. 5 normal Not Available [facility] [address] [place] [address], [address], 07/08/2021 13:40:23 07/08/20 21 07/08/2021 COMP. METAB OLIC PANEL albumin/glob ulin ratio 1.5 (calc ) 1.1-2. 5 normal Not Available [facility] [address] [place] [address], [address], 07/08/2021 13:40:23 07/08/20 21 07/08/2021 COMP. METAB OLIC PANEL bilirubin, total 0.5 mg/dL 0.1-1. 2 normal Not Available [facility] [address] [place] [address], [address], 07/08/2021 13:40:23 07/08/20 21 07/08/2021 COMP. METAB OLIC PANEL alkaline phosphatase 66 U/L 40-129 normal Not Available [facility] [address] [place] [address], [address], 07/08/2021 13:40:23 07/08/20 21 07/08/2021 COMP. METAB OLIC PANEL AST 19 U/L 0-40 normal Not Available [facility] [address] [place] [address], [address], 07/08/2021 13:40:23 07/08/20 21 07/08/2021 COMP. METAB OLIC PANEL ALT 25 U/L 0-41 normal Not Available [facility] [address] [place] [address], [address], 07/08/2021 13:40:23 07/08/20 21 07/08/2021 COMP. METAB OLIC PANEL GFR 112 >= 60 normal Not Available [facility] [address] [place] [address], [address], 07/08/2021 13:40:23 07/08/20 21 07/08/2021 COMP. METAB OLIC PANEL GFR non- 97 >= 60 normal NOT E Chron ic kidne y disea se is defin ed as kidne y damag e for more than 3 month s or a GFR less than 60 mL/mi n/1.7 3 m2 for great er than 3 month s. This calcu latio n has not been valid ated in pregn ant women . For pedia tric patie nts refer to Shikha Herrera Found ation https :[email or web address] rg/pr dominique ional s/KDO QI/gf r_cal culat orPed Not Available [facility] [address] [place] [address], [address], 07/08/2021 13:40:23 07/08/20 21 07/08/2021 COMPL ETE BLOOD COUNT white blood cells 7.5 K/uL 3.8-10 .8 normal Not Available [facility] [address] [place] [address], [address], 07/08/2021 13:35:26 07/08/20 21 07/08/2021 COMPL ETE BLOOD COUNT red blood cells 4.24 M/uL 4.20-5 .80 normal Not Available [facility] [address] [place] [address], [address], 07/08/2021 13:35:26 07/08/20 21 07/08/2021 COMPL ETE BLOOD COUNT hemoglobin 13.5 g/dL 14.0-1 8.0 low Not Available [facility] [address] [place] [address], [address], 07/08/2021 13:35:26 07/08/20 21 07/08/2021 COMPL ETE BLOOD COUNT hematocrit 39.0 % 40.0-5 2.0 low Not Available [facility] [address] [place] [address], [address], 07/08/2021 13:35:26 07/08/20 21 07/08/2021 COMPL ETE BLOOD COUNT MCV 92 fL 80-100 normal Not Available [facility] [address] [place] [address], [address], 07/08/2021 13:35:26 07/08/20 21 07/08/2021 COMPL ETE BLOOD COUNT MCH 32 pg 26-35 normal Not Available [facility] [address] [place] [address], [address], 07/08/2021 13:35:26 07/08/20 21 07/08/2021 COMPL ETE BLOOD COUNT MCHC 35 g/dL 32-36 normal Not Available [facility] [address] [place] [address], [address], 07/08/2021 13:35:26 07/08/20 21 07/08/2021 COMPL ETE BLOOD COUNT RDW 12.9 % 11.0-1 5.0 normal Not Available [facility] [address] [place] [address], [address], 07/08/2021 13:35:26 07/08/20 21 07/08/2021 COMPL ETE BLOOD COUNT MPV 6.7 fL 6.2-10 .5 normal Not Available [facility] [address] [place] [address], [address], 07/08/2021 13:35:26 07/08/20 21 07/08/2021 COMPL ETE BLOOD COUNT platelet count 220 K/uL 130-40 0 normal Not Available [facility] [address] [place] [address], [address], 07/08/2021 13:35:26 07/08/20 21 07/08/2021 COMPL ETE BLOOD COUNT neutrophil,a bsolute 5.0 K/uL 1.6-8. 4 normal Not Available [facility] [address] [place] [address], [address], 07/08/2021 13:35:26 07/08/20 21 07/08/2021 COMPL ETE BLOOD COUNT lymphocyte,a bsolute 2.0 K/uL 0.4-5. 1 normal Not Available [facility] [address] [place] [address], [address], 07/08/2021 13:35:26 07/08/20 21 07/08/2021 COMPL ETE BLOOD COUNT monocyte,abs olute 0.4 K/uL 0.0-1. 2 normal Not Available [facility] [address] [place] [address], [address], 07/08/2021 13:35:26 07/08/20 21 07/08/2021 COMPL ETE BLOOD COUNT eosinophil,a bsolute 0.1 K/uL 0.0-0. 8 normal Not Available [facility] [address] [place] [address], [address], 07/08/2021 13:35:26 07/08/20 21 07/08/2021 COMPL ETE BLOOD COUNT basophil,abs olute 0.1 K/uL 0.0-0. 3 normal Not Available [facility] [address] [place] [address], [address], 07/08/2021 13:35:26 07/08/20 21 07/08/2021 COMPL ETE BLOOD COUNT % neutrophils 66.4 % 42.0-7 8.0 normal Not Available [facility] [address] [place] [address], [address], 07/08/2021 13:35:26 07/08/20 21 07/08/2021 COMPL ETE BLOOD COUNT % lymphocytes 26.2 % 11.0-4 7.0 normal Not Available [facility] [address] [place] [address], [address], 07/08/2021 13:35:26 07/08/20 21 07/08/2021 COMPL ETE BLOOD COUNT % monocytes 5.8 % 0.0-11 .0 normal Not Available [facility] [address] [place] [address], [address], 07/08/2021 13:35:26 07/08/20 21 07/08/2021 COMPL ETE BLOOD COUNT % eosinophils 0.9 % 0.0-7. 0 normal Not Available [facility] [address] [place] [address], [address], 07/08/2021 13:35:26 07/08/20 21 07/08/2021 COMPL ETE BLOOD COUNT % basophils 0.7 % 0.0-3. 0 normal Not Available [facility] [address] [place] [address], [address], 07/08/2021 13:35:26 07/08/20 21 07/08/2021 COMPL ETE BLOOD COUNT nucleated red cells 0.1 % 0.0-0. 9 normal Not Available [facility] [address] [place] [address], [address], 07/08/2021 13:35:26 07/08/20 21 07/08/2021 COMPL ETE BLOOD COUNT nucleated RBCs, absolute 0.01 K/uL not estab. normal Not Available [facility] [address] [place], [address], 07/08/2021 13:35:26 07/08/20 21 07/08/2021 PROTH ROMBI N TIME prothrombin time 11.0 secon ds 9.0-11 .4 normal Not Available [facility] [address] [place] [address], [address], 07/08/2021 13:33:00 07/08/20 21 07/08/2021 PROTH ROMBI N TIME INR 1.1 2.0-3. 0 low INR OF 2.0 TO 3.0 RECOM PRAVEENA D FOR: PROPH YLAXI S AND TREAT MENT OF VENOU S THROM BOSIS TREAT MENT OF PULMO NARY EMBOL ISM PREVE NTION OF SYSTE JANEY EMBOL ISM TISSU E HEART VALVE S, VALVU LAR HEART DISEA SE ACUTE MYOCA RDIAL INFAR CTION , ATRIA L FIBRI LLATI ON INR OF 2.5 TO 3.5 RECOM PRAVEENA D FOR: RECUR RENT SYSTE JANEY EMBOL ISM MECHA NICAL PROST HETIC VALVE S Not Available [facility] [address] [place] [address], [address], 07/08/2021 13:33:00 09/30/20 21 10/02/2021 AFP, TUMOR MARKE R AFP, tumor marker 3.9 NG/mL <6.1 normal This test was perfo rmed using the [employer] an Pro V&Vt er chemi lumin escen t metho d. Value s obtai glenny from diffe rent assay metho ds canno t be used inter gong eably . AFP level s, regar dless of value , shoul d not be inter prete d as absol [place] evide nce of the prese nce or absen ce of disea se. TEST PERFO RMED AT: [facility] [place] [address] [place] [address] DARIEN Gaines MD Not Available [facility] [place], [address], 10/02/2021 12:21:06 09/30/20 21 10/02/2021 EB IA ammonia 41 umol/ L < or = 72 normal TEST PERFO RMED AT: [facility] [address] [facility] [place] [address] RACHEL JOHNSON M.D. Not Available [facility] [address] [place] [address], [address], 10/02/2021 12:01:07 09/30/20 21 09/30/2021 PROTH ROMBI N TIME prothrombin time 10.4 secon ds 9.0-11 .4 normal Not Available [facility] [address] [place] [address], [address], 09/30/2021 11:52:34 09/30/20 21 09/30/2021 PROTH ROMBI N TIME INR 1.0 2.0-3. 0 low INR OF 2.0 TO 3.0 RECOM PRAVEENA D FOR: PROPH YLAXI S AND TREAT MENT OF VENOU S THROM BOSIS TREAT MENT OF PULMO NARY EMBOL ISM PREVE NTION OF SYSTE JANEY EMBOL ISM TISSU E HEART VALVE S, VALVU LAR HEART DISEA SE ACUTE MYOCA RDIAL INFAR CTION , ATRIA L FIBRI LLATI ON INR OF 2.5 TO 3.5 RECOM PRAVEENA D FOR: RECUR RENT SYSTE JANEY EMBOL ISM MECHA NICAL PROST HETIC VALVE S Not Available [facility] [address] [place] [address], [address], 09/30/2021 11:52:34 09/30/20 21 09/30/2021 COMP. METAB OLIC PANEL glucose 166 mg/dL 74-100 high Not Available [facility] [address] [place] [address], [address], 09/30/2021 11:51:23 09/30/20 21 09/30/2021 COMP. METAB OLIC PANEL blood urea nitrogen 11 mg/dL 6-20 normal Not Available [facility] [address] [place] [address], [address], 09/30/2021 11:51:23 09/30/20 21 09/30/2021 COMP. METAB OLIC PANEL creatinine 0.60 mg/dL 0.70-1 .28 low Not Available [facility] [address] [place] [address], [address], 09/30/2021 11:51:23 09/30/20 21 09/30/2021 COMP. METAB OLIC PANEL BUN/creatini ne ratio 18 (calc ) 10-20 normal Not Available [facility] [address] [place] [address], [address], 09/30/2021 11:51:23 09/30/20 21 09/30/2021 COMP. METAB OLIC PANEL sodium 139 mmol/ L 136-14 5 normal Not Available [facility] [address] [place] [address], [address], 09/30/2021 11:51:23 09/30/20 21 09/30/2021 COMP. METAB OLIC PANEL potassium 4.6 mmol/ L 3.4-5. 0 normal Not Available [facility] [address] [place] [address], [address], 09/30/2021 11:51:23 09/30/20 21 09/30/2021 COMP. METAB OLIC PANEL chloride 100 mmol/ L 98-107 normal Not Available [facility] [address] [place] [address], [address], 09/30/2021 11:51:23 09/30/20 21 09/30/2021 COMP. METAB OLIC PANEL carbon dioxide 28 mmol/ L 22-31 normal Not Available [facility] [address] [place] [address], [address], 09/30/2021 11:51:23 09/30/20 21 09/30/2021 COMP. METAB OLIC PANEL anion gap 11 (calc ) 7-25 normal Not Available [facility] [address] [place] [address], [address], 09/30/2021 11:51:23 09/30/20 21 09/30/2021 COMP. METAB OLIC PANEL calcium 9.3 mg/dL 8.6-10 .2 normal Not Available [facility] [address] [place] [address], [address], 09/30/2021 11:51:23 09/30/20 21 09/30/2021 COMP. METAB OLIC PANEL total protein 7.0 g/dL 6.4-8. 3 normal Not Available [facility] [address] [place] [address], [address], 09/30/2021 11:51:23 09/30/20 21 09/30/2021 COMP. METAB OLIC PANEL albumin 4.6 g/dL 3.5-5. 2 normal Not Available [facility] [address] [place] [address], [address], 09/30/2021 11:51:23 09/30/20 21 09/30/2021 COMP. METAB OLIC PANEL globulin 2.4 g/dL_ (calc ) 1.5-4. 5 normal Not Available [facility] [address] [place] [address], [address], 09/30/2021 11:51:23 09/30/20 21 09/30/2021 COMP. METAB OLIC PANEL albumin/glob ulin ratio 1.9 (calc ) 1.1-2. 5 normal Not Available [facility] [address] [place] [address], [address], 09/30/2021 11:51:23 09/30/20 21 09/30/2021 COMP. METAB OLIC PANEL bilirubin, total 0.4 mg/dL 0.1-1. 2 normal Not Available [facility] [address] [place] [address], [address], 09/30/2021 11:51:23 09/30/20 21 09/30/2021 COMP. METAB OLIC PANEL alkaline phosphatase 76 U/L 40-129 normal Not Available [facility] [address] [place] [address], [address], 09/30/2021 11:51:23 09/30/20 21 09/30/2021 COMP. METAB OLIC PANEL AST 25 U/L 0-40 normal Not Available [facility] [address] [place] [address], [address], 09/30/2021 11:51:23 09/30/20 21 09/30/2021 COMP. METAB OLIC PANEL ALT 33 U/L 0-41 normal Not Available [facility] [address] [place] [address], [address], 09/30/2021 11:51:23 09/30/20 21 09/30/2021 COMP. METAB OLIC PANEL GFR 118 >= 60 normal Not Available [facility] [address] [place] [address], [address], 09/30/2021 11:51:23 09/30/20 21 09/30/2021 COMP. METAB OLIC PANEL GFR non- 101 >= 60 normal NOT E Chron ic kidne y disea se is defin ed as kidne y damag e for more than 3 month s or a GFR less than 60 mL/mi n/1.7 3 m2 for great er than 3 month s. This calcu latio n has not been valid ated in pregn ant women . For pedia tric patie nts refer to Natio nal Kidne y Found ation https :[email or web address] rg/pr ofess ional s/KDO QI/gf r_cal culat orPed Not Available [facility] [address] [place] [address], [address], 09/30/2021 11:51:23 09/30/20 21 09/30/2021 COMPL ETE BLOOD COUNT white blood cells 6.7 K/uL 3.8-10 .8 normal Not Available [facility] [address] [place] [address], [address], 09/30/2021 11:49:21 09/30/20 21 09/30/2021 COMPL ETE BLOOD COUNT red blood cells 4.41 M/uL 4.20-5 .80 normal Not Available [facility] [address] [place] [address], [address], 09/30/2021 11:49:21 09/30/20 21 09/30/2021 COMPL ETE BLOOD COUNT hemoglobin 14.6 g/dL 14.0-1 8.0 normal Not Available [facility] [address] [place] [address], [address], 09/30/2021 11:49:21 09/30/20 21 09/30/2021 COMPL ETE BLOOD COUNT hematocrit 41.1 % 40.0-5 2.0 normal Not Available [facility] [address] [place] [address], [address], 09/30/2021 11:49:21 09/30/20 21 09/30/2021 COMPL ETE BLOOD COUNT MCV 93 fL 80-100 normal Not Available [facility] [address] [place] [address], [address], 09/30/2021 11:49:21 09/30/20 21 09/30/2021 COMPL ETE BLOOD COUNT MCH 33 pg 26-35 normal Not Available [facility] [address] [place] [address], [address], 09/30/2021 11:49:21 09/30/20 21 09/30/2021 COMPL ETE BLOOD COUNT MCHC 36 g/dL 32-36 normal Not Available [facility] [address] [place] [address], [address], 09/30/2021 11:49:21 09/30/20 21 09/30/2021 COMPL ETE BLOOD COUNT RDW 12.9 % 11.0-1 5.0 normal Not Available [facility] [address] [place] [address], [address], 09/30/2021 11:49:21 09/30/20 21 09/30/2021 COMPL ETE BLOOD COUNT MPV 6.7 fL 6.2-10 .5 normal Not Available [facility] [address] [place] [address], [address], 09/30/2021 11:49:21 09/30/20 21 09/30/2021 COMPL ETE BLOOD COUNT platelet count 243 K/uL 130-40 0 normal Not Available [facility] [address] [place] [address], [address], 09/30/2021 11:49:21 09/30/20 21 09/30/2021 COMPL ETE BLOOD COUNT neutrophil,a bsolute 4.2 K/uL 1.6-8. 4 normal Not Available [facility] [address] [place] [address], [address], 09/30/2021 11:49:21 09/30/20 21 09/30/2021 COMPL ETE BLOOD COUNT lymphocyte,a bsolute 1.8 K/uL 0.4-5. 1 normal Not Available [facility] [address] [place] [address], [address], 09/30/2021 11:49:21 09/30/20 21 09/30/2021 COMPL ETE BLOOD COUNT monocyte,abs olute 0.5 K/uL 0.0-1. 2 normal Not Available [facility] [address] [place] [address], [address], 09/30/2021 11:49:21 09/30/20 21 09/30/2021 COMPL ETE BLOOD COUNT eosinophil,a bsolute 0.1 K/uL 0.0-0. 8 normal Not Available [facility] [address] [place] [address], [address], 09/30/2021 11:49:21 09/30/20 21 09/30/2021 COMPL ETE BLOOD COUNT basophil,abs olute 0.0 K/uL 0.0-0. 3 normal Not Available [facility] [address] [place] [address], [address], 09/30/2021 11:49:21 09/30/20 21 09/30/2021 COMPL ETE BLOOD COUNT % neutrophils 63.0 % 42.0-7 8.0 normal Not Available [facility] [address] [place] [address], [address], 09/30/2021 11:49:21 09/30/20 21 09/30/2021 COMPL ETE BLOOD COUNT % lymphocytes 27.4 % 11.0-4 7.0 normal Not Available [facility] [address] [place] [address], [address], 09/30/2021 11:49:21 09/30/20 21 09/30/2021 COMPL ETE BLOOD COUNT % monocytes 8.0 % 0.0-11 .0 normal Not Available [facility] [address] [place] [address], [address], 09/30/2021 11:49:21 09/30/20 21 09/30/2021 COMPL ETE BLOOD COUNT % eosinophils 1.0 % 0.0-7. 0 normal Not Available [facility] [address] [place] [address], [address], 09/30/2021 11:49:21 09/30/20 21 09/30/2021 COMPL ETE BLOOD COUNT % basophils 0.6 % 0.0-3. 0 normal Not Available [facility] [address] [place] [address], [address], 09/30/2021 11:49:21 09/30/20 21 09/30/2021 COMPL ETE BLOOD COUNT nucleated red cells 0.1 % 0.0-0. 9 normal Not Available [facility] [address] [place] [address], [address], 09/30/2021 11:49:21 09/30/20 21 09/30/2021 COMPL ETE BLOOD COUNT nucleated RBCs, absolute 0.00 K/uL not estab. normal Not Available [facility] [address] [place] [address], [address], 09/30/2021 11:49:21 03/02/20 23 03/04/2023 AFP, TUMOR MARKE R AFP, tumor marker 3.4 NG/mL <6.1 normal This test was perfo rmed using the App[employer] er chemi lumin escen t metho d. Value s obtai glenny from diffe rent assay metho ds canno t be used inter gong eably . AFP level s, regar dless of value , shoul d not be inter prete d as absol [place] evide nce of the prese nce or absen ce of disea se. TEST PERFO RMED AT: [facility] [place] [address] [place], [place] [phone] ANTHO NY V RON S Not Available [facility] [address] [place] [address], [address], 03/05/2023 11:29:02 03/02/20 23 03/02/2023 COMP. METAB OLIC PANEL glucose 178 mg/dL 74-100 high Not Available [facility] [address] [place] [address], [address], 03/02/2023 16:19:13 03/02/20 23 03/02/2023 COMP. METAB OLIC PANEL blood urea nitrogen 22 mg/dL 6-20 high Not Available [facility] [address] [place] [address], [address], 03/02/2023 16:19:13 03/02/20 23 03/02/2023 COMP. METAB OLIC PANEL creatinine 0.81 mg/dL 0.70-1 .28 normal Not Available [facility] [address] [place] [address], [address], 03/02/2023 16:19:13 03/02/20 23 03/02/2023 COMP. METAB OLIC PANEL BUN/creatini ne ratio 27 (calc ) 10-20 high Not Available [facility] [address] [place] [address], [address], 03/02/2023 16:19:13 03/02/20 23 03/02/2023 COMP. METAB OLIC PANEL sodium 137 mmol/ L 136-14 5 normal Not Available [facility] [address] [place] [address], [address], 03/02/2023 16:19:13 03/02/20 23 03/02/2023 COMP. METAB OLIC PANEL potassium 4.2 mmol/ L 3.4-5. 0 normal Not Available [facility] [address] [place] [address], [address], 03/02/2023 16:19:13 03/02/20 23 03/02/2023 COMP. METAB OLIC PANEL chloride 102 mmol/ L 98-107 normal Not Available [facility] [address] [place] [address], [address], 03/02/2023 16:19:13 03/02/20 23 03/02/2023 COMP. METAB OLIC PANEL carbon dioxide 24 mmol/ L 22-31 normal Not Available [facility] [address] [place] [address], [address], 03/02/2023 16:19:13 03/02/20 23 03/02/2023 COMP. METAB OLIC PANEL anion gap 11 (calc ) 7-25 normal Not Available [facility] [address] [place] [address], [address], 03/02/2023 16:19:13 03/02/20 23 03/02/2023 COMP. METAB OLIC PANEL calcium 9.4 mg/dL 8.6-10 .2 normal Not Available [facility] [address] [place] [address], [address], 03/02/2023 16:19:13 03/02/20 23 03/02/2023 COMP. METAB OLIC PANEL total protein 7.2 g/dL 6.4-8. 3 normal Not Available [facility] [address] [place] [address], [address], 03/02/2023 16:19:13 03/02/20 23 03/02/2023 COMP. METAB OLIC PANEL albumin 4.4 g/dL 3.5-5. 2 normal Not Available [facility] [address] [place] [address], [address], 03/02/2023 16:19:13 03/02/20 23 03/02/2023 COMP. METAB OLIC PANEL globulin 2.8 g/dL_ (calc ) 1.5-4. 5 normal Not Available [facility] [address] [place] [address], [address], 03/02/2023 16:19:13 03/02/20 23 03/02/2023 COMP. METAB OLIC PANEL albumin/glob ulin ratio 1.6 (calc ) 1.1-2. 5 normal Not Available [facility] [address] [place] [address], [address], 03/02/2023 16:19:13 03/02/20 23 03/02/2023 COMP. METAB OLIC PANEL bilirubin, total 0.4 mg/dL 0.1-1. 2 normal Not Available [facility] [address] [place] [address], [address], 03/02/2023 16:19:13 03/02/20 23 03/02/2023 COMP. METAB OLIC PANEL alkaline phosphatase 71 U/L 40-129 normal Not Available [facility] [address] [place] [address], [address], 03/02/2023 16:19:13 03/02/20 23 03/02/2023 COMP. METAB OLIC PANEL AST 19 U/L 0-40 normal Not Available [facility] [address] [place], [address], 03/02/2023 16:19:13 03/02/20 23 03/02/2023 COMP. METAB OLIC PANEL ALT 22 U/L 0-41 normal Not Available [facility] [address] [place], [address], 03/02/2023 16:19:13 03/02/20 23 03/02/2023 COMP. METAB OLIC PANEL GFR 94 >= 60 normal NOT E New calcu latio n for GFR (CKD- EPI 2020) is formu lated witho ut race adjus tment facto rs at the recom menda tion of the [employer] Tobin y Found ation and Ameri can [place] ty of Nephr ology . This calcu latio n has not been valid ated in pregn ant women . For pedia tric patie nts refer to https :[email or web address] rg/pr ofess ional s/KDO QI/gf r_cal culat orPed Not Available [facility] [address] [place], [address], 03/02/2023 16:19:13 03/02/20 23 03/02/2023 PROTH ROMBI N TIME prothrombin time 10.8 secon ds 9.4-11 .0 normal Not Available [facility] [address] [place], [id number], 03/02/2023 13:03:44 03/02/20 23 03/02/2023 PROTH ROMBI N TIME INR 1.1 2.0-3. 0 low INR OF 2.0 TO 3.0 RECOM PRAVEENA D FOR: PROPH YLAXI S AND TREAT MENT OF VENOU S THROM BOSIS TREAT MENT OF PULMO NARY EMBOL ISM PREVE NTION OF SYSTE JANEY EMBOL ISM TISSU E HEART VALVE S, VALVU LAR HEART DISEA SE ACUTE MYOCA RDIAL INFAR CTION , ATRIA L FIBRI LLATI ON INR OF 2.5 TO 3.5 RECOM PRAVEENA D FOR: RECUR RENT SYSTE JANEY EMBOL ISM MECHA NICAL PROST HETIC VALVE S Not Available [facility] [address] [place] [address], [id number], 03/02/2023 13:03:44 03/02/20 23 03/02/2023 COMPL ETE BLOOD COUNT white blood cells 10.7 K/uL 3.8-10 .8 normal Not Available [facility] [address] [place] [address], [phone], 03/02/2023 12:44:02 03/02/20 23 03/02/2023 COMPL ETE BLOOD COUNT red blood cells 4.71 M/uL 4.20-5 .80 normal Not Available [facility] [address] [place] [address], [address], 03/02/2023 12:44:02 03/02/20 23 03/02/2023 COMPL ETE BLOOD COUNT hemoglobin 14.0 g/dL 14.0-1 8.0 normal Not Available [facility] [address] [place] [address], [address], 03/02/2023 12:44:02 03/02/20 23 03/02/2023 COMPL ETE BLOOD COUNT hematocrit 41.7 % 40.0-5 2.0 normal Not Available [facility] [address] [place] [address], [address], 03/02/2023 12:44:02 03/02/20 23 03/02/2023 COMPL ETE BLOOD COUNT MCV 89 fL 80-100 normal Not Available [facility] [address] [place] [address], [address], 03/02/2023 12:44:02 03/02/20 23 03/02/2023 COMPL ETE BLOOD COUNT MCH 30 pg 26-35 normal Not Available [facility] [address] [place] [address], [address], 03/02/2023 12:44:02 03/02/20 23 03/02/2023 COMPL ETE BLOOD COUNT MCHC 34 g/dL 32-36 normal Not Available [facility] [address] [place] [address], [address], 03/02/2023 12:44:02 03/02/20 23 03/02/2023 COMPL ETE BLOOD COUNT RDW 14.2 % 11.0-1 5.0 normal Not Available [facility] [address] [place] [address], [address], 03/02/2023 12:44:02 03/02/20 23 03/02/2023 COMPL ETE BLOOD COUNT MPV 6.5 fL 6.2-10 .5 normal Not Available [facility] [address] [place] [address], [address], 03/02/2023 12:44:02 03/02/20 23 03/02/2023 COMPL ETE BLOOD COUNT platelet count 268 K/uL 130-40 0 normal Not Available [facility] [address] [place] [address], [address], 03/02/2023 12:44:02 03/02/20 23 03/02/2023 COMPL ETE BLOOD COUNT neutrophil,a bsolute 7.8 K/uL 1.6-8. 4 normal Not Available [facility] [address] [place] [address], [address], 03/02/2023 12:44:02 03/02/20 23 03/02/2023 COMPL ETE BLOOD COUNT lymphocyte,a bsolute 2.0 K/uL 0.4-5. 1 normal Not Available [facility] [address] [place] [address], [address], 03/02/2023 12:44:02 03/02/20 23 03/02/2023 COMPL ETE BLOOD COUNT monocyte,abs olute 0.8 K/uL 0.0-1. 2 normal Not Available [facility] [address] [place] [address], [address], 03/02/2023 12:44:02 03/02/20 23 03/02/2023 COMPL ETE BLOOD COUNT eosinophil,a bsolute 0.1 K/uL 0.0-0. 8 normal Not Available [facility] [address] [place] [address], [address], 03/02/2023 12:44:02 03/02/20 23 03/02/2023 COMPL ETE BLOOD COUNT basophil,abs olute 0.1 K/uL 0.0-0. 3 normal Not Available [facility] [address] [place] [address], [address], 03/02/2023 12:44:02 03/02/20 23 03/02/2023 COMPL ETE BLOOD COUNT % neutrophils 72.9 % 42.0-7 8.0 normal Not Available [facility] [address] [place] [address], [address], 03/02/2023 12:44:02 03/02/20 23 03/02/2023 COMPL ETE BLOOD COUNT % lymphocytes 18.9 % 11.0-4 7.0 normal Not Available [facility] [address] [place] [address], [address], 03/02/2023 12:44:02 03/02/20 23 03/02/2023 COMPL ETE BLOOD COUNT % monocytes 7.1 % 0.0-11 .0 normal Not Available [facility] [address] [place] [address], [address], 03/02/2023 12:44:02 03/02/20 23 03/02/2023 COMPL ETE BLOOD COUNT % eosinophils 0.6 % 0.0-7. 0 normal Not Available [facility] [address] [place] [address], [address], 03/02/2023 12:44:02 03/02/20 23 03/02/2023 COMPL ETE BLOOD COUNT % basophils 0.5 % 0.0-3. 0 normal Not Available [facility] [address] [place], [address], 03/02/2023 12:44:02 03/02/20 23 03/02/2023 COMPL ETE BLOOD COUNT nucleated red cells 0.0 % 0.0-0. 9 normal Not Available [facility] [address] [place], [address], 03/02/2023 12:44:02 03/02/20 23 03/02/2023 COMPL ETE BLOOD COUNT nucleated RBCs, absolute 0.00 K/uL not estab. normal Not Available [facility] [address] [place] [address], [address], 03/02/2023 12:44:02 11/03/19 24 11/05/2023 AFP, TUMOR MARKE R AFP, tumor marker 4.1 NG/mL <6.1 normal This test was perfo rmed using the [employer] SCI er chemi lumin escen t metho d. Value s obtai glenny from diffe rent assay metho ds canno t be used inter gong eay . AFP level s, regar dless of value , shoul d not be inter prete d as absol [place] evide nce of the prese nce or absen ce of disea se. Not Available [facility] [place], [address], 11/05/2023 10:19:31 11/03/19 24 11/04/2023 EB IA ammonia 30 umol/ L < or = 72 normal Not Available [facility] [address] [place], [address], 11/04/2023 08:03:04 11/03/19 24 11/03/2023 PROTH ROMBI N TIME prothrombin time 11.2 secon ds 9.4-11 .0 high Not Available [facility] [address] [place], [address], 11/03/2023 15:52:44 11/03/19 24 11/03/2023 PROTH ROMBI N TIME INR 1.1 2.0-3. 0 low INR OF 2.0 TO 3.0 RECOM PRAVEENA D FOR: PROPH YLAXI S AND TREAT MENT OF VENOU S THROM BOSIS TREAT MENT OF PULMO NARY EMBOL ISM PREVE NTION OF SYSTE JANEY EMBOL ISM TISSU E HEART VALVE S, VALVU LAR HEART DISEA SE ACUTE MYOCA RDIAL INFAR CTION , ATRIA L FIBRI LLATI ON INR OF 2.5 TO 3.5 RECOM PRAVEENA D FOR: RECUR RENT SYSTE JANEY EMBOL ISM MECHA NICAL PROST HETIC VALVE S Not Available [facility] [address] [place] [address], [address], 11/03/2023 15:52:44 11/03/19 24 11/03/2023 COMP. METAB OLIC PANEL glucose 150 mg/dL 74-100 high Not Available [facility] [address] [place] [address], [address], 11/03/2023 15:21:03 11/03/19 24 11/03/2023 COMP. METAB OLIC PANEL blood urea nitrogen 14 mg/dL 6-20 normal Not Available [facility] [address] [place] [address], [address], 11/03/2023 15:21:03 11/03/19 24 11/03/2023 COMP. METAB OLIC PANEL creatinine 0.69 mg/dL 0.70-1 .28 low Not Available [facility] [address] [place] [address], [address], 11/03/2023 15:21:03 11/03/19 24 11/03/2023 COMP. METAB OLIC PANEL BUN/creatini ne ratio 20 (calc ) 10-20 normal Not Available [facility] [address] [place] [address], [address], 11/03/2023 15:21:03 11/03/19 24 11/03/2023 COMP. METAB OLIC PANEL sodium 138 mmol/ L 136-14 5 normal Not Available [facility] [address] [place] [address], [address], 11/03/2023 15:21:03 11/03/19 24 11/03/2023 COMP. METAB OLIC PANEL potassium 3.7 mmol/ L 3.4-5. 0 normal Not Available [facility] [address] [place] [address], [address], 11/03/2023 15:21:03 11/03/19 24 11/03/2023 COMP. METAB OLIC PANEL chloride 101 mmol/ L 98-107 normal Not Available [facility] [address] [place] [address], [address], 11/03/2023 15:21:03 11/03/19 24 11/03/2023 COMP. METAB OLIC PANEL carbon dioxide 28 mmol/ L 22-31 normal Not Available [facility] [address] [place] [address], [address], 11/03/2023 15:21:03 11/03/19 24 11/03/2023 COMP. METAB OLIC PANEL anion gap 9 (calc ) 7-25 normal Not Available [facility] [address] [place] [address], [address], 11/03/2023 15:21:03 11/03/19 24 11/03/2023 COMP. METAB OLIC PANEL calcium 9.0 mg/dL 8.6-10 .2 normal Not Available [facility] [address] [place] [address], [address], 11/03/2023 15:21:03 11/03/19 24 11/03/2023 COMP. METAB OLIC PANEL total protein 7.5 g/dL 6.4-8. 3 normal Not Available [facility] [address] [place] [address], [address], 11/03/2023 15:21:03 11/03/19 24 11/03/2023 COMP. METAB OLIC PANEL albumin 3.6 g/dL 3.5-5. 2 normal Not Available [facility] [address] [place] [address], [address], 11/03/2023 15:21:03 11/03/19 24 11/03/2023 COMP. METAB OLIC PANEL globulin 3.9 1.5-4. 5 normal Not Available [facility] [address] [place] [address], [address], 11/03/2023 15:21:03 11/03/19 24 11/03/2023 COMP. METAB OLIC PANEL albumin/glob ulin ratio 0.9 (calc ) 1.1-2. 5 low Not Available [facility] [address] [place] [address], [address], 11/03/2023 15:21:03 11/03/19 24 11/03/2023 COMP. METAB OLIC PANEL bilirubin, total 0.4 mg/dL 0.1-1. 2 normal Not Available [facility] [address] [place] [address], [address], 11/03/2023 15:21:03 11/03/19 24 11/03/2023 COMP. METAB OLIC PANEL alkaline phosphatase 95 U/L 40-129 normal Not Available [facility] [address] [place] [address], [address], 11/03/2023 15:21:03 11/03/19 24 11/03/2023 COMP. METAB OLIC PANEL AST 20 U/L 0-40 normal Not Available [facility] [address] [place] [address], [address], 11/03/2023 15:21:03 11/03/19 24 11/03/2023 COMP. METAB OLIC PANEL ALT 17 U/L 0-41 normal Not Available [facility] [address] [place] [address], [address], 11/03/2023 15:21:03 11/03/19 24 11/03/2023 COMP. METAB OLIC PANEL GFR 98 >= 60 normal NOT E New calcu latio n for GFR (CKD- EPI 2020) is formu lated witho ut race adjus tment facto rs at the recom menda tion of the [employer] ation and Don Shie ty of Nephr ology . This calcu latio n has not been valid ated in pregn ant women . For pedia tric patie nts refer to https ://lindsay w.dalia childress.o rg/pr ofess ional s/KDO QI/gf r_cal culat orPed Not Available [facility] [address] [place] [address], [address], 11/03/2023 15:21:03 11/03/19 24 11/03/2023 IRON PANEL -TOTA L AND TIBC iron 68 ug/dL 59-158 normal Not Available [facility] [address] [place] [address], [address], 11/03/2023 15:21:02 11/03/19 24 11/03/2023 IRON PANEL -TOTA L AND TIBC total iron binding cap. 342 ug/dL _(devi c) 250-45 0 normal Not Available [facility] [address] [place] [address], [address], 11/03/2023 15:21:02 11/03/19 24 11/03/2023 IRON PANEL -TOTA L AND TIBC unsat.iron binding cap. 274 ug/dL 112-34 7 normal Not Available [facility] [address] [place] [address], [address], 11/03/2023 15:21:02 11/03/19 24 11/03/2023 IRON PANEL -TOTA L AND TIBC % saturation 20 %_(ca lc) 20-50 normal Not Available [facility] [address] [place] [address], [address], 11/03/2023 15:21:02 11/03/19 24 11/03/2023 SHIRLENE TIN ferritin 87 NG/mL 30-400 normal Not Available [facility] [address] [place] [address], [address], 11/03/2023 15:21:00 11/03/19 24 11/03/2023 COMPL ETE BLOOD COUNT white blood cells 8.4 10*3/ uL 3.8-10 .8 normal Not Available [facility] [address] [place] [address], [address], 11/03/2023 15:09:12 11/03/19 24 11/03/2023 COMPL ETE BLOOD COUNT red blood cells 4.05 10*6/ uL 4.20-5 .80 low Not Available [facility] [address] [place] [address], [address], 11/03/2023 15:09:12 11/03/19 24 11/03/2023 COMPL ETE BLOOD COUNT hemoglobin 12.5 g/dL 14.0-1 8.0 low Not Available [facility] [address] [place] [address], [address], 11/03/2023 15:09:12 11/03/19 24 11/03/2023 COMPL ETE BLOOD COUNT hematocrit 36.9 % 40.0-5 2.0 low Not Available [facility] [address] [place] [address], [address], 11/03/2023 15:09:12 11/03/19 24 11/03/2023 COMPL ETE BLOOD COUNT MCV 91 fL 80-100 normal Not Available [facility] [address] [place] [address], [address], 11/03/2023 15:09:12 11/03/19 24 11/03/2023 COMPL ETE BLOOD COUNT MCH 31 pg 26-35 normal Not Available [facility] [address] [place] [address], [address], 11/03/2023 15:09:12 11/03/19 24 11/03/2023 COMPL ETE BLOOD COUNT MCHC 34 g/dL 32-36 normal Not Available [facility] [address] [place] [address], [address], 11/03/2023 15:09:12 11/03/19 24 11/03/2023 COMPL ETE BLOOD COUNT RDW 14.0 % 11.0-1 5.0 normal Not Available [facility] [address] [place] [address], [address], 11/03/2023 15:09:12 11/03/19 24 11/03/2023 COMPL ETE BLOOD COUNT MPV 6.0 fL 6.2-10 .5 low Not Available [facility] [address] [place] [address], [address], 11/03/2023 15:09:12 11/03/19 24 11/03/2023 COMPL ETE BLOOD COUNT platelet count 369 10*3/ uL 150-40 0 normal Not Available [facility] [address] [place] [address], [address], 11/03/2023 15:09:12 11/03/19 24 11/03/2023 COMPL ETE BLOOD COUNT neutrophil,a bsolute 5.5 10*3/ uL 1.6-8. 4 normal Not Available [facility] [address] [place] [address], [address], 11/03/2023 15:09:12 11/03/19 24 11/03/2023 COMPL ETE BLOOD COUNT lymphocyte,a bsolute 2.0 10*3/ uL 0.4-5. 1 normal Not Available [facility] [address] [place] [address], [address], 11/03/2023 15:09:12 11/03/19 24 11/03/2023 COMPL ETE BLOOD COUNT monocyte,abs olute 0.6 10*3/ uL 0.0-1. 2 normal Not Available [facility] [address] [place] [address], [address], 11/03/2023 15:09:12 11/03/19 24 11/03/2023 COMPL ETE BLOOD COUNT eosinophil,a bsolute 0.2 10*3/ uL 0.0-0. 8 normal Not Available [facility] [address] [place] [address], [address], 11/03/2023 15:09:12 11/03/19 24 11/03/2023 COMPL ETE BLOOD COUNT basophil,abs olute 0.1 10*3/ uL 0.0-0. 3 normal Not Available [facility] [address] [place] [address], [address], 11/03/2023 15:09:12 11/03/19 24 11/03/2023 COMPL ETE BLOOD COUNT % neutrophils 66.2 % 42.0-7 8.0 normal Not Available [facility] [address] [place] [address], [address], 11/03/2023 15:09:12 11/03/19 24 11/03/2023 COMPL ETE BLOOD COUNT % lymphocytes 23.5 % 11.0-4 7.0 normal Not Available [facility] [address] [place] [address], [address], 11/03/2023 15:09:12 11/03/19 24 11/03/2023 COMPL ETE BLOOD COUNT % monocytes 7.1 % 0.0-11 .0 normal Not Available [facility] [address] [place] [address], [address], 11/03/2023 15:09:12 11/03/19 24 11/03/2023 COMPL ETE BLOOD COUNT % eosinophils 2.0 % 0.0-7. 0 normal Not Available [facility] [address] [place] [address], [address], 11/03/2023 15:09:12 11/03/19 24 11/03/2023 COMPL ETE BLOOD COUNT % basophils 1.2 % 0.0-3. 0 normal Not Available [facility] [address] [place], [address], 11/03/2023 15:09:12 11/03/19 24 11/03/2023 COMPL ETE BLOOD COUNT nucleated red cells 0.0 % 0.0-0. 9 normal Not Available [facility] [address] [place], [address], 11/03/2023 15:09:12 11/03/19 24 11/03/2023 COMPL ETE BLOOD COUNT nucleated RBCs, absolute 0.00 10*3/ uL not estab. normal Not Available [facility] [address] [place], [address], 11/03/2023 15:09:12 Result Notes None recorded. Problems Name Problem SNOMED Code Status Onset Date Resolution Date Notes Provider Name and Address Organization Details Recorded Time Abnormal weight loss 871072190 Active 2015 From Automated Load;Provi jess: Heather Portillo;Sta tus: Active Not Available [facility] 6 03:55:20 Constipat ion 52113201 Active 2015 From Automated Load;Provi jess: Heather Portillo;Sta tus: Active Not Available [facility] 6 03:55:20 Abdominal pain 65850355 Active 2015 From Automated Load;Provi jess: Heather Portillo;Sta tus: Active Not Available [facility] 6 03:55:21 Nonalcoho lic steatohep atitis 930741610 Active 2015 From Automated Load;Provi jess: Heather Portillo;Sta tus: Active Not Available [facility] 6 03:55:21 Cirrhosis of liver 41430266 Active 2015 From Automated Load;Provi jess: Heather Portillo;Sta tus: Active Not Available [facility] 6 03:55:21 Pulmonary emphysema 79117028 Active 2017 NYASIA FOLEY MD [address] [place], [address] , [facility] 8 15:57:50 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 Procedures Surgical History Date Name Laterality Status Provider Name and Address Organization Details Recorded Time 11/24/19 18 [place]way [place] [facility] [place]2017 14:39:33 11/24/19 18 Diffusion Capacity [place] [facility] [place] 14:39:27 11/24/19 18 Lung Volumes, Plethysmography [place] [facility] [place]2017 14:39:22 11/24/19 18 Spirometry with Bronchodilator [place] [facility] [place] 15:20:08 Imaging Results None recorded. Procedure Notes None recorded. Medical Equipment None Reported. Allergies No known drug allergies Medications Name Sig Start Date Stop Date Status Note LastModified by Organization Details LastModified Time atorvasta tin 20 mg tablet qod active Instruct ions: in midafter noon, for lipids.; Frequenc y: daily;Me dication Descript ion: atorvast atin; Dosage:1 ; Route:or al; refills: 4; Quantity :90 tablet Not Available Not Available Not Available lisinopri l 20 mg tablet Bedtime qod active Duration : 30 days;Marquis quency: hs;Medic ation Descript ion: lisinopr il; Dosage:1 ; Route:or al; refills: 5; Quantity :30 tablet Not Available Not Available Not Available fexofenad ine 180 mg tablet TAKE 1 TABLET BY MOUTH EVERY DAY active Not Available Not Available No t Available OneTouch Ultra Test strips As Directed 2011 active Instruct ions: Check BG an average of twice daily, for diabetes .;Freque ncy: as direct.; Medicati on Descript ion: Supplies ; Dosage:1 ; refills: 12; Quantity :100 Not Available Not Available Not Available Lipoic Acid 100 mg capsule 2 daily active Medicati on Descript ion: alpha-li poic acid; Route:or al; refills: 0 Not Available Not Available Not Available albuterol sulfate HFA 90 mcg/actua tion aerosol inhaler INHALE 2 PUFFS BY MOUTH EVERY 4 HOURS NEEDED active Not Available Not Available No t Available ipratropi um bromide 42 mcg (0.06 %) nasal spray USE 2 SPRAYS IN EACH NOSTRIL THREE TIMES DAILY NEEDED 2017 active Not Available Not Available Not Avai lable fluticaso ne propionat e 50 mcg/actua tion nasal spray,etta pension SHAKE LIQUID AND USE 1 SPRAY IN EACH NOSTRIL TWICE DAILY active Not Available Not Available No t Available amoxicill in 875 mg-potass ium clavulana te 125 mg tablet Take 1 tablet every 12 hours by oral route for 14 days. 03/02 completed Not Available Not Available Not Available Lexapro 10 mg tablet Daily active Duration : 30 days;Marquis quency: daily;Me dication Descript ion: escitalo pram; Dosage:1 ; Route:or al; refills: 5; Quantity :30 tablet Not Available Not Available Not Available levothyro xine 125mcg active Medicati on Descript ion: levothyr oxine; refills: 0 Not Available Not Available Not Available buspirone active Medicati on Descript ion: buspiron e; refills: 0 Not Available Not Available Not Available metformin 750 mg bid 2013 active Instruct ions: in midafter noon, for diabetes .;Freque ncy: daily;Me dication Descript ion: metformi n; Dosage:1 ; Route:or al; refills: 4; Quantity :90 tablet, extended release Not Available Not Available Not Available Konsyl Fiber As Directed active Instruct ions: in glass of sugar-fr ee cranbeer y juice q2-3d.;F requency : as direct.; Medicati on Descript ion: psyllium ; Dosage:2 ; Route:or al; refills: 0; Quantity :otc Not Available Not Available Not Available vitamin E 15 unit/0.3 mL oral drops active Medicati on Descript ion: vitamin E; Route:or al; refills: 0; Quantity :1 capsule Not Available Not Available Not Available Symbicort 80 mcg-4.5 mcg/actua tion HFA aerosol inhaler Inhale 2 puffs twice a day by inhalati on route. 2017 active Not Available Not Available Not Sophie miles Extentabs 48.6 mg-0.3111 mg-0.0582 mg tablet,ex tended release Two times a day 11/24 completed Frequenc y: bid;Medi cation Descript ion: atropine /hyoscya mine/PB/ scopolam ine; Dosage:1 ; Route:or al; refills: 0; Quantity :60 tablet, extended release Not Available Not Available Not Available Humalog Mix 75-25 KwikPen U-100 insulin 100 unit/mL subcutane ous pen As Directed 2013 active Duration : 90 days;Ins truction s: Inject 80 units right before breakfas t & 80 units right before supper, for diabetes ..;Frequ ency: as direct.; Medicati on Descript ion: insulin lispro-i nsulin lispro protamin e; Dosage:a s directed ; Route:brunson bcutaneo us; refills: 0; Quantity :2 suspensi on Not Available Not Available Not Available Neilmed Sinus Rinse Complete with packet as directed 2017 active Not Available Not Available Not Avbraeden Delgado Delica Lancets 33 gauge As Directed 2011 active Instruct ions: Check BG an average of twice daily, for diabetes .;Freque ncy: as direct.; Medicati on Descript ion: Supplies ; Dosage:1 ; refills: 7; Quantity :100 Not Available Not Available Not Available Spiriva Respimat 2.5 mcg/actua tion solution for inhalatio n Inhale 2 puffs every day by inhalati on route. 2017 active Not Available Not Available Not Avai labclem Vitals Date Recorded Body height Body mass index (BMI) Body weight Heart rate Oxygen saturation Oxygen saturation in Arterial blood by Pulse oximetry Respiratory rate Systolic blood pressure Diastolic blood pressure Provider Name and Address Organization Details Last Updated DateTime 8 190.5 cm 36.2 kg/m2 756357. 79 g 90 /min 96 % 96 % 16 /min 150 mm[Hg] 80 mm[Hg] Tina Cee [facility] 8 14:01:23 Date Recorded Body height Body mass index (BMI) Body weight Respiratory rate Heart rate Oxygen saturation Oxygen saturation in Arterial blood by Pulse oximetry Systolic blood pressure Diastolic blood pressure Provider Name and Address Organization Details Last Updated DateTime 8 190.5 cm 37.2 kg/m2 714562. 53 g 16 /min 82 /min 95 % 95 % 140 mm[Hg] 80 mm[Hg] [facility] 8 11:08:51 Date Recorded Body height Body mass index (BMI) Body weight Respiratory rate Heart rate Oxygen saturation Oxygen saturation in Arterial blood by Pulse oximetry Systolic blood pressure Diastolic blood pressure Provider Name and Address Organization Details Last Updated DateTime 8 190.5 cm 37.4 kg/m2 408477. 12 g 16 /min 92 /min 95 % 95 % 140 mm[Hg] 80 mm[Hg] [facility] 8 14:03:41 Social History Question Answer Notes LastModified by Organizat ion Details LastModified Time Tobacco Smoking Status [email or web address]2017 14:22:29 When Did You Quit Smoking? 16+yearssin celastcigar ette Quit Age 26 [email or web address] Information not available 11/24/2017 Marijuana Yes [email or web address] Information n ot available 11/24/2017 What Was The Date Of Your Most Recent Tobacco Screening? 03/02/2018 Information not available 12/12/2019 How Much Tobacco Do You Smoke? 2 PPD [email or web address] Information not available 11/24/2017 How Many Years Have You Smoked Tobacco? 13 [email or web address] Information not available 11/24/2017 Sex: Unknown Functional Status None recorded. Mental Status None recorded. Family History Nothing Reported Notes:Alpha 1 father,sister Medical History Condition Response Diabetes Y Allergies/Hayfever Y Thyroid Disorder Y High Cholesterol Y Cirrhosis Y Asthma Y Immunizations Vaccine Type Date Status Note Provider Nam e and Address Organization Details Recorded Time Influenza, split virus, quadrivalent, preservative 7 completed Tina Cee [facility] 11/24/2017 14:21:07 Past Encounters Encounter ID Performer Location Encounter Start Date Encounter Closed Date Diagnosis/Indication Diagnosis SNOMED-CT Code Diagnosis ICD10 Code Diagnosis Note [id number] NYASIA FOLEY MD PULMONARY [address] [facility], [address] [place], [place] [id number] 11/24/2017 13:44:52 11/26/2017 12:33:13 Amcic-9-wphtglgxehu deficiency [id number] E88.01 MZ. Level 108. Needs Annual Spirometry and LFTs. A decline of FEV1 > 100 ml/year would indicate need to start replacemen t therapy. Last LFTs in 09/2017. Chronic cough [id number] R 05 Chronic bronchitis vs UACS. Pulmonary emphysema 8743 3001 J43.9 Hard to say if he is more asthmatic bronchitis or copd/emphy sema. I have given him samples of spiriva and symbicort and he will try 2 weeks of each to see if either works better for him. [id number] NYASIA FOLEY MD PULMONARY [address] [facility], [place] [id number] 12/22/2017 10:52:37 12/22/2017 15:49:31 Whjys-2-xohibaqoyde deficiency [id number] E88.01 MZ. Level 108. Needs Annual Spirometry and LFTs. A decline of FEV1 > 100 ml/year would indicate need to start replacemen t therapy. LFTs normal in 11/2017 with exception of ALT 55. No indication for replacemen t therapy at this time. [place] and LFTs ~ october 2018. Chronic cough [id number] R 05 Mostly due to UACS. Will focus on more sinus therapy. Pulmonary emphysema 8743 3001 J43.9 He thought both spiriva and symbicort samples helped some, but couldn't tell how they helped.. and then he noticed no change when he stopped them. I will not start either one right now. I'll try spiriva again once his sinuses are better treated. Chronic sinusitis 983857 00 J32.9 Cont flonase and ipra and humaira, adding sinus rinse and 2 weeks amox clav. good but not complete response. [id number] NYASIA FOLEY MD PULMONARY [address] [place] [address], [address] [place] [address] 03/02/2018 13:39:50 2018 07:32:01 Chronic sinusitis 43511610 J32.9 Cont flonase and ipra and humaira and sinus rinse. Great Response. Chronic cough 57175686 R 05 Mostly due to UACS. Resolved Alpha-1-an titrypsin deficiency [id number] E88.01 MZ. Level 108. Needs Annual Spirometry and LFTs. A decline of FEV1 > 100 ml/year would indicate need to start replacemen t therapy. LFTs normal in 11/2017 with exception of ALT 55. Got hepatitis vaccines. No indication for replacemen t therapy at this time. Mark and LFTs ~ october 2018. Pulmonary emphysema 8743 3001 J43.9 He doesn't want to start spiriva at this time give the dramatic improvemen t in breathing with sinus control. Health Concerns Section Related Observation LastModified by Organization Detai ls LastModified Time None Recorded Concern Status LastModified by Organization Details LastModified Time None Recorded Advance Directives Directive None Recorded Payers Encounter Date Sequence Insurance Name Policy Number Policy Saez Covered Member ID Saez Member ID Guarantor Name 11/24/2017 1 MEDICARE-8hands (MEDICARE) Leonardo Gaines True [id number] Leonardo S True 11/24/2017 2 [employer] Patterson S True [id number] Leonardo S True 12/22/2017 1 MEDICARE-8hands (MEDICARE) Leonardo S True [id number] Leonardo S True 12/22/2017 2 [employer] Patterson S True [id number] Leonardo S True 03/02/2018 1 MEDICARE-8hands (MEDICARE) Leonardo S True [id number] Leonardo S True 03/02/2018 2 [employer] Patterson S True [id number] Leonardo S True Notes Date Note Type Note Provider Name and Address Organization Details Recorded Time 11/24/2017 text/html Leonardo Dozier a 67-year-old white male with a history of alpha-1 antitrypsin deficiency who previously seen Dr. Baker 5 years ago. He comes in today for new patient evaluation for concerns that his apple one has gotten worse. After [place] [facility] [place] he developed what he describes as a chest cold that continued to plague him off and on for the last 3 months. He finally feels he's gotten back to his baseline over the last 2 weeks. He was treated with amoxicillin at the store and felt he didn't get much relief from that. 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 Very rare wheeze associated with it. He has sporadic cough that was sometimes productive of white sputum. He couldn't figure any specific triggers but notes that it is worse with cold and he does have increased sensitivity to noxious vapors such as pollution. It has been associated with the globus sensation. 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 He uses when necessary Flonase for it. He been told he had asthma as a kid. He is not on a maintenance inhaler. He smoked for a handful of years during college but stopped in his early 20s. His sister just got a liver transplant for alpha-1 deficiency and his dad from lung disease related to it. NYASIA FOLEY MD [facility] [place], [address], Critical access hospital 11/25/2017 08:36:24 12/22/2017 text/html Leonardo comes back to follow-up chronic cough and A1AT deficiency. He has had significant improvement in his cough since he last saw me. He has less postnasal drip and for the first time in many years he says he no longer has sinus headaches and pressure. He did a trial of Spiriva followed by a trial of Symbicort to see if either helped his breathing. He says that he thought both helped but he could not elaborate on how they helped. He also said he couldn't tell which helped more. He stopped taking the Symbicort couple days ago and didn't notice any real change after stopping the Symbicort. He generally does not feel short of breath. his cough still bothersome and it's more of a constant throat clearing, but is much less frequent and significant than it used to be. He also asked about if he needs to start replacement therapy for his alpha-1 antitrypsin disease. He has a sister who recently had to get a liver transplant due to alpha-1 antitrypsin deficiency[place], [address], Critical access hospital 12/22/2017 14:05:26 03/02/2018 text/html Leonardo is doing very well. He says he hasn't felt this good in several years. His cough completely resolved with his nose spray treatments and now he just uses no spray and sinus rinse each night. He is not using any inhalers. He can run up a flight or 2 of stairs and he can talk without dyspnea now. Fever very rarely needs to use his albuterol. No chest pain, no palpitations, no fever, no chills, no night sweats. NYASIA FOLEY MD [address] [place], [address], Critical access hospital 2018 07:11:37
--- OUTSIDE RECORDS SUMMARY | 2025-02-01 21:44 | XMS_ITS | Clinical Summary ---
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 Name Role Phone Tiffany SCHMITT, Nikolai Collins Unavailable [phone] Festus Huitron MD Unavailable [phone] Reason for Visit and Chief Complaint The Chief Complaint is: Left knee Problems Includes: Problems addressed during this encounter and other active Problems All Visits Onset Date Resolved Date Provider Condition S tatus Joint Pain, Localized in the Left Shoulder 11/01/2024 Britni Cutler PA-C Active Last Documented On 5 8:57AM ; [facility] Joint Pain in the Right Knee 11/13/2021 Leta Allen MD Active Last Documented On 2 10:34AM ; [facility], [facility] Plan of Treatment Fall Risk Assessment: [...] with the patient. - Last Documented On 08/04/2023 1:40PM ; [facility], [facility] NON-SURGICAL PLAN: CAN CALL FOR LEFT KNEE INJECTIONS PRN PAIN SURGICAL PLAN: CAN CALL TO SCHEDULE LEFT TKA. MUST SEE DR. Bae PRIOR TO SURGERY. [facility] - Last Documented On 08/04/2023 1:40PM ; [facility], [facility] PCP CLEARANCE FOLLOW UP: 1 YEAR XOA - Last Documented On 08/04/2023 1:40PM ; [facility] Pending Tests Order Diagnosis Results Due Ordering Palmira [facility] - Aspiration Aspiration 07/23/22 Nikolai teresa MD Last Documented On 2 3:01PM ; [facility], [facility] Instructions to patient Lose weight Last Documented On 3 9:11AM ; [facility], [facility] Assessments Includes: Assessments from this encounter Findings - Overweight - Last Documented On 08/04/2023 1:40PM ; [facility], [facility] 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 SEVERE L KNEE DJD WELL CONTROLLED BY INJECTION WITH WHITNEY ANA LUISA. - Last Documented On 08/04/2023 1:40PM ; [facility], [facility] Instructions Includes: Instructions from this encounter Instructions to patient Lose weight Last Documented On 3 9:11AM ; [facility], [facility] Medical Equipment - Implanted Devices Includes: Current Devices No Medical Equipment Recorded Medications Includes: Medications discussed during this encounter and other current Medications Current Medications (continue as prescribed) Ozempic (0.25 or 0.5 MG/DOSE ) 2 MG/3ML Subcutaneous Solution Pen-injector 07/26/2024 Provider: Diagnosis: Last Documented On 4 10:39AM By Kelsey Parisi ; [facility] Mupirocin 2% External Ointment 07/21/2023 Provider: Mainor Sargent MD Diagnosis: Last Documented On 3 9:11AM By Julianna Saba ; [facility], [facility] HumaLOG Mix 75/25 KwikPen (7 5-25) 100 UNIT/ML Subcutaneous Suspension Pen-injector 07/19/2023 Provider: James Huitron MD Diagnosis: Last Documented On 3 3:35PM By Julianna Saba ; [facility], [facility] Sulfamethoxazole-Trimethoprim 800-160 MG Oral Tablet 0 07/19/2023 Provider: Diagnosis: Last Documented On 3 9:11AM By Julianna Saba ; [facility], [facility] metroNIDAZOLE 500 MG Oral Tablet 07/19/2023 Provider : Diagnosis: Last Documented On 3 9:11AM By Julianna Saba ; [facility], [facility] ALPRAZolam 0.5 MG Oral Tablet 07/11/2023 Provider: Festus Huitron MD Diagnosis: Last Documented On 3 9:11AM By Julianna Saba ; [facility], [facility] Meloxicam 15 MG Oral Tablet 07/09/2023 Provider: Festus Huitron MD Diagnosis: Last Documented On 3 9:11AM By Julianna Saba ; [facility], [facility] Diclofenac Sodium 1% External Gel 07/08/2023 Provide r: Marquez Landa MD Diagnosis: Last Documented On 3 9:11AM By Julianna Saba ; [facility], [facility] Lisinopril 20 MG Oral Tablet 06/30/2023 Provider: Festus Huitron MD Diagnosis: Last Documented On 3 3:35PM By Julianna Saba ; [facility], [facility] Past Medications on file traMADol HCl 50 MG Oral Tablet 12/15/2022 - 12/20/2022 Provider: Nikolai teresa MD Diagnosis: 1-2 po q 4-6h Last Documented On 3 11:51AM By Sourav Allen ; [facility], [facility] HYDROcodone-Acetaminophen 10 -325 MG Oral Tablet 12/15/2022 - 12/25/2022 Provider: Nikolai Allen MD Diagnosis: [id number] Last Documented On 3 2:08PM By Sourav Allen ; [facility], [facility] Ondansetron HCl 4 MG Oral Tablet 12/07/2022 - 12/12/2022 Provider: Nikolai Allen MD Diagnosis: [id number] Last Documented On 3 9:56AM By Dottie Acosta ; [facility], [facility] MS Contin 15 MG Oral Tablet Extended Release 11/24/2022 - 12/01/2022 Provider: Nikolai Allen MD Diagnosis: 1 tab every 12 hours Last Documented On 3 11:22AM By Sourav Allen ; [facility], [facility] HYDROcodone-Acetaminophen 10 -325 MG Oral Tablet 11/24/2022 - 12/04/2022 Provider: Nikolai Allen MD Diagnosis: 1-2 po q 4-6h Last Documented On 3 11:21AM By Sourav Allen ; [facility], [facility] Ondansetron HCl 4 MG Oral Tablet 11/24/2022 - 11/29/2022 Provider: Nikolai Allen MD Diagnosis: 6rsw1-4h Last Documented On 3 11:21AM By Sourav Allen ; [facility], [facility] Meloxicam 15 MG Oral Tablet 11/24/2022 - 12/24/2022 Provider: Nikolai teresa MD Diagnosis: once a day Last Documented On 3 11:21AM By Sourav Allen ; [facility], [facility] Colace 100 MG Oral Capsule 11/24/2022 - 02/22/2023 Provider: Nikolai teresa MD Diagnosis: 1-2 tabs daily Last Documented On 3 11:21AM By Sourav Allen ; [facility], [facility] Cefadroxil 500 MG Oral Capsule 11/24/2022 - 11/27/2022 Provider: Nikolai teresa MD Diagnosis: twice a day Last Documented On 3 11:21AM By Sourav Allen ; [facility], [facility] Aspirin 81 MG Oral Tablet Delayed Release 11/24/2022 - 03/30/2023 Provider: Nikolai Allen MD Diagnosis: twice a day Last Documented On 3 11:21AM By Sourav Allen ; [facility], [facility] traMADol HCl 50 MG Oral Tablet 11/24/2022 - 11/29/2022 Provider: Nikolai teresa MD Diagnosis: 1-2 po q 4-6h Last Documented On 3 11:21AM By Sourav Allen ; [facility], [facility] Vitamin D3 50 MCG (1999) Oral Tablet 11/03/2022 - 12/03/2022 Provider: Carrie PABLO Diagnosis: once a day Last Documented On 2:43PM By Carrie Sandoval ; [facility], [facility] Medications Administered Includes: Administered Medications from this encounter No Administered Medications Recorded Vital Signs Includes: Vital Signs from this encounter Vital Name 07/29/2023 09:11A Height (in) 76 Weight (lb) 225 Body Mass Index 27.4 Body Surface Area 2.3 Note: ck Last Documented: On 07/29/2023 9:11AM ; [facility], [facility] Results Includes: Results discussed during this encounter No Results Recorded For Specified Dates History of Present Illness Includes: History of Present Illness from this encounter ANTHONY Dozier is a 73 year old male. - Symptoms popping injections makes pain better. - Allergy list reviewed - Problem list reviewed - Medication list reviewed - Previous history of new onset pain Injury is not work related or an automotive accident - Gradual onset - Pain is occasional (25% of the time) - Patient pain level from 1-10: was 0 3 - Yes, previous treatment. Dr Wiley - History of Physical Therapy [facility] Physical Therapy - History of Injections Cortisone Social History Description Last Updated Exercising regularly 03/04/2023 Last Documented On 3 8:54AM ; [facility], [facility] Tobacco non-user 02/19/2023 Last Documented On 3 8:54AM ; [facility], [facility] Not a current smoker. 02/19/2023 Last Documented On 3 8:54AM ; [facility], [facility] Non-smoker 11/13/2021 Last Documented On 3 8:54AM ; [facility] Caffeine use 11/13/2021 Last Documented On 3 8:54AM ; [facility], [facility] No recent change in diet 11/13/2021 Last Documented On 3 8:54AM ; [facility], [facility] Not using alcohol 11/13/2021 Last Documented On 3 8:54AM ; [facility], [facility] Not using drugs 11/13/2021 Last Documented On 3 8:54AM ; [facility], [facility] Smoking Status Unknown Procedures and Surgical History Includes: Procedures from this encounter Procedures Code Diagnosis Performing Provider Service L ocation Service Date use of tobacco assessment performed 1000F Last Documented On 3 9:11AM ; [facility], [facility] patient screened for future fall risk: documentation of any fall with injury in past year 1100F Last Documented On 3 9:11AM ; [facility], [facility] review of medications documented 1160F Last Documented On 3 9:11AM ; [facility], [facility] an X-ray was performed [facility] 07/29/23 [id number] Last Documented On 3 9:28AM ; [facility], [facility] Surgical History Last Updated History of total knee arthroplasty 12/15 Last Documented On 3 8:54AM ; [facility], [facility] Medical History Includes: Medical History addressed during this encounter Description Last Updated History of arthritis 12/15/2022 Last Documented On 3 8:54AM ; [facility], [facility] History of diverticulitis of colon 12/15 Last Documented On 3 8:54AM ; [facility], [facility] History of Liver Disease 12/15/2022 Last Documented On 3 8:54AM ; [facility], [facility] History of diabetes mellitus 11/13/2021 Last Documented On 3 8:54AM ; [facility], [facility] History of Sleep Apnea 11/13/2021 Last Documented On 3 8:54AM ; [facility], [facility] Past Surgical History: 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 11/13/2021 Last Documented On 3 8:54AM ; [facility], [facility] Recent immunization for flu 06/25/2021 Last Documented On 3 8:54AM ; [facility], [facility] Recent immunization for pneumococcal pne umonia 06/25/2021 11/13/2021 Last Documented On 3 8:54AM ; [facility], [facility] Past medical and surgical history non-co ntributory 11/13/2021 Last Documented On 3 8:54AM ; [facility], [facility] Family History Includes: Family History addressed during this encounter Description Last Updated Diabetes mellitus 12/15/2022 Last Documented On 3 8:54AM ; [facility], [facility] Family history of cancer 12/15/2022 Last Documented On 3 8:54AM ; [facility], [facility] No significant family history 11/13/2021 Last Documented On 3 8:54AM ; [facility], [facility] Review of Systems Includes: Review of [...] No heartburn. Abdominal pain. No Indigestion, no Acid Reflux, no Peptic Ulcer, no GI Stomach Bleed, and no Ulcers. Endocrine: No hot flashes and no muscle weakness. Diabetes. No Hypothyroid and no Hyperthyroid. Hematologic: No easy bleeding, no tendency for easy bruising, and no Anemia. Musculoskeletal: Arthritis. No lower back pain. No soft tissue swelling and no localized joint pain. Neurological: No dizziness, no convulsions, and no numbness. Psychological: No anxiety, no emotional lability, no depression, and no insomnia. Not crying for no reason. Skin: No dry skin. No Ulcers, no Scars, and no rash. Allergic and Immunologic: No complaint of seasonal allergic reaction. Mental Status Includes: Mental Status from this encounter Description No anxiety Functional Status Includes: Functional Status from this encounter No Functional Status Recorded Physical Exam Includes: Physical Exam from this encounter Allergies Includes: Active Allergies No Known Allergies Encounters Encounter Provider Location Date Check-In Time Check-Out Time Diagnosis NEW PROBLEM/EST PT Nikolai Allen MD [facility] 023 8:53AM 9:37AM Overweight Insurance Includes: Active Insurance Policies Plan Name Member ID Group # Subscriber Relationship Effect jorje Dates 1 - Medicare Part B [facility] [id number] Leonardo S True Self 10/25/2020 - Un known 2 - [employer] [place] [id number] Leonardo S True Self 10/25/2020 - Unknown Clinical Notes Includes: Clinical Notes from this encounter * Progress note Date Encounter Last Documented by 07/29/2023 NEW PROBLEM/EST PT Last document ed on 08/04/2023; 1:40 PM, Nikolai Allen MD; [facility], [facility] Active Problems & Conditions - Joint Pain in the Right Knee Subjective Which knee or hip hurts the most? Where on the hip or knee? Left knee Have you had prior knee or hip surgery? R TKA What medicines have you taken for the pain? hydrocodone, tylenol 3 What injections have you tried for the pain? csi Do you need a cane or walker to ambulate? no Have you improved your shoes or tried a brace? knee sleeve - helps Have you tried to lose weight? no Chief Complaint The Chief Complaint is: Left knee. Referred Here Referred by self. History of Present Illness Leonardo Dozier is a 73 year old male. - Symptoms popping injections makes pain better. - Allergy list reviewed - Problem list reviewed - Medication list reviewed - Previous history of new onset pain Injury is not work related or an automotive accident - Gradual onset - Pain is occasional (25% of the time) - Patient pain level from 1-10: was 0 3 - Yes, previous treatment. Dr Wiley - History of Physical Therapy [facility] - History of Injections Cortisone Current Medication - ALPRAZolam 0.5 MG Oral [...] External Ointment 30 days, 0 refills - Sulfamethoxazole-Trimethoprim 800-160 MG Oral Tablet 10 days, 0 refills Past Medical/Surgical History Reported: Immunization History: Recent immunization for flu 06/25/2021 [...] No heartburn. Abdominal pain. No Indigestion, no Acid Reflux, no Peptic Ulcer, no GI Stomach Bleed, and no Ulcers. Endocrine: No hot flashes and no muscle weakness. Diabetes. No Hypothyroid and no Hyperthyroid. Hematologic: No easy bleeding, no tendency for easy bruising, and no Anemia. Musculoskeletal: Arthritis. No lower back pain. No soft tissue swelling and no localized joint pain. Neurological: No dizziness, no convulsions, and no numbness. Psychological: No anxiety, no emotional lability, no depression, and no insomnia. Not crying for no reason. Skin: No dry skin. No Ulcers, no Scars, and no rash. Allergic and Immunologic: No complaint of seasonal allergic reaction. 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 SEVERE L KNEE DJD WELL CONTROLLED BY INJECTION WITH WHITNEY ANA LUISA. Previous Tests Imaging: X-Ray: An X-ray was performed [facility] 07/29/23. Counseling/Education - Lose weight Plan Fall Risk Assessment: This patient has [...] been discussed with the patient. NON-SURGICAL PLAN: CAN CALL FOR LEFT KNEE INJECTIONS PRN PAIN SURGICAL PLAN: CAN CALL TO SCHEDULE LEFT TKA. MUST SEE DR. Bae PRIOR TO SURGERY. [facility] PCP CLEARANCE FOLLOW UP: 1 YEAR XOA Notes This dictation was done with voice recognition software and may contain errors and omissions. Practice Management Use of tobacco assessment performed and patient screened for future fall risk documentation of any fall with injury in past year Review of medications documented. Care Team - Festus Huitron MD
--- OUTSIDE RECORDS SUMMARY | 2025-02-01 21:44 | XMS_ITS | Clinical Summary ---
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 Name Role Phone Tiffany SCHMITT, Nikolai Collins Unavailable + [phone] Tomy SCHMITT, Festus Unavailable [phone] Reason for Visit and Chief Complaint The Chief Complaint is: Left knee Problems Includes: Problems addressed during this encounter and other active Problems All Visits Onset Date Resolved Date Provider Condition S tatus Joint Pain, Localized in the Left Shoulder 11/01/2024 Britni Cutler PA-C Active Last Documented On 5 8:57AM ; [facility] Joint Pain in the Right Knee 11/13/2021 Leta Allen MD Active Last Documented On 2 10:34AM ; [facility] Plan of Treatment Fall Risk Assessment: [...] with the patient. - Last Documented On 07/29/2023 8:18AM ; [facility] Pending Tests Order Diagnosis Results Due Ordering Palmira Allen Labs - Aspiration Aspiration 07/23/22 Nikolai teresa MD Last Documented On 2 3:01PM ; [facility], [facility] Assessments Includes: Assessments from this encounter No Assessments Recorded Medical Equipment - Implanted Devices Includes: Current Devices No Medical Equipment Recorded Medications Includes: Medications discussed during this encounter and other current Medications Discontinued / Stopped on this date Festus Huitron MD on 07/13/2022 Esomeprazole Magnesium 40 MG Oral Capsule Delayed Release Provider: Festus Huitron MD Diagnosis: Last Documented On 3 3:35PM By Julianna Saba ; [facility], [facility] Lisinopril 10 MG Oral Tablet Provider: Festus Huitron MD Diagnosis: Last Documented On 3 3:35PM By Julianna Saba ; [facility], [facility] Zolpidem Tartrate 10 MG Oral Tablet Provi jess: Festus Huitron MD Diagnosis: Last Documented On 3 3:35PM By Julianna Saba ; [facility], [facility] Rosuvastatin Calcium 10 MG Oral Tablet Pr ovider: Festus Huitron MD Diagnosis: Last Documented On 3 3:35PM By Julianna Saba ; [facility], [facility] Insulin Lispro Prot & Lispro (75-25) 100 UNIT/ML Subcutaneous Suspension Pen-injector Provider: James Huitron MD Diagnosis: Last Documented On 3 3:35PM By Julianna Saba ; [facility], [facility] HYDROcodone-Acetaminophen 10 -325 MG Oral Tablet Provider: Marquez Landa MD Diagnosis: Last Documented On 3 3:35PM By Julianna Saba ; [facility], [facility] ALPRAZolam 0.5 MG Oral Tablet Provider: Festus Huitron MD Diagnosis: Last Documented On 3 3:35PM By Julianna Saba ; [facility], [facility] Current Medications (continue as prescribed) Ozempic (0.25 or 0.5 MG/DOSE ) 2 MG/3ML Subcutaneous Solution Pen-injector 07/26/2024 Provider: Diagnosis: Last Documented On 4 10:39AM By Kelsey Parisi ; [facility], [facility] Mupirocin 2% External Ointment 07/21/2023 Provider: Mainor Sargent MD Diagnosis: Last Documented On 3 9:11AM By Julianna Saba ; [facility], [facility] HumaLOG Mix 75/25 KwikPen (7 5-25) 100 UNIT/ML Subcutaneous Suspension Pen-injector 07/19/2023 Provider: James Huitron MD Diagnosis: Last Documented On 3 3:35PM By Julianna Saba ; [facility], [facility] Sulfamethoxazole-Trimethoprim 800-160 MG Oral Tablet 0 07/19/2023 Provider: Diagnosis: Last Documented On 3 9:11AM By Julianna Saba ; [facility], [facility] metroNIDAZOLE 500 MG Oral Tablet 07/19/2023 Provider : Diagnosis: Last Documented On 3 9:11AM By Julianna Saba ; [facility], [facility] ALPRAZolam 0.5 MG Oral Tablet 07/11/2023 Provider: Festus Huitron MD Diagnosis: Last Documented On 3 9:11AM By Julianna Saba ; [facility], [facility] Meloxicam 15 MG Oral Tablet 07/09/2023 Provider: Festus Huitron MD Diagnosis: Last Documented On 3 9:11AM By Julianna Saba ; [facility], [facility] Diclofenac Sodium 1% External Gel 07/08/2023 Provide r: Marquez Landa MD Diagnosis: Last Documented On 3 9:11AM By Julianna Saba ; [facility], [facility] Lisinopril 20 MG Oral Tablet 06/30/2023 Provider: Festus Huitron MD Diagnosis: Last Documented On 3 3:35PM By Julianna Saba ; [facility], [facility] Past Medications on file traMADol HCl 50 MG Oral Tablet 12/15/2022 - 12/20/2022 Provider: Nikolai teresa MD Diagnosis: 1-2 po q 4-6h Last Documented On 3 11:51AM By Sourav Allen ; [facility], [facility] HYDROcodone-Acetaminophen 10 -325 MG Oral Tablet 12/15/2022 - 12/25/2022 Provider: Nikolai Allen MD Diagnosis: [id number] Last Documented On 3 2:08PM By Sourav Allen ; [facility], [facility] Ondansetron HCl 4 MG Oral Tablet 12/07/2022 - 12/12/2022 Provider: Nikolai Allen MD Diagnosis: [id number] Last Documented On 3 9:56AM By Dottie Acosta ; [facility], [facility] MS Contin 15 MG Oral Tablet Extended Release 11/24/2022 - 12/01/2022 Provider: Nikolai Allen MD Diagnosis: 1 tab every 12 hours Last Documented On 3 11:22AM By Sourav Allen ; [facility], [facility] HYDROcodone-Acetaminophen 10 -325 MG Oral Tablet 11/24/2022 - 12/04/2022 Provider: Nikolai Allen MD Diagnosis: 1-2 po q 4-6h Last Documented On 3 11:21AM By Sourav Allen ; [facility], [facility] Ondansetron HCl 4 MG Oral Tablet 11/24/2022 - 11/29/2022 Provider: Nikolai Allen MD Diagnosis: [id number] Last Documented On 3 11:21AM By Sourav Allen ; [facility], [facility] Meloxicam 15 MG Oral Tablet 11/24/2022 - 12/24/2022 Provider: Nikolai teresa MD Diagnosis: once a day Last Documented On 3 11:21AM By Sourav Allen ; [facility], [facility] Colace 100 MG Oral Capsule 11/24/2022 - 02/22/2023 Provider: Nikolai teresa MD Diagnosis: 1-2 tabs daily Last Documented On 3 11:21AM By Sourav Allen ; [facility], [facility] Cefadroxil 500 MG Oral Capsule 11/24/2022 - 11/27/2022 Provider: Nikolai teresa MD Diagnosis: twice a day Last Documented On 3 11:21AM By Sourav Allen ; [facility], [facility] Aspirin 81 MG Oral Tablet Delayed Release 11/24/2022 - 03/30/2023 Provider: Nikolai Allen MD Diagnosis: twice a day Last Documented On 3 11:21AM By Sourav Allen ; [facility], [facility] traMADol HCl 50 MG Oral Tablet 11/24/2022 - 11/29/2022 Provider: Nikolai teresa MD Diagnosis: 1-2 po q 4-6h Last Documented On 3 11:21AM By Sourav Allen ; [facility], [facility] Vitamin D3 50 MCG (1999 [place]) Oral Tablet 11/03/2022 - 12/03/2022 Provider: Carrie PABLO Diagnosis: once a day Last Documented On 3 2:43PM By Carrie Sandoval ; [facility], [facility] Medications Administered Includes: Administered Medications from this encounter No Administered Medications Recorded Vital Signs Includes: Vital Signs from this encounter Vital Name 07/28/2023 03:41P Height (in) 76 Weight (lb) 225 Body Mass Index 27.4 Body Surface Area 2.3 Note: ck Last Documented: On 07/28/2023 3:41PM ; [facility], [facility] Results Includes: Results discussed during this encounter No Results Recorded For Specified Dates History of Present Illness Includes: History of Present Illness from this encounter ANTHONY Dozier is a 73 year old male. - Symptoms medication makes symptoms better. - Allergy list reviewed - Problem list reviewed - Medication list reviewed - Patient pain level from 1-10: was 0 0 - History of Physical Therapy [facility] - History of Injections Cortisone - No previous treatment. Medications used for this condition: Social History Description Last Updated Exercising regularly 03/04/2023 Last Documented On 3 3:35PM ; [facility], [facility] Tobacco non-user 02/19/2023 Last Documented On 3 3:35PM ; [facility], [facility] Not a current smoker. 02/19/2023 Last Documented On 3 3:35PM ; [facility] Non-smoker 11/13/2021 Last Documented On 3 3:35PM ; [facility], [facility] Caffeine use 11/13/2021 Last Documented On 3 3:35PM ; [facility], [facility] No recent change in diet 11/13/2021 Last Documented On 3 3:35PM ; [facility], [facility] Not using alcohol 11/13/2021 Last Documented On 3 3:35PM ; [facility], [facility] Not using drugs 11/13/2021 Last Documented On 3 3:35PM ; [facility], [facility] Smoking Status Unknown Procedures and Surgical History Includes: Procedures from this encounter Procedures Code Diagnosis Performing Provider Service L ocation Service Date an X-ray was performed 09517 Last Documented On 3 3:42PM ; [facility], [facility] Surgical History Last Updated History of total knee arthroplasty 12/15 Last Documented On 3 3:35PM ; [facility], [facility] Medical History Includes: Medical History addressed during this encounter Description Last Updated History of arthritis 12/15/2022 Last Documented On 3 3:35PM ; [facility], [facility] History of diverticulitis of colon 12/15 Last Documented On 3 3:35PM ; [facility] History of Liver Disease 12/15/2022 Last Documented On 3 3:35PM ; [facility], [facility] History of diabetes mellitus 11/13/2021 Last Documented On 3 3:35PM ; [facility] History of Sleep Apnea 11/13/2021 Last Documented On 3 3:35PM ; [facility], [facility] Past Surgical History: 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 11/13/2021 Last Documented On 3 3:35PM ; [facility], [facility] Recent immunization for flu 06/25/2021 Last Documented On 3 3:35PM ; [facility] Recent immunization for pneumococcal pne umonia 06/25/2021 11/13/2021 Last Documented On 3 3:35PM ; [facility], [facility] Past medical and surgical history non-co ntributory 11/13/2021 Last Documented On 3 3:35PM ; [facility], [facility] Family History Includes: Family History addressed during this encounter Description Last Updated Diabetes mellitus 12/15/2022 Last Documented On 3 3:35PM ; [facility], [facility] Family history of cancer 12/15/2022 Last Documented On 3 3:35PM ; [facility], [facility] Review of Systems Includes: Review [...] Location Date Check-In Time Check-Out Time Diagnosis Intake Nikolai Allen MD 07/28/2023 3:34PM 11:59PM Insurance Includes: Active Insurance Policies Plan Name Member ID Group # Subscriber Relationship Effect jorje Dates 1 - Medicare Part B [facility] [id number] Leonardo S True Self 10/25/2020 - Un known 2 - [employer] [id number] Leonardo S True Self 10/25/2020 - Unknown Clinical Notes Includes: Clinical Notes from this encounter * Progress note Date Encounter Last Documented by 07/28/2023 Intake Last documented on 07/29/2023; 8:18 AM, Nikolai Allen MD; [facility], [facility] Active Problems & Conditions - Joint Pain in the Right Knee Subjective Which knee or hip hurts the most? Where on the hip or knee? Have you had prior knee or hip surgery? What medicines have you taken for the pain? What injections have you tried for the pain? Do you need a cane or walker to ambulate? Have you improved your shoes or tried a brace? Have you tried to lose weight? Chief Complaint The Chief Complaint is: Left knee. History of Present Illness Leonardo Dozier is a 73 year old male. - Symptoms medication makes symptoms better. - Allergy list reviewed - Problem list reviewed - Medication list reviewed - Patient pain level from 1-10: was 0 0 - History of Physical Therapy [facility] - History of Injections Cortisone - No previous treatment. Medications used for this condition: Current Medication - HumaLOG Mix 75/25 KwikPen (75-25) 100 UNIT/ML Subcutaneous Suspension Pen- injector use as directed 81 days, 0 refills - Lisinopril 20 MG Oral Tablet use as directed 90 days, 0 refills Past Medical/Surgical History Reported: [...] - No Known Allergies Family History Cancer Diabetes mellitus Review Of Systems Systemic: Not [...] allergic reaction. Physical Findings - Vitals taken 07/28/2023 03:41 pm ck Height 76 in Weight 225 lbs Body Mass Index 27.4 kg/m2 Body Surface Area 2.3 m2 Previous Tests Imaging: X-Ray: An X-ray was performed. Plan Fall Risk Assessment: This patient has [...] therapy has been discussed with the patient. Notes This dictation was done with voice recognition software and may contain errors and omissions. Care Team - Festus Huitron MD
--- OUTSIDE RECORDS SUMMARY | 2025-02-01 21:44 | XMS_ITS ---
Author Organization [facility] Address [address] [place] [address] Phone Care Team Providers [employer] Salesperson Name Role Phone Tiffany SCHMITT, Nikolai Collins Unavailable [phone] Tomy SCHMITT, Festus Unavailable [phone] Problems Includes: Active, inactive, and resolved Problems All Visits Onset Date Resolved Date Provider Condition S tatus Joint Pain, Localized in the Left Shoulder 11/01/2024 Britni Cutler PA-C Active Last Documented On 5 8:57AM ; [facility] Joint Pain in the Right Knee 11/13/2021 Leta Allen MD Active Last Documented On 2 10:34AM ; [facility] Plan of Treatment Pending Tests Order Diagnosis Results Due Ordering Palmira Allen Labs - Aspiration Aspiration 07/23/22 Nikolai teresa MD Last Documented On 2 3:01PM ; [facility] Instructions to patient Lose weight Last Documented On 3 9:11AM ; [facility] Lose weight Last Documented On 3 10:13AM ; [facility] Lose weight Last Documented On 3 9:03AM ; [facility] Lose weight Last Documented On 3 8:19AM ; [facility] Lose weight Last Documented On 2 3:19PM ; [facility] Lose weight Last Documented On 2 10:52AM ; [facility] Assessments Includes: Assessments for all patient encounters Findings Encounter Date Overweight NEW PROBLEM/EST PT with Ethan Allen MD 07/29/2023 Last Documented On 3 1:40PM ; [facility] Instructions Includes: Instructions for all patient encounters Instructions to patient Lose weight Last Documented On 3 9:11AM ; [facility] Lose weight Last Documented On 3 10:13AM ; [facility] Lose weight Last Documented On 3 9:03AM ; [facility] Lose weight Last Documented On 3 8:19AM ; [facility] Lose weight Last Documented On 2 3:19PM ; [facility] Lose weight Last Documented On 2 10:52AM ; [facility] Medical Equipment - Implanted Devices Includes: Current and historical Devices No Medical Equipment Recorded Medications Includes: Current and historical Medications Current Medications (continue as prescribed) Ozempic (0.25 or 0.5 MG/DOSE ) 2 MG/3ML Subcutaneous Solution Pen-injector 07/26/2024 Provider: Diagnosis: Last Documented On 4 10:39AM By Kelsey Parisi ; [facility] Mupirocin 2% External Ointment 07/21/2023 Provider: Mainor Sargent MD Diagnosis: Last Documented On 3 9:11AM By Julianna Saba ; [facility] HumaLOG Mix 75/25 KwikPen (7 5-25) 100 UNIT/ML Subcutaneous Suspension Pen-injector 07/19/2023 Provider: James Huitron MD Diagnosis: Last Documented On 3 3:35PM By Julianna Saba ; [facility] Sulfamethoxazole-Trimethoprim 800-160 MG Oral Tablet 0 07/19/2023 Provider: Diagnosis: Last Documented On 3 9:11AM By Julianna Saba ; [facility] metroNIDAZOLE 500 MG Oral Tablet 07/19/2023 Provider : Diagnosis: Last Documented On 3 9:11AM By Julianna Saba ; [facility] ALPRAZolam 0.5 MG Oral Tablet 07/11/2023 Provider: Festus Huitron MD Diagnosis: Last Documented On 3 9:11AM By Julianna Saba ; [facility] Meloxicam 15 MG Oral Tablet 07/09/2023 Provider: Festus Huitron MD Diagnosis: Last Documented On 3 9:11AM By Julianna Saba ; [facility] Diclofenac Sodium 1% External Gel 07/08/2023 Provide r: Marquez Landa MD Diagnosis: Last Documented On 3 9:11AM By Julianna Saba ; [facility] Lisinopril 20 MG Oral Tablet 06/30/2023 Provider: Festus Huitron MD Diagnosis: Last Documented On 3 3:35PM By Julianna Saba ; [facility] Past Medications on file traMADol HCl 50 MG Oral Tablet 12/15/2022 - 12/20/2022 Provider: Nikolai teresa MD Diagnosis: 1-2 po q 4-6h Last Documented On 3 11:51AM By Sourav Allen ; [facility] HYDROcodone-Acetaminophen 10 -325 MG Oral Tablet 12/15/2022 - 12/25/2022 Provider: Nikolai Allen MD Diagnosis: [id number] Last Documented On 3 2:08PM By Sourav Allen ; [facility] Ondansetron HCl 4 MG Oral Tablet 12/07/2022 - 12/12/2022 Provider: Nikolai Allen MD Diagnosis: [id number] Last Documented On 3 9:56AM By Dottie Acosta ; [facility] MS Contin 15 MG Oral Tablet Extended Release 11/24/2022 - 12/01/2022 Provider: Nikolai Allen MD Diagnosis: 1 tab every 12 hours Last Documented On 3 11:22AM By Sourav Allen ; [facility] HYDROcodone-Acetaminophen 10 -325 MG Oral Tablet 11/24/2022 - 12/04/2022 Provider: Nikolai Allen MD Diagnosis: 1-2 po q 4-6h Last Documented On 3 11:21AM By Sourav Allen ; [facility] Ondansetron HCl 4 MG Oral Tablet 11/24/2022 - 11/29/2022 Provider: Nikolai Allen MD Diagnosis: [id number] Last Documented On 3 11:21AM By Sourav Allen ; [facility] Meloxicam 15 MG Oral Tablet 11/24/2022 - 12/24/2022 Provider: Nikolai teresa MD Diagnosis: once a day Last Documented On 3 11:21AM By Sourav Allen ; [facility] Colace 100 MG Oral Capsule 11/24/2022 - 02/22/2023 Provider: Nikolai tersea MD Diagnosis: 1-2 tabs daily Last Documented On 11:21AM By Sourav Allen ; [facility] Cefadroxil 500 MG Oral Capsule 11/24/2022 - 11/27/2022 Provider: Nikolai teresa MD Diagnosis: twice a day Last Documented On 3 11:21AM By Sourav Allen ; [facility] Aspirin 81 MG Oral Tablet Delayed Release 11/24/2022 - 03/30/2023 Provider: Nikolai Allen MD Diagnosis: twice a day Last Documented On 11:21AM By Sourav Allen ; [facility] traMADol HCl 50 MG Oral Tablet 11/24/2022 - 11/29/2022 Provider: Nikolai teresa MD Diagnosis: 1-2 po q 4-6h Last Documented On 3 11:21AM By Sourav Allen ; [facility] Vitamin D3 50 MCG (1999 [place]) Oral Tablet 11/03/2022 - 12/03/2022 Provider: Carrie PABLO Diagnosis: once a day Last Documented On 3 2:43PM By Carrie Sandoval ; [facility] Esomeprazole Magnesium 40 MG Oral Capsule Delayed Release 07/13/2022 - 07/28/2023 Provider: Festus Huitron MD Diagnosis: Last Documented On 3 3:35PM By Julianna Saba ; [facility] Lisinopril 10 MG Oral Tablet 07/13/2022 - 07/28/2023 Palmira bey: Festus Huitron MD Diagnosis: Last Documented On 3 3:35PM By Julianna Saba ; [facility] Zolpidem Tartrate 10 MG Oral Tablet 07/06/2022 - 07/28 Provider: Festus Huitron MD Diagnosis: Last Documented On 3 3:35PM By Julianna Saba ; [facility] Rosuvastatin Calcium 10 MG O ral Tablet 06/27/2022 - 07/28/2023 Provider: Festus Huitron MD Diagnosis: Last Documented On 3 3:35PM By Julianna Saba ; [facility] Insulin Lispro Prot & Lispro (75-25) 100 UNIT/ML Subcutaneous Suspension Pen-injector 01/16/2022 - 07/28/2023 Provider: Festus Huitron MD Diagnosis: Last Documented On 3 3:35PM By Julianna Saba ; [facility] HYDROcodone-Acetaminophen 10 -325 MG Oral Tablet 11/12/2021 - 07/28/2023 Provider: Marquez Landa MD Diagnosis: Last Documented On 3 3:35PM By Julianna Saba ; [facility] Diclofenac Sodium 1% External Gel 11/09/2021 - 023 Provider: Marquez Landa MD Diagnosis: Last Documented On 3 8:14AM By Celeste Aleman ; [facility] Acetaminophen-Codeine 300-60 MG Oral Tablet 11/07/2021 - 11/02/2022 Provider: Marquez Rose Diagnosis: Last Documented On 3 8:14AM By Celeste Aleman ; [facility] ALPRAZolam 0.5 MG Oral Tablet 11/01/2021 - 07/28/2023 Provider: Festus Huitron MD Diagnosis: Last Documented On 3 3:35PM By Julianna Saba ; [facility] Medications Administered Includes: Administered Medications in patient's chart No Administered Medications Recorded Vital Signs Includes: Vital Signs from 02/02/2024 through 02/01/2025 Vital Name 11/01/2024 08:57A 08/03/2024 10: 42A Height (in) 76 76 Weight (lb) 225 225 Body Mass Index 27.4 27.4 Body Surface Area 2.3 2.3 Note: hj sv Last Documented: On 11/01/2024 8:57AM ; [facility] On 08/03/2024 10:43AM ; [facility] Results Includes: Results from 02/02/2024 through 02/01/2025 No Results Recorded For Specified Dates History of Present Illness History of Present Illness not supported for this document type No History of Present Illness Recorded Social History Description Last Updated Exercising regularly 03/04/2023 Last Documented On 3 12:26PM ; [facility] Tobacco non-user 02/19/2023 Last Documented On 3 12:43PM ; [facility] Not a current smoker. 02/19/2023 Last Documented On 3 12:43PM ; [facility] Non-smoker 11/13/2021 Last Documented On 2 11:51AM ; [facility] Caffeine use 11/13/2021 Last Documented On 2 11:51AM ; [facility] No recent change in diet 11/13/2021 Last Documented On 2 11:51AM ; [facility] Not using alcohol 11/13/2021 Last Documented On 2 11:51AM ; [facility] Not using drugs 11/13/2021 Last Documented On 2 11:51AM ; [facility] Smoking Status Unknown Procedures and Surgical History Includes: Procedures from 02/02/2024 through 02/01/2025 Procedures Code Diagnosis Performing Provider Service Location Service Date X-RAY EXAM OF FOREARM 2 VIEWS (LEFT) 35880 Strain of musc/fasc/tend prt biceps, left arm, [facility] [place]fr[place] j [facility] B 11/01/2024 Last Documented On 5 10:02AM ; [facility] X-RAY EXAM OF SHOULDER 2-3 VIEWS (LEFT) 40477 Strain of musc/fasc/tend prt biceps, left arm, init Britni Van Bussum PA-C [facility] B 11/01/2024 Last Documented On 5 10:02AM ; [facility] X-RAY EXAM OF PELVIS 1-2 VIEWS 37027 Bilateral primary osteoarthritis of hip Nikolai Allen MD [facility] 08/03/2024 Last Documented On 4 11:22AM ; [facility] X-RAY EXAM OF KNEE 3 VIEWS (LEFT) 48682 Unilateral primary osteoarthritis, left knee Nikolai Allen MD [facility] 08/03/2024 Last Documented On 4 11:22AM ; [facility] Surgical History Last Updated History of total knee arthroplasty 12/15 Last Documented On 3 12:43PM ; [facility] Medical History Includes: Medical History in patient's chart Description Last Updated Use of CPAP 08/03/2024 Last Documented On 4 9:59AM ; [facility] History of arthritis 12/15/2022 Last Documented On 3 12:43PM ; [facility] History of diverticulitis of colon 12/15 Last Documented On 3 12:43PM ; [facility] History of Liver Disease 12/15/2022 Last Documented On 3 12:43PM ; [facility] History of diabetes mellitus 11/13/2021 Last Documented On 2 11:51AM ; [facility] History of Sleep Apnea 11/13/2021 Last Documented On 2 11:51AM ; [facility] Past Surgical History: 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 11/13/2021 Last Documented On 2 11:51AM ; [facility] Recent immunization for flu 06/25/2021 Last Documented On 2 11:51AM ; [facility] Recent immunization for pneumococcal pne umonia 06/25/2021 11/13/2021 Last Documented On 2 11:51AM ; [facility] Past medical and surgical history non-co ntributory 11/13/2021 Last Documented On 2 11:51AM ; [facility] Family History Includes: Family History in patient's chart Description Last Updated Diabetes mellitus 12/15/2022 Last Documented On 3 12:43PM ; [facility] Family history of cancer 12/15/2022 Last Documented On 3 12:43PM ; [facility] No significant family history 11/13/2021 Last Documented On 2 11:51AM ; [facility] Review of Systems Review of Systems not supported for this document type No Review of Systems Recorded Mental Status No Mental Status Recorded Functional Status No Functional Status Recorded Physical Exam Physical Exam not supported for this document type No Physical Exam Recorded Immunizations Includes: Immunizations in patient's chart Vaccine Dose # Date Site Reaction(s) Status Source Influenza 1 06/25/2021 Complete (Reported) Patient Last Documented On 2 10:51AM ; [facility] PCV (Pneumovax 23) 1 06/25/2021 Complete ( Reported) Patient Last Documented On 2 10:51AM ; [facility] Allergies Includes: Active, inactive, and resolved Allergies No Known Allergies Encounters Includes: Encounters from 02/02/2024 through 02/01/2025 Encounter Provider Location Date Check-In Time Check-Out Time Diagnosis Next Available Non-Specified Physician Britni Cutler PA-C [facility] 11/01/19 25 8:50AM 9:29AM Follow Up Nikolai Allen MD [facility] 08/03/20 24 9:54AM 11:19AM Insurance Includes: Active Insurance Policies Plan Name Member ID Group # Subscriber Relationship Effect jorje Dates 1 - Medicare Part B of [place] [id number] Leonardo S True Self 10/25/2020 - Un known 2 - [employer] [id number] Leonardo S True Self 10/25/2020 - Unknown Clinical Notes Includes: Signed Clinical Notes starting from 10/08/2022 * Progress note Date Encounter Last Documented by 11/01/2024 Next Available Non-S pecified Physician Last documented on 11/01/2024; 1:17 PM, Britni Cutler PA-C; [facility] Active Problems & Conditions - Joint [...] omissions. Care Team - Festus Huitron MD * Progress note Date Encounter Last Documented by 08/03/2024 Follow Up Last documented on 08/04/2024; 9:59 AM, Nikolai Allen MD; [facility] Active Problems & Conditions - Joint [...] Tests Imaging: X-Ray: An X-ray was performed bg 07/29/23. Plan Fall Risk Assessment: This patient [...]
== END 2025-01-31 23:59 | disposition home or self-care (01) ==
LOC: RAD 07:46
PROVIDERS: PCP Internal Medicine; Visit Provider Internal Medicine Gastroenterology
DX: K75.81 Nonalcoholic steatohepatitis (NASH) (principal); K74.60 Unspecified cirrhosis of liver
CPT/HCPCS: 74177; 76705; Q9967